=== PATIENT | male | born 1955 | race American Indian/Alaskan Native ===

== ENCOUNTER 2016-08-16 12:31 | Day surgery (SDC) | payer MEDICARE ==
[2016-08-16] MEDS ORDERED: HEPARIN/NS 5000 UNIT/500ML(CATH LAB) 1,000 ML IR ONE (14:45)
[2016-08-16] MEDS ORDERED: NACL 0.9% 250ML 250 ML ONE (14:51)
[2016-08-16] MEDS: XYLOCAINE 2% INFILTRATI ONE ×2 (15:31→15:46)
[2016-08-16] MEDS: HEPARIN 10,000 UNITS/10 ML ONE ×2 (15:31→15:50)
[2016-08-16] MEDS: SUBLIMAZE ONE ×3 (15:32→15:59)
[2016-08-16] MEDS: VERSED ONE ×3 (15:32→16:00)
[2016-08-16] MEDS ORDERED: ANCEF/STERILE WATER 2 GM/20 ML 2 GM/20 ML SYRINGE IV ONE (15:35)
--- NOTE | 2016-08-16 16:24 | Short Stay Summary ---
Short Stay Documentation Date of service: 08/16/16 - History Principal diagnosis: Malfunctioning dialysis access Past Medical History: dialysis, ESRD, other (hypotension) Past Surgical History: Other (prior LUE declots) Social history: no significant social history - Allergies and Medications Current Medications: Allergies No Known Allergies Allergy (Verified 08/16/16 14:35) Home Medications Medication Instructions Recorded Confirmed Last Taken Type Midodrine [Proamatine] 5 mg PO 3XW 08/16/16 08/16/16 08/16/16 06:30 History Sevelamer Carbonate [Renvela] 800 mg PO TIDWM 08/16/16 08/16/16 08/16/16 06:30 History Vit B Comp&C/Folic Acid/Vit D3 1 each PO QDAY 08/16/16 08/16/16 08/16/16 06:30 History [Dialyvite 800 Plus D Wafer] - Physical exam General appearance: no acute distress HEENT: Atraumatic Lungs: Normal air movement Breasts: deferred Heart: Regular rate Gastrointestinal: normal Male Genitourinary: deferred Rectal Exam: deferred Extremities: no ischemia Neurological: Normal speech - Brief post op/procedure progress note Date of procedure: 08/16/16 Pre-op diagnosis: Thrombosed LUE fistula Post-op diagnosis: same Procedure: LUE FGA amd declot Anesthesia: local Surgeon: ALLEN YOUNG Estimated blood loss: minimal Pathology: none Condition: stable - Disposition Condition at discharge: Good Disposition: DISCHARGED TO HOME OR SELFCARE Short Stay Discharge Plan Activity: advance as tolerated Weight Bearing Status: Weight Bear as Tolerated Diet: renal Wound: keep clean and dry, per your surgeon's advice Additional Instructions: F/U with outpatient Hemodialysis clinic
--- NOTE | 2016-08-16 16:31 | Operative Report ---
Operative Report Operative Report: EXAM: LEFT UPPER GENERALLY FISTULOGRAM AND THE CLOT CLINICAL INDICATION: THROMBOSED LEFT UPPER EXTREMITY FISTULA SECONDARY TO REPEATED HYPOTENSION DATE: 08/16/2016 PROCEDURE: Following an explanation of the risks, benefits and alternatives; written informed consent was obtained. The patient was brought to the injury graphic suite and placed in supine position on the examination table. Initial evaluation of the left upper extremity fistula demonstrated thrombus throughout the fistula. Patient's left upper arm was prepped and draped in the usual sterile fashion. The fistula was cannulated with a 7 cm 21-gauge needle directed towards the venous outflow. A 0.018 guidewire was advanced centrally. The needle was removed and a micro-sheath placed. The 0.018 guidewire was exchanged for a 0.035 guidewire and the micro-sheath exchanged for a 7 [place]uran vascular sheath. Accessed towards the arterial anastomosis was obtained in a similar fashion and a 6 [place] sheath placed towards the arterial anastomosis. A 4 [place] vertebral catheter was advanced over the 0.035 guidewire through the venous sheath. Together the guidewire and catheter were advanced centrally. Venography of the central veins to Mr. a widely patent central veins. There is thrombus extending from the axillary vein and a previously placed stent to the sheath insertion site. Mechanical thrombectomy of the fistula was then performed from distal to proximal using a Trerotola mechanical thrombectomy device. The 4 [place]uran vertebral catheter and 0.035 guidewire were then advanced through the arterial sheath through the arterial anastomosis and into the brachial artery. Digital traction angiography demonstrated thrombus from the serial anastomosis to the sheath insertion site. Mechanical thrombectomy of the fistula was then performed from just proximal to the arterial anastomosis to the sheath insertion site. Venoplasty of the arterial anastomosis was performed with a 6 mm balloon. This was also used to sweep the arterial plug. Following venoplasty of the arterial anastomosis, palpable thrill is present throughout the graft however it is somewhat faint. Digital subtraction venography demonstrates 30-40% stenosis within the body of the fistula. An 8 mm balloon was advanced over a guidewire through the venous lumen and deployed across the stenosis. The balloon was insufflated to 15 gm for 30 seconds at multiple locations. The balloon was removed. A strong thrill is present at the fistula. Digital subtraction angiography demonstrates brisk flow throughout the fistula. At this point, the catheters, guidewires and she's were removed and hemostasis achieved using 4-0 Vicryl suture and Dermabond. Sterile dressings were then applied. The patient tolerated the procedure well. There were no immediate post procedure complications. Conscious sedation was performed under the guidance of radiologic nursing. Continuous cardiopulmonary monitoring was utilized. IMPRESSION: 1) Left upper extremity fistulogram demonstrating thrombus throughout left upper extremity fistula secondary to recurrent bouts of hypotension. 2) Mechanical thrombectomy of the fistula as described.
[2016-08-16 16:45] VITALS: BP 130/75
== END 2016-08-16 16:48 | disposition home or self-care (01) ==
LOC: EDSTATUS 14:14 → OPU 14:19
PROVIDERS: ATTEND Radiology Diagnostic Radiology
DX: T82.868A Thrombosis due to vascular prosthetic devices, implants and grafts, initial encounter (principal); N18.6 End stage renal disease; Z99.2 Dependence on renal dialysis; Z87.891 Personal history of nicotine dependence; Y83.2 Surgical operation with anastomosis, bypass or graft as the cause of abnormal reaction of the patient, or of later complication, without mention of misadventure at the time of the procedure
CPT/HCPCS: 36415; 36905; 84132; C1725; C1751; C1757; C1769; C1894; J0690; J1644; J2250; J3010; J7050; Q9967

== ENCOUNTER 2017-10-24 15:14 | Inpatient (IN) | payer MEDICARE ==
[2017-10-24] MEDS ORDERED: ASPIRIN PO ONE (15:50)
[2017-10-24 16:22] LABS: Basophils # (Auto) 0.1 K/mm3 (0.0-0.1); Eosinophils # (Auto) 0.2 K/mm3 (0.0-0.4); Eosinophils % (Auto) 3.7 % (0.0-4.3); Hematocrit 38.4 % (35.5-45.6); Hemoglobin 12.9 gm/dl (11.8-15.2); Lymphocytes # (Auto) 1.5 K/mm3 (1.2-5.4); Lymphocytes % (Auto) 28.1 % (13.4-35.0); Mean Corpuscular HGB Conc 34 % (32-34); Mean Corpuscular Hemoglobin 30 pg (28-32); Mean Corpuscular Volume 89 fl (84-94); Monocytes # (Auto) 0.8 K/mm3 (0.0-0.8); Monocytes % (Auto) 15.9 % (0.0-7.3); Platelet Count 149 K/mm3 (140-440); Red Blood Count 4.31 M/mm3 (3.65-5.03)
[2017-10-24] MEDS ORDERED: PROVENTIL IH ONE (16:31)
[2017-10-24] MEDS ORDERED: D50W (25GM) Syringe IV ONE (16:31)
[2017-10-24] MEDS ORDERED: SODIUM BICARBONATE IV ONE (16:31)
[2017-10-24] MEDS ORDERED: HumuLIN R IV ONE (16:31)
[2017-10-24 16:35] LABS: Calcium 9.1 mg/dL (8.4-10.2)
--- NOTE | 2017-10-24 16:35 | Emergency Department Report ---
ED Palpitations HPI - General Chief Complaint: Arrhythmia/Palpitations Stated Complaint: LOW HEART RATE Time Seen by Provider: 10/24/17 16:25 Source: patient, RN notes reviewed Mode of arrival: Stretcher Limitations: No Limitations - History of Present Illness Initial Comments: This is a 62-year-old male. The patient is previously on known to this provider. He has a past medical history of end-stage renal disease, on dialysis Friday, Friday, Friday. His last dialysis session was on Friday. It was of normal length and duration. He denies dietary indiscretions. His mechanical energy engineer is Dr. Amador Patient was at dialysis today, was found to be bradycardic. He does not take any blood pressure medications that aren't negative inotropes. It was asymptomatic. He was sent to the ER for further evaluation and management. He denies headache, neck pain, chest pain, abdominal pain and shortness of breath. He has no complaints at this time. He denies dizziness and lightheadedness. In the emergency room, he was found to be in third-degree heart block with a heart rate in the 40s. His potassium was initially reported to me over the phone by the laboratory at 5.0, and he was initially ordered for hyperkalemia cocktail. However, laboratory and result of his labs with potassium of 3.7. After discussion with his covering mechanical energy engineer, Dr. Stallworth, it was deemed very unlikely that the patient had electrolyte disturbance that was causing his bradycardia. Therefore, nephrology did not recommend hyperkalemia cocktail or emergent dialysis. From a volume standpoint, patient appeared to be euvolemic or even hypovolemic. Case was discussed with the consulting bookstore clerk, Dr. Cordova, who is going to arrange temporary placement of a pacemaker. Patient did not endorse any risk factors for Lyme disease. The case was presented to the Hospital physician, Dr. Miguel who accepted the patient to the medical service. Complaint: irregular heart beat -: unknown Context: other Associated Symptoms: denies other symptoms - Related Data Home Medications Medication Instructions Recorded Confirmed Last Taken Midodrine [Proamatine] 5 mg PO 3XW 08/16/16 10/24/17 08/16/16 06:30 Sevelamer Carbonate [Renvela] 800 mg PO TIDWM 08/16/16 10/24/1708/16/17 06:30 Vit B Comp C/Folic Acid/Vit D3 1 each PO QDAY 08/16/16 10/24/17 08/16/16 06:30 [Dialyvite 800 Plus D Wafer] Allergies Allergy/AdvReac Type Severity Reaction Status Date / Time No Known Allergies Allergy Verified 08/16/16 14:35 ED Review of Systems ROS: Stated complaint: LOW HEART RATE Other details as noted in HPI Comment: All other systems reviewed and negative ED Past Medical Hx - Past Medical History Hx Hypertension: No Hx Heart Attack/AMI: No Hx Congestive Heart Failure: No Hx Diabetes: No Hx GERD: Yes Hx Renal Disease: Yes (dialysis M, W, F) - Surgical History Past Surgical History?: Yes Additional Surgical History: fistula to left upper arm - Social History Smoking Status: Current Every Day Smoker Substance Use Type: Alcohol - Medications Home Medications: Home Medications Medication Instructions Recorded Confirmed Last Taken Type Midodrine [Proamatine] 5 mg PO 3XW 08/16/16 10/24/17 08/16/16 06:30 History Sevelamer Carbonate [Renvela] 800 mg PO TIDWM 08/16/16 10/24/17 08/16/16 06:30 History Vit B Comp C/Folic Acid/Vit D3 1 each PO QDAY 08/16/16 10/24/17 08/16/16 06:30 History [Dialyvite 800 Plus D Wafer] ED Physical Exam - General Limitations: No Limitations General appearance: alert, in no apparent distress - Head Head exam: Present: atraumatic, normocephalic - Eye Eye exam: Present: normal appearance, EOMI. Absent: nystagmus - ENT ENT exam: Present: normal exam, normal orophraynx, mucous membranes moist, normal external ear exam - Neck Neck exam: Present: normal inspection, full ROM - Respiratory Respiratory exam: Present: normal lung sounds bilaterally. Absent: respiratory distress - Cardiovascular Cardiovascular Exam: Present: bradycardia, irregular rhythm, normal heart sounds. Absent: systolic murmur, diastolic murmur, rubs, gallop - GI/Abdominal GI/Abdominal exam: Present: soft, normal bowel sounds. Absent: distended, tenderness, guarding, rebound, rigid, pulsatile mass - Rectal Rectal exam: Present: deferred - Extremities Exam Extremities exam: Present: full ROM, other (upper extremity graft with no redness, pus or streaking. Chronic venous stasis changes noted in the bilateral lower extremities. There is no palpable cord. There is a negative Homans sign.). Absent: pedal edema, calf tenderness - Back Exam Back exam: Present: normal inspection, full ROM. Absent: tenderness, CVA tenderness (R), paraspinal tenderness, vertebral tenderness - Neurological Exam Neurological exam: Present: alert, oriented X3, CN II-XII intact, other ( Extraocular movements intact. Tongue midline. No facial droop. Facial sensation intact to light touch in the V1, V2, V3 distribution bilaterally. 5 and 5 strength in 4 extremities.. Sensation is intact to light touch in 4 extremities.). Absent: motor sensory deficit - Psychiatric Psychiatric exam: Present: normal affect, normal mood - Skin Skin exam: Present: warm, dry, intact, normal color. Absent: rash ED Course Vital Signs 10/24/17 10/24/17 10/24/17 15:47 17:05 19:25 Temperature 98 F Pulse Rate 45 L 42 L Pulse Rate [ 63 From Monitor] Pulse Rate [ None] Respiratory 16 16 18 Rate Blood Pressure 107/48 Blood Pressure 125/44 [Left] O2 Sat by Pulse 98 95 98 Oximetry 10/24/17 10/24/17 10/24/17 19:30 19:45 20:00 Temperature 98.0 F Pulse Rate Pulse Rate [ From Monitor] Pulse Rate [ 63 63 63 None] Respiratory 18 16 18 Rate Blood Pressure 88/61 117/67 Blood Pressure [Left] O2 Sat by Pulse 98 100 98 Oximetry 10/24/17 10/24/17 10/24/17 20:15 20:30 20:45 Temperature Pulse Rate Pulse Rate [ From Monitor] Pulse Rate [ 63 63 63 None] Respiratory 20 16 18 Rate Blood Pressure 118/62 101/53 111/58 Blood Pressure [Left] O2 Sat by Pulse 100 100 100 Oximetry 10/24/17 10/24/17 10/24/17 21:00 21:15 21:30 Temperature Pulse Rate 64 63 Pulse Rate [ From Monitor] Pulse Rate [ 63 None] Respiratory 18 14 13 Rate Blood Pressure 105/60 112/63 101/66 Blood Pressure [Left] O2 Sat by Pulse 100 100 100 Oximetry 10/24/17 10/24/17 10/24/17 21:45 22:00 22:15 Temperature Pulse Rate 63 63 63 Pulse Rate [ From Monitor] Pulse Rate [ None] Respiratory 18 12 21 Rate Blood Pressure 108/58 99/59 107/66 Blood Pressure [Left] O2 Sat by Pulse 100 100 100 Oximetry 10/24/17 10/24/17 10/24/17 22:31 22:45 23:00 Temperature Pulse Rate 63 63 63 Pulse Rate [ From Monitor] Pulse Rate [ None] Respiratory 14 11 L 13 Rate Blood Pressure 118/70 118/70 115/64 Blood Pressure [Left] O2 Sat by Pulse 98 97 92 Oximetry 10/24/17 10/24/17 10/24/17 23:15 23:31 23:45 Temperature Pulse Rate 64 63 63 Pulse Rate [ From Monitor] Pulse Rate [ None] Respiratory 14 20 17 Rate Blood Pressure 108/74 112/68 105/63 Blood Pressure [Left] O2 Sat by Pulse 95 96 98 Oximetry 10/24/17 10/25/17 10/25/17 23:52 00:00 00:11 Temperature 98.1 F Pulse Rate 63 64 63 Pulse Rate [ 63 From Monitor] Pulse Rate [ None] Respiratory 17 13 15 Rate Blood Pressure 105/63 107/64 104/62 Blood Pressure [Left] O2 Sat by Pulse 99 100 100 Oximetry 10/25/17 10/25/17 10/25/17 00:15 00:31 00:45 Temperature Pulse Rate 63 63 63 Pulse Rate [ From Monitor] Pulse Rate [ None] Respiratory 14 19 15 Rate Blood Pressure 104/62 105/63 105/63 Blood Pressure [Left] O2 Sat by Pulse 100 99 99 Oximetry 10/25/17 10/25/17 10/25/17 01:00 02:01 03:00 Temperature Pulse Rate 63 63 63 Pulse Rate [ From Monitor] Pulse Rate [ None] Respiratory 15 13 19 Rate Blood Pressure 100/61 100/50 94/56 Blood Pressure [Left] O2 Sat by Pulse 99 100 100 Oximetry ED Medical Decision Making - Lab Data Result diagrams: 10/24/17 16:07 10/27/17 03:10 Vital Signs 10/24/17 10/24/17 15:47 17:05 Temperature 98 F Pulse Rate 45 L 42 L Respiratory 16 16 Rate Blood Pressure 107/48 Blood Pressure 125/44 [Left] O2 Sat by Pulse 98 95 Oximetry Lab Results 10/24/17 10/24/1718 Range/Units 16:07 16:07 16:50 WBC 5.3 (4.5-11.0) K/mm3 RBC 4.31 (3.65-5.03) M/mm3 Hgb 12.9 (11.8-15.2) gm/dl Hct 38.4 (35.5-45.6) % MCV 89 (84-94) fl MCH 30 (28-32) pg MCHC 34 (32-34) % RDW 18.0 H (13.2-15.2) % Plt Count 149 (140-440) K/mm3 Lymph % (Auto) 28.1 (13.4-35.0) % [place] % (Auto) 15.9 H (0.0-7.3) % Eos % (Auto) 3.7 (0.0-4.3) % Baso % (Auto) 1.0 (0.0-1.8) % Lymph # 1.5 (1.2-5.4) K/mm3 [place] # 0.8 (0.0-0.8) K/mm3 Eos # 0.2 (0.0-0.4) K/mm3 Baso # 0.1 (0.0-0.1) K/mm3 Seg Neutrophils % 51.3 (40.0-70.0) % Seg Neutrophils # 2.7 (1.8-7.7) K/mm3 Sodium 139 (137-145) mmol/L Potassium 3.7 (3.6-5.0) mmol/L Chloride 93.8 L (98-107) mmol/L Carbon Dioxide 30 (22-30) mmol/L Anion Gap 19 mmol/L BUN 9 (9-20) mg/dL Creatinine 3.4 H (0.8-1.5) mg/dL Estimated GFR 22 ml/min BUN/Creatinine Ratio 3 % Glucose 104 H (75-100) mg/dL Calcium 9.1 (8.4-10.2) mg/dL Magnesium 2.20 (1.7-2.3) mg/dL Troponin T 0.081 H (0.00-0.029) ng/mL Triglycerides 124 (2-149) mg/dL Cholesterol 126 (50-199) mg/dL LDL Cholesterol Direct 58 (50-130) mg/dL HDL Cholesterol 57 (40-59) mg/dL Cholesterol/HDL Ratio 2.21 % TSH (0.270-4.200) mlU/mL Free T4 (0.76-1.46) ng/dL 10/24/17 10/24/17 Range/Units 16:50 16:50 WBC (4.5-11.0) K/mm3 RBC (3.65-5.03) M/mm3 Hgb (11.8-15.2) gm/dl Hct (35.5-45.6) % MCV (84-94) fl MCH (28-32) pg MCHC (32-34) % RDW (13.2-15.2) % Plt Count (140-440) K/mm3 Lymph % (Auto) (13.4-35.0) % [place] % (Auto) (0.0-7.3) % Eos % (Auto) (0.0-4.3) % Baso % (Auto) (0.0-1.8) % Lymph # (1.2-5.4) K/mm3 [place] # (0.0-0.8) K/mm3 Eos # (0.0-0.4) K/mm3 Baso # (0.0-0.1) K/mm3 Seg Neutrophils % (40.0-70.0) % Seg Neutrophils # (1.8-7.7) K/mm3 Sodium (137-145) mmol/L Potassium (3.6-5.0) mmol/L Chloride (98-107) mmol/L Carbon Dioxide (22-30) mmol/L Anion Gap mmol/L BUN (9-20) mg/dL Creatinine (0.8-1.5) mg/dL Estimated GFR ml/min BUN/Creatinine Ratio % Glucose (75-100) mg/dL Calcium (8.4-10.2) mg/dL Magnesium (1.7-2.3) mg/dL Troponin T (0.00-0.029) ng/mL Triglycerides (2-149) mg/dL Cholesterol (50-199) mg/dL LDL Cholesterol Direct (50-130) mg/dL HDL Cholesterol (40-59) mg/dL Cholesterol/HDL Ratio % TSH 1.300 (0.270-4.200) mlU/mL Free T4 1.47 H (0.76-1.46) ng/dL - EKG Data -: EKG Interpreted by Me - EKG Data When compared to previous EKG there are: previous EKG unavailable 10/24/17 17:37 Bradycardia, third-degree AV block, normal axis, not having chest pain, not morphologically consistent with ST elevation myocardial infarction. - Medical Decision Making Differential diagnosis, including the not limited to: Her degree heart block, hyperkalemia, conduction disturbance, Assessment and plan: 62-year-old now with third-degree heart block. He is not hyperkalemic. He has no other symptoms. No risk factors for Lyme disease. This may be a primarily conduction disturbance. He is hemodynamically stable at this time. He is going to the Mixing Machine Tender for a pacemaker Placement. Critical Care Time: Yes Critical care time in (mins) excluding proc time.: 35 Critical care attestation.: If time is entered above; I have spent that time in minutes in the direct care of this critically ill patient, excluding procedure time. Critical Care Time: Critical care time includes multiple bedside reevaluation, multiple discussions with multiple consulting services, including cardiology, nephrology, hospital medicine. ED Disposition Clinical Impression: Third degree AV block, ESRD (end stage renal disease) Disposition: 09 OP ADMIT IP TO THIS HOSP Is pt being admited?: Yes Condition: Good
[2017-10-24] MEDS ORDERED: TYLENOL PO PRN (16:38)
[2017-10-24] MEDS ORDERED: ZOFRAN IV PRN (16:38)
[2017-10-24] MEDS ORDERED: SODIUM CHLORIDE FLUSH SYRINGE 10 ML IV PRN (16:38)
--- NOTE | 2017-10-24 16:38 | History and Physical Report ---
History of Present Illness Chief complaint: My heart is slow History of present illness: 62 YO Male with ESRD on HD (M,W,F), GERD, Nicotine Dependence presents to ED for evaluation. Pt was in his usual state of health and went to his scheduled dialysis session. Pt was found to have bradycardia with heart rate of 41. EMS notified, and upon arrival the patient was found to have symptomatic bradycardia. Pt transported to [facility] for further care and evaluation. Pt seen and evaluated in ED and found to have heart block. Cardiology consulted in ED and patient taken urgently to [facility] for intervention. Pt denies fever, chills, CP , Palpitations, NVD, Syncope, headache, Seizure, BRBPR, Unintentional weight loss, night sweats, skin rash, or recent ill contacts. Pt admitted to ICU. Past History Past Medical History: ESRD Past Surgical History: Other (LUE AVF) Social history: , smoking. denies: alcohol abuse, prescription drug abuse Family history: hypertension Medications and Allergies Allergies Allergy/AdvReac Type Severity Reaction Status Date / Time No Known Allergies Allergy Verified 08/16/16 14:35 Home Medications Medication Instructions Recorded Confirmed Last Taken Type Midodrine [Proamatine] 5 mg PO 3XW 08/16/16 10/24/17 08/16/16 06:30 History Sevelamer Carbonate [Renvela] 800 mg PO TIDWM 08/16/16 10/24/17 08/16/16 06:30 History Vit B Comp C/Folic Acid/Vit D3 1 each PO QDAY 08/16/16 10/24/17 08/16/16 06:30 History [Dialyvite 800 Plus D Wafer] Active Meds: Active Medications Calcium Gluconate 2,000 mg/ (Sodium Chloride) 120 mls @ 660 mls/hr IV ONCE ONE Stop: 10/24/17 16:41 Sodium Bicarbonate (Sodium Bicarbonate) 50 meq IV ONCE ONE Stop: 10/24/17 16:32 Review of Systems Constitutional: other (slow heart beat), no weight loss, no weight gain, no fever, no chills Ears, nose, mouth and throat: no ear pain, no ear discharge, no tinnitis, no decreased hearing, no nose pain, no nasal congestion, no nasal discharge, no sinus pressure Cardiovascular: no chest pain, no orthopnea, no palpitations, no rapid/ irregular heart beat, no edema, no syncope, no lightheadedness Respiratory: no cough, no cough with sputum, no excessive sputum, no hemoptysis , no shortness of breath Gastrointestinal: no abdominal pain, no nausea, no vomiting, no diarrhea, no constipation Genitourinary Male: no dysuria, no hematuria, no flank pain, no discharge, no urinary frequency, no urinary hesitancy, no nocturia, no incontinence Rectal: no pain, no incontinence, no bleeding Musculoskeletal: no neck stiffness, no neck pain, no shooting arm pain, no arm numbness/tingling, no low back pain, no shooting leg pain, no leg numbness/ tingling Integumentary: no rash, no pruritis, no redness, no sores, no wounds, no jaundice, no boils Neurological: no head injury, no transient paralysis, no paralysis, no weakness , no parathesias, no numbness, no tingling, no seizures, no syncope Psychiatric: no anxiety, no memory loss, no change in sleep habits, no sleep disturbances, no insomnia, no hypersomnia, no change in appetite, no change in libido, no suicidal ideation Endocrine: no cold intolerance, no heat intolerance, no polyphagia, no excessive thirst, no polydipsia, no polyuria, no nocturia, no excessive sweating Hematologic/Lymphatic: no easy bruising, no easy bleeding Allergic/Immunologic: no urticaria, no allergic rhinitis Exam - Constitutional Vitals: Temp Pulse Resp BP Pulse Ox 98 F 45 L 16 107/48 98 10/24/17 15:47 10/24/17 15:47 10/24/17 15:47 10/24/17 15:47 10/24/17 15:47 General appearance: Present: mild distress - EENT Eyes: Present: PERRL ENT: hearing intact, clear oral mucosa - Neck Neck: Present: supple, normal ROM - Respiratory Respiratory effort: normal Respiratory: bilateral: CTA - Cardiovascular Rhythm: other (bradycardia) Heart Sounds: Present: S1 & S2. Absent: rub, click - Extremities Extremities: pulses symmetrical, No edema Extremity abnormal: edema Peripheral Pulses: within normal limits - Abdominal General gastrointestinal: Present: soft, non-tender, non-distended, normal bowel sounds Male genitourinary: Present: normal - Integumentary Integumentary: Present: clear, warm, dry - Musculoskeletal Musculoskeletal: gait normal, strength equal bilaterally - Psychiatric Psychiatric: appropriate mood/affect, intact judgment & insight - Neurologic Neurologic: CNII-XII intact, moves all extremities Results - Labs CBC & Chem 7: 10/24/17 16:07 10/24/17 16:07 Labs: Abnormal lab results 10/24/17 10/24/17 Range/Units 16:07 16:07 RDW 18.0 H (13.2-15.2) % [place] % (Auto) 15.9 H (0.0-7.3) % Chloride 93.8 L (98-107) mmol/L Creatinine 3.4 H (0.8-1.5) mg/dL Glucose 104 H (75-100) mg/dL Troponin T 0.081 H (0.00-0.029) ng/mL Assessment and Plan - Patient Problems (1) Third degree AV block Current Visit: No Status: Acute Plan to address problem: Cardiology consulted, Pt taken urgently to labor and delivery registered nurse for pacemeker placement. The high probability of a clinically significant, sudden or life threatening deterioration of the [cardiac, renal, pulmonary] system(s) required my full and direct attention, intervention and personal management. The aggregate critical care time was [65] minutes. This time is in addition to time spent performing reported procedures but includes the following: [x] Data Review and interpretation [x] Patient assessment and monitoring of vital signs [x] Documentation [x] Medication orders and management (2) GERD (gastroesophageal reflux disease) Current Visit: Yes Status: Acute Qualifiers: Esophagitis presence: without esophagitis Qualified Code(s): K21.9 - Gastro -esophageal reflux disease without esophagitis Plan to address problem: PPI therapy, supportive care (3) Nicotine dependence Current Visit: Yes Status: Acute Qualifiers: Substance use status: in withdrawal Plan to address problem: supportive care. (4) ESRD (end stage renal disease) Current Visit: No Status: Acute Plan to address problem: nephrology consulted in ED, dialysis as per renal team. (5) DVT prophylaxis Current Visit: Yes Status: Acute Plan to address problem: scd to ble while in bed
[2017-10-24 16:51] LABS: Chol/HDL Ratio 2.21 %
--- NOTE | 2017-10-24 17:14 | Consultation ---
History of Present Illness Consult date: 10/24/17 Consult reason: other (Complete heart block) History of present illness: This is a 62yr old male with end stage renal disease who was sent from dialysis with bradycardia, found to be in 3rd degree AV block, with a rate of 41. The etiology of his heart block is uncertain. Patient remains asymptomatic. His blood pressure is stable. He has a normal potassium of 3.4. TSH results are pending. Patient denies a prior cardiac history. Cardiac consultation was requested. Medications and Allergies Allergies Allergy/AdvReac Type Severity Reaction Status Date / Time No Known Allergies Allergy Verified 08/16/16 14:35 Home Medications Medication Instructions Recorded Confirmed Last Taken Type Midodrine [Proamatine] 5 mg PO 3XW 08/16/16 10/24/17 08/16/16 06:30 History Sevelamer Carbonate [Renvela] 800 mg PO TIDWM 08/16/16 10/24/17 08/16/16 06:30 History Vit B Comp C/Folic Acid/Vit D3 1 each PO QDAY 08/16/16 10/24/17 08/16/16 06:30 History [Dialyvite 800 Plus D Wafer] Active Meds: Active Medications Acetaminophen (Tylenol) 650 mg PO Q4H PRN PRN Reason: Pain MILD(1-3)/Fever >100.5/TOURE Calcium Gluconate 2,000 mg/ (Sodium Chloride) 120 mls @ 360 mls/hr IV ONCE ONE Stop: 10/24/17 17:49 Ondansetron HCl (Zofran) 4 mg IV Q8H PRN PRN Reason: Nausea And Vomiting Sodium Chloride (Sodium Chloride Flush Syringe 10 Ml) 10 ml IV BID LILI Sodium Chloride (Sodium Chloride Flush Syringe 10 Ml) 10 ml IV PRN PRN PRN Reason: LINE FLUSH Physical Examination Vital Signs Temp Pulse Resp BP Pulse Ox 98 F 45 L 16 107/48 98 10/24/17 15:47 10/24/17 15:47 10/24/17 15:47 10/24/17 15:47 10/24/17 15:47 General appearance: no acute distress HEENT: Positive: PERRL Cardiac: Positive: Bradycardia Lungs: Positive: Decreased Breath Sounds Neuro: Positive: Grossly Intact Extremities: Absent: edema Results 10/24/17 16:07 10/24/17 16:07 Lipids 10/24/17 Range/Units 16:07 Triglycerides 124 (2-149) mg/dL Cholesterol 126 (50-199) mg/dL HDL Cholesterol 57 (40-59) mg/dL Cholesterol/HDL Ratio 2.21 % CBC 10/24/17 Range/Units 16:07 WBC 5.3 (4.5-11.0) K/mm3 RBC 4.31 (3.65-5.03) M/mm3 Hgb 12.9 (11.8-15.2) gm/dl Hct 38.4 (35.5-45.6) % Plt Count 149 (140-440) K/mm3 Lymph # 1.5 (1.2-5.4) K/mm3 [place] # 0.8 (0.0-0.8) K/mm3 Eos # 0.2 (0.0-0.4) K/mm3 Baso # 0.1 (0.0-0.1) K/mm3 Comprehensive Metabolic Panel 10/24/17 Range/Units 16:07 Sodium 139 (137-145) mmol/L Potassium 3.7 (3.6-5.0) mmol/L Chloride 93.8 L (98-107) mmol/L Carbon Dioxide 30 (22-30) mmol/L BUN 9 (9-20) mg/dL Creatinine 3.4 H (0.8-1.5) mg/dL Glucose 104 H (75-100) mg/dL Calcium 9.1 (8.4-10.2) mg/dL Assessment and Plan - Patient Problems (1) Third degree AV block Current Visit: No Status: Acute Plan to address problem: We will proceed with placement of a temporary pacemaker. (2) ESRD (end stage renal disease) Current Visit: No Status: Acute
[2017-10-24] MEDS ORDERED: HEPARIN/NS 5000 UNIT/500ML(CATH LAB) 1,000 ML IR ONE (17:22)
[2017-10-24] MEDS ORDERED: HEPARIN 10,000 UNITS/10 ML ONE (17:22)
[2017-10-24] MEDS ORDERED: SUBLIMAZE ONE (17:23)
[2017-10-24] MEDS ORDERED: NACL 0.9% 500 ML 500 ML ONE (17:23)
[2017-10-24] MEDS ORDERED: VERSED ONE (17:23)
[2017-10-24] MEDS ORDERED: XYLOCAINE 2% INFILTRATI ONE (17:23)
[2017-10-24] MEDS ORDERED: CALCIUM GLUCONATE 2,000 MG in NACL 0.9% 100 ML IV ONE (17:30)
[2017-10-24] MEDS ORDERED: NACL 0.9% 100 ML IV PRN (20:30)
--- NOTE | 2017-10-24 20:30 | Consultation ---
History of Present Illness Consult date: 10/24/17 Requesting physician: JOHN MACK Reason for consult: other (Complete Heart Block) History of present illness: PULMONARY/CCM CONSULT NOTE (Full dictation # [id number]) Please see dictated notes for full details Past History Past Medical History: ESRD Past Surgical History: Other (LUE AVF) Social history: , smoking. denies: alcohol abuse, prescription drug abuse Family history: hypertension Medications and Allergies Allergies Allergy/AdvReac Type Severity Reaction Status Date / Time No Known Allergies Allergy Verified 08/16/16 14:35 Home Medications Medication Instructions Recorded Confirmed Last Taken Type Midodrine [Proamatine] 5 mg PO 3XW 08/16/16 10/24/17 08/16/16 06:30 History Sevelamer Carbonate [Renvela] 800 mg PO TIDWM 08/16/16 10/24/17 08/16/16 06:30 History Vit B Comp C/Folic Acid/Vit D3 1 each PO QDAY 08/16/16 10/24/17 08/16/16 06:30 History [Dialyvite 800 Plus D Wafer] Active Meds: Active Medications Acetaminophen (Tylenol) 650 mg PO Q4H PRN PRN Reason: Pain MILD(1-3)/Fever >100.5/TOURE Ondansetron HCl (Zofran) 4 mg IV Q8H PRN PRN Reason: Nausea And Vomiting Sodium Chloride (Sodium Chloride Flush Syringe 10 Ml) 10 ml IV BID LILI Sodium Chloride (Sodium Chloride Flush Syringe 10 Ml) 10 ml IV PRN PRN PRN Reason: LINE FLUSH Physical Examination Vital signs: Vital Signs Temp Pulse Resp BP Pulse Ox 98 F 45 L 16 107/48 98 10/24/17 15:47 10/24/17 15:47 10/24/17 15:47 10/24/17 15:47 10/24/17 15:47 Results - Laboratory Findings CBC and BMP: 10/24/17 16:07 10/25/17 11:30 Abnormal lab findings: Abnormal Labs 10/24/17 10/24/17 10/24/17 16:07 16:07 16:50 RDW 18.0 H [place] % (Auto) 15.9 H Chloride 93.8 L Creatinine 3.4 H Glucose 104 H Troponin T 0.081 H Free T4 1.47 H 10/24/17 19:51 RDW [place] % (Auto) Chloride Creatinine Glucose Troponin T 0.076 H Free T4
--- NOTE | 2017-10-24 21:22 | XRay Report ---
FINAL REPORT PROCEDURE: Chest. TECHNIQUE: Portable AP view. HISTORY: End stage renal disease, heart block. COMPARISON: No prior studies are available for comparison. FINDINGS: The heart size is normal. There is mild tortuosity and calcification in the thoracic aorta. The right lung is clear. There is some opacity in the left costophrenic angle. This could represent early pneumonia or a small pleural effusion. The soft tissues are unremarkable. There is a vascular stent in the left arm. The regional skeleton appears intact. IMPRESSION: Early left basilar pneumonia versus small pleural effusion.
--- NOTE | 2017-10-25 10:41 | Procedure Note ---
INDICATION: Complete heart block with a junctional escape rhythm. DESCRIPTION OF PROCEDURE: After obtaining the consent, the patient was draped using sterile technique. Under ultrasound guidance, the right IJ was cannulated. An 0.035 wire was inserted. Positioning was verified using x-ray. A 6-[place] vascular sheath was then inserted into the right internal jugular vein. A balloon-tipped pacemaker wire was inserted and positioned in the RV apex. Pacing was verified. The pacemaker parameters were set at 60 beats per minute with a 5-milliampere amplitude and 5 millivolt sensitivity. No complications occurred during the procedure. Estimated blood loss was minimal. No sedation was given during the procedure. IMPRESSION: Successful insertion of a transvenous pacemaker through right internal jugular vein. RECOMMENDATION: Observe over the weekend and proceed with a permanent pacemaker insertion, early next week. JOB# [id number] ONELIA/KAMINI
--- NOTE | 2017-10-25 11:24 | Progress Note ---
Assessment and Plan - Patient Problems (1) SSS (sick sinus syndrome) Current Visit: Yes Status: Acute (2) ESRD (end stage renal disease) on dialysis Current Visit: Yes Status: Acute Subjective Date of service: 10/25/17 Interval history: NO C\O Objective Vital Signs Temp Pulse Pulse Pulse Resp BP BP 10/25/17 11:00 60 15 99/64 10/25/17 10:00 60 18 97/51 10/25/17 09:00 60 18 101/59 10/25/17 08:00 97.8 F 60 15 96/63 10/25/17 07:00 64 17 97/53 10/25/17 06:00 63 21 95/62 10/25/17 05:00 63 11 L 95/62 10/25/17 04:40 98.1 F 10/25/17 04:30 63 18 10/25/17 04:00 63 17 97/51 10/25/17 03:00 63 19 94/56 10/25/17 02:01 63 13 100/50 10/25/17 01:00 63 15 100/61 10/25/17 00:45 63 15 105/63 10/25/17 00:31 63 19 105/63 10/25/17 00:15 63 14 104/62 10/25/17 00:11 63 15 104/62 10/25/17 00:00 98.1 F 64 63 13 107/64 10/24/17 23:52 63 17 105/63 10/24/17 23:45 63 17 105/63 10/24/17 23:31 63 20 112/68 10/24/17 23:15 64 14 108/74 10/24/17 23:00 63 13 115/64 10/24/17 22:45 63 11 L 118/70 10/24/17 22:31 63 14 118/70 10/24/17 22:15 63 21 107/66 10/24/17 22:00 63 12 99/59 10/24/17 21:45 63 18 108/58 10/24/17 21:30 63 13 101/66 10/24/17 21:15 64 14 112/63 10/24/17 21:00 63 18 105/60 10/24/17 20:45 63 18 111/58 10/24/17 20:30 63 16 101/53 10/24/17 20:15 63 20 118/62 10/24/17 20:00 98.0 F 63 18 117/67 10/24/17 19:45 63 16 88/61 10/24/17 19:30 63 18 10/24/17 19:25 63 18 10/24/17 17:05 42 L 16 125/44 10/24/17 15:47 98 F 45 L 16 107/48 Pulse Ox 10/25/17 11:00 99 10/25/17 10:00 96 10/25/17 09:00 100 10/25/17 08:00 94 10/25/17 07:00 96 10/25/17 06:00 95 10/25/17 05:00 97 10/25/17 04:40 10/25/17 04:30 100 10/25/17 04:00 100 10/25/17 03:00 100 10/25/17 02:01 100 10/25/17 01:00 99 10/25/17 00:45 99 10/25/17 00:31 99 10/25/17 00:15 100 10/25/17 00:11 100 10/25/17 00:00 100 10/24/17 23:52 99 10/24/17 23:45 98 10/24/17 23:31 96 10/24/17 23:15 95 10/24/17 23:00 92 10/24/17 22:45 97 10/24/17 22:31 98 10/24/17 22:15 100 10/24/17 22:00 100 10/24/17 21:45 100 10/24/17 21:30 100 10/24/17 21:15 100 10/24/17 21:00 100 10/24/17 20:45 100 10/24/17 20:30 100 10/24/17 20:15 100 10/24/17 20:00 98 10/24/17 19:45 100 10/24/17 19:30 98 10/24/17 19:25 98 10/24/17 17:05 95 10/24/17 15:47 98 - Physical Examination General: No Apparent Distress HEENT: Positive: PERRL Neck: Positive: neck supple Cardiac: Positive: Regular Rate, Other (TEMP PACED-R.IJ) Lungs: Positive: clear to auscultation Neuro: Positive: Grossly Intact Abdomen: Positive: Other (HERNIA) Extremities: Absent: edema (NO) - Labs and Meds Lipids 10/24/17 Range/Units 16:07 Triglycerides 124 (2-149) mg/dL Cholesterol 126 (50-199) mg/dL HDL Cholesterol 57 (40-59) mg/dL Cholesterol/HDL Ratio 2.21 % CBC 10/24/17 Range/Units 16:07 WBC 5.3 (4.5-11.0) K/mm3 RBC 4.31 (3.65-5.03) M/mm3 Hgb 12.9 (11.8-15.2) gm/dl Hct 38.4 (35.5-45.6) % Plt Count 149 (140-440) K/mm3 Lymph # 1.5 (1.2-5.4) K/mm3 [place] # 0.8 (0.0-0.8) K/mm3 Eos # 0.2 (0.0-0.4) K/mm3 Baso # 0.1 (0.0-0.1) K/mm3 Comprehensive Metabolic Panel 10/24/17 Range/Units 16:07 Sodium 139 (137-145) mmol/L Potassium 3.7 (3.6-5.0) mmol/L Chloride 93.8 L (98-107) mmol/L Carbon Dioxide 30 (22-30) mmol/L BUN 9 (9-20) mg/dL Creatinine 3.4 H (0.8-1.5) mg/dL Glucose 104 H (75-100) mg/dL Calcium 9.1 (8.4-10.2) mg/dL
[2017-10-25] MEDS ORDERED: NACL 0.9% 100 ML IV PRN ×2 (11:53→14:46)
[2017-10-25 11:57] LABS: Calcium 9.2 mg/dL (8.4-10.2)
--- NOTE | 2017-10-25 12:05 | Progress Note ---
Assessment and Plan Assessment and plan: 62 YO Male with ESRD on HD (M,W,F), GERD, Nicotine Dependence presents to ED for evaluation. Pt was in his usual state of health and went to his scheduled dialysis session. Pt was found to have bradycardia with heart rate of 41. EMS notified, and upon arrival the patient was found to have symptomatic bradycardia. Pt transported to [facility] for further care and evaluation. Pt seen and evaluated in ED and found to have heart block. Cardiology consulted in ED and patient taken urgently to [facility] for intervention. Pt denies fever, chills, CP , Palpitations, NVD, Syncope, headache, Seizure, BRBPR, Unintentional weight loss, night sweats, skin rash, or recent ill contacts. Pt admitted to ICU. 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 Continues on external pacemaker No fever noted blood pressure controlled Hospitalist Physical - Physical exam Narrative exam: VITAL SIGNS: Reviewed. GENERAL: The patient appeared well nourished and normally developed. Vital signs as documented. HEAD: No signs of head trauma. EYES: Pupils are equal. Extraocular motions intact. EARS: Hearing grossly intact. MOUTH: Oropharynx is normal. NECK: No adenopathy, no JVD. CHEST: Chest with clear breath sounds bilaterally. No wheezes, rales, or rhonchi. CARDIAC: Paced rhythm. S1 and S2, VASCULAR: No Edema. Peripheral pulses normal and equal in all extremities. ABDOMEN: Soft, without detectable tenderness. No sign of distention. No rebound or guarding, and no masses palpated. Bowel Sounds normal. MUSCULOSKELETAL: Good range of motion of all major joints. Extremities without clubbing, cyanosis or edema. NEUROLOGIC EXAM: Alert and oriented x 3. No focal sensory or strength deficits. Speech normal. Follows commands. PSYCHIATRIC: Mood normal. SKIN: Temporary pacemaker via right IJ - Constitutional Vitals: Temp Pulse Resp BP Pulse Ox 97.8 F 60 15 99/64 99 10/25/17 08:00 10/25/17 11:00 10/25/17 11:00 10/25/17 11:00 10/25/17 11:00 General appearance: Present: mild distress Results - Labs CBC & Chem 7: 10/24/17 16:07 10/25/17 11:30 Labs: Laboratory Last Values WBC 5.3 K/mm3 (4.5-11.0) 10/24/17 16:07 RBC 4.31 M/mm3 (3.65-5.03) 10/24/17 16:07 Hgb 12.9 gm/dl (11.8-15.2) 10/24/17 16:07 Hct 38.4 % (35.5-45.6) 10/24/17 16:07 MCV 89 fl (84-94) 10/24/17 16:07 MCH 30 pg (28-32) 10/24/17 16:07 MCHC 34 % (32-34) 10/24/17 16:07 RDW 18.0 % (13.2-15.2) H 10/24/17 16:07 Plt Count 149 K/mm3 (140-440) 10/24/17 16:07 Lymph % (Auto) 28.1 % (13.4-35.0) 10/24/17 16:07 [place] % (Auto) 15.9 % (0.0-7.3) H 10/24/17 16:07 Eos % (Auto) 3.7 % (0.0-4.3) 10/24/17 16:07 Baso % (Auto) 1.0 % (0.0-1.8) 10/24/17 16:07 Lymph # 1.5 K/mm3 (1.2-5.4) 10/24/17 16:07 [place] # 0.8 K/mm3 (0.0-0.8) 10/24/17 16:07 Eos # 0.2 K/mm3 (0.0-0.4) 10/24/17 16:07 Baso # 0.1 K/mm3 (0.0-0.1) 10/24/17 16:07 Seg Neutrophils % 51.3 % (40.0-70.0) 10/24/17 16:07 Seg Neutrophils # 2.7 K/mm3 (1.8-7.7) 10/24/17 16:07 Sodium 138 mmol/L (137-145) 10/25/17 11:30 Potassium 3.4 mmol/L (3.6-5.0) L 10/25/17 11:30 Chloride 94.3 mmol/L (98-107) L 10/25/17 11:30 Carbon Dioxide 31 mmol/L (22-30) H 10/25/17 11:30 Anion Gap 16 mmol/L 10/25/17 11:30 BUN 17 mg/dL (9-20) 10/25/17 11:30 Creatinine 4.5 mg/dL (0.8-1.5) H 10/25/17 11:30 Estimated GFR 16 ml/min 10/25/17 11:30 BUN/Creatinine Ratio 4 % 10/25/17 11:30 Glucose 128 mg/dL (75-100) H 10/25/17 11:30 POC Glucose 135 (70-105) H 10/25/17 04:45 Calcium 9.2 mg/dL (8.4-10.2) 10/25/17 11:30 Magnesium 2.20 mg/dL (1.7-2.3) 10/24/17 16:50 Troponin T 0.087 ng/mL (0.00-0.029) H 10/24/17 21:38 Triglycerides 124 mg/dL (2-149) 10/24/17 16:07 Cholesterol 126 mg/dL (50-199) 10/24/17 16:07 LDL Cholesterol Direct 58 mg/dL (50-130) 10/24/17 16:07 HDL Cholesterol 57 mg/dL (40-59) 10/24/17 16:07 Cholesterol/HDL Ratio 2.21 % 10/24/17 16:07 TSH 1.300 mlU/mL (0.270-4.200) 10/24/17 16:50 Free T4 1.47 ng/dL (0.76-1.46) H 10/24/17 16:50 - Imaging and Cardiology Chest x-ray: image reviewed (small right-sided pleural effusion)
[2017-10-25 12:45] LABS: Hepatitis A Antibody IgM Non-Reactive (NonReactive); Hepatitis B Core IgM Non-Reactive (NonReactive); Hepatitis B Surface Antigen Non-Reactive (Negative); Hepatitis C Virus Antibody Non-Reactive (NonReactive)
[2017-10-25 14:02] LABS: Alanine Aminotransferase 8 units/L (7-56); Albumin 3.4 g/dL (3.9-5); Bilirubin,Direct < 0.2 mg/dL (0-0.2)
--- NOTE | 2017-10-25 14:12 | Consultation ---
History of Present Illness - Reason for Consult Consult date: 10/25/17 end stage renal disease - History of Present Illness HPI: Mr Peralta is a 62 y/o M with a PMH of ESRD on HD MWF via LUE AVF, GERD, Nicotine dependace who has been admitted to the [facility] with heart block. Pt is s/ p transcutaneous pacer. He currently denies CP, SHOB, N/V, belly pain, diarrhea. He says he did go to his HD unit yesterday where his blood was cleaned but no fluid was pulled out due to bradycardia and low BP. ROS: As in HPI otherwise 12 point review of systems -ve Past History Past Medical History: ESRD Past Surgical History: Other (LUE AVF) Social history: , smoking. denies: alcohol abuse, prescription drug abuse Family history: hypertension Medications and Allergies Allergies Allergy/AdvReac Type Severity Reaction Status Date / Time No Known Allergies Allergy Verified 08/16/16 14:35 Home Medications Medication Instructions Recorded Confirmed Last Taken Type Midodrine [Proamatine] 5 mg PO 3XW 08/16/16 10/24/17 08/16/16 06:30 History Sevelamer Carbonate [Renvela] 800 mg PO TIDWM 08/16/16 10/24/17 08/16/16 06:30 History Vit B Comp C/Folic Acid/Vit D3 1 each PO QDAY 08/16/16 10/24/17 08/16/16 06:30 History [Dialyvite 800 Plus D Wafer] Active Meds: Active Medications Acetaminophen (Tylenol) 650 mg PO Q4H PRN PRN Reason: Pain MILD(1-3)/Fever >100.5/TOURE Famotidine (Pepcid) 20 mg PO QDAY LILI Heparin Sodium (Porcine) (Heparin) 5,000 unit SUB-Q Q12HR LILI Sodium Chloride (Nacl 0.9%) 100 mls @ 999 mls/hr IV VIKRAM PRN PRN Reason: Hypotension Sodium Chloride (Nacl 0.9%) 100 mls @ 999 mls/hr IV VIKRAM PRN PRN Reason: Hypotension Ondansetron HCl (Zofran) 4 mg IV Q8H PRN PRN Reason: Nausea And Vomiting Sodium Chloride (Sodium Chloride Flush Syringe 10 Ml) 10 ml IV BID LILI Sodium Chloride (Sodium Chloride Flush Syringe 10 Ml) 10 ml IV PRN PRN PRN Reason: LINE FLUSH Exam - Vital Signs Vital signs: Vital Signs Temp Pulse Resp BP Pulse Ox 98 F 45 L 16 107/48 98 10/24/17 15:47 10/24/17 15:47 10/24/17 15:47 10/24/17 15:47 10/24/17 15:47 - Physical Exam Narrative exam: GE:AAOX3 HEENT:PERRLA Chest:CTAB CVS:Paced Abd:Soft/ND/BS+ Ext: No cce, LUE AVF Psyche:Appropriate mood Results - Lab Results 10/24/17 16:07 10/25/17 11:30 Most recent lab results Calcium 9.2 mg/dL (8.4-10.2) 10/25/17 11:30 Magnesium 2.20 mg/dL (1.7-2.3) 10/24/17 16:50 Assessment and Plan ESRD on Hemodialysis: -MWF OP via LUE AVF -HD today as did not get UF yesterday. Will eval for HD need daily -Check BMP, Mg, Phos daily Third Degree AV block: -Cards on board -Pacemaker placement per Cards Hyperphosphatemia: -Can continue home Phos binder GERD: -On PPI Nicotine dependance: -Per primary Plan d/w HD VIBHA. Beto Stallworth [phone]
[2017-10-25] MEDS: PEPCID PO SCH (15:36)
[2017-10-25] MEDS: SODIUM CHLORIDE FLUSH SYRINGE 10 ML IV SCH (15:38)
[2017-10-25] MEDS: HEPARIN SUB-Q SCH (15:38)
--- NOTE | 2017-10-25 16:20 | Progress Note ---
Assessment and Plan Symptomatic Bradycardia 3rd degree heart block ESRD on Dialysis Tobacco Use Disorder GERD Small right-sided pleural effusion Abdominal hernia - continue temporary PCM - follow electrolytes - HD/UF per nephrology prescription - continue GI & VTE prophylaxis - smoking cessation counselling > 15 mins provided - continue other care per attending / other consultants ... continue to watch in ICU ....re-evaluate in am & prn ... 35' Subjective Date of service: 10/25/17 Principal diagnosis: Symptomatic Bradycardia; 3rd degree heart block; ESRD on Dialysis Interval history: Patient is seen today for: Symptomatic Bradycardia; 3rd degree heart block; ESRD on Dialysis Seen and examined at bedside; 24hour events reviewed; nursing and respiratory care staff consulted; no adverse overnight events reported to me; resting peacefully in bed; denies acute chest pains or increased SOB; remains intermittently paced; awaiting PPM Objective Vital Signs - 12hr 10/25/17 10/25/17 10/25/17 04:30 04:40 05:00 Temperature 98.1 F Pulse Rate 63 Pulse Rate [ 63 From Monitor] Respiratory 18 11 L Rate Blood Pressure 95/62 O2 Sat by Pulse 100 97 Oximetry 10/25/17 10/25/17 10/25/17 06:00 07:00 08:00 Temperature 97.8 F Pulse Rate 63 64 60 Pulse Rate [ From Monitor] Respiratory 21 17 15 Rate Blood Pressure 95/62 97/53 96/63 O2 Sat by Pulse 95 96 94 Oximetry 10/25/17 10/25/17 10/25/17 09:00 10:00 11:00 Temperature Pulse Rate 60 60 60 Pulse Rate [ From Monitor] Respiratory 18 18 15 Rate Blood Pressure 101/59 97/51 99/64 O2 Sat by Pulse 100 96 99 Oximetry 10/25/17 10/25/17 10/25/17 11:15 11:30 11:45 Temperature 97.8 F Pulse Rate 60 60 60 Pulse Rate [ From Monitor] Respiratory 14 Rate Blood Pressure 105/64 112/68 98/67 O2 Sat by Pulse Oximetry 10/25/17 10/25/17 10/25/17 12:00 12:15 12:30 Temperature 97.8 F Pulse Rate 60 60 60 Pulse Rate [ From Monitor] Respiratory 12 Rate Blood Pressure 108/70 109/71 115/73 O2 Sat by Pulse 100 Oximetry 10/25/17 10/25/17 10/25/17 12:45 13:00 13:15 Temperature Pulse Rate 60 60 60 Pulse Rate [ From Monitor] Respiratory 11 L Rate Blood Pressure 94/66 106/64 102/57 O2 Sat by Pulse 100 Oximetry 10/25/17 10/25/17 10/25/17 13:30 13:45 14:00 Temperature Pulse Rate 60 60 60 Pulse Rate [ From Monitor] Respiratory 9 L Rate Blood Pressure 103/64 94/70 81/49 O2 Sat by Pulse 99 Oximetry 10/25/17 10/25/17 10/25/17 14:15 15:00 16:00 Temperature 97.8 F 97.6 F Pulse Rate 60 61 Pulse Rate [ From Monitor] Respiratory 11 L 12 Rate Blood Pressure 93/50 93/55 O2 Sat by Pulse 73 L Oximetry Constitutional: no acute distress, alert Eyes: non-icteric ENT: oropharynx moist, other (mallampatti 2 ) Neck: supple, no lymphadenopathy, no JVD, other (no thyromegaly) Effort: mildly labored Ascultation: Bilateral: diminished breath sounds, rhonchi Percussion: Bilateral: not dull Cardiovascular: regular rate and rhythm, other (no R/M) Gastrointestinal: normoactive bowel sounds, soft, non-tender, non-distended, other (no palpable HSM) Integumentary: normal Extremities: no cyanosis, no edema, pulses normal, no ischemia or petechiae Neurologic: normal mental status, non-focal exam, pupils equal and round, motor strength normal and Psychiatric: mood appropriate, affect normal CBC and BMP: 10/24/17 16:07 10/25/17 11:30 Abnormal lab findings: Abnormal Labs 10/24/17 10/24/17 10/24/17 16:07 16:07 16:50 RDW 18.0 H [place] % (Auto) 15.9 H Potassium Chloride 93.8 L Carbon Dioxide Creatinine 3.4 H Glucose 104 H POC Glucose Alkaline Phosphatase Troponin T 0.081 H Albumin Free T4 1.47 H 10/24/17 10/24/17 10/25/17 19:51 21:38 00:35 RDW [place] % (Auto) Potassium Chloride Carbon Dioxide Creatinine Glucose POC Glucose 240 H Alkaline Phosphatase Troponin T 0.076 H 0.087 H Albumin Free T4 10/25/17 10/25/17 10/25/17 04:45 08:21 11:30 RDW [place] % (Auto) Potassium 3.4 L Chloride 94.3 L Carbon Dioxide 31 H Creatinine 4.5 H Glucose 128 H POC Glucose 135 H 116 H Alkaline Phosphatase Troponin T Albumin Free T4 10/25/17 10/25/17 10/25/17 11:53 12:00 15:55 RDW [place] % (Auto) Potassium Chloride Carbon Dioxide Creatinine Glucose POC Glucose 117 H 187 H Alkaline Phosphatase 176 H Troponin T Albumin 3.4 L Free T4 Chest x-ray: image reviewed Allied health notes reviewed: nursing
[2017-10-26] MEDS: HEPARIN SUB-Q SCH ×2 (00:17→10:30)
[2017-10-26] MEDS: SODIUM CHLORIDE FLUSH SYRINGE 10 ML IV SCH ×4 (02:01→22:00)
--- NOTE | 2017-10-26 07:47 | Consultation ---
PULMONARY CRITICAL CARE CONSULTATION NOTE CONSULTING PHYSICIAN: Dr. Miguel. REASON FOR CONSULTATION: Complete heart block, need for ICU admission. CHIEF COMPLAINT AND HISTORY OF PRESENT ILLNESS: The patient is a 62-year-old -[place]isian male with past medical history significant amongst other things for a diagnosis of end-stage renal disease, on dialysis as well as nicotine tobacco use disorder who showed up in the Emergency Room after he was sent above from his dialysis session. He was bradycardic. His heart rate was as low as 41. Family says in the 30s. In the Emergency Room, he was found to have symptomatic bradycardia, further evaluation diagnosed in with complete heart block. Cardiology was consulted. He was emergently taken to the dock or pier laborer for placement of a temporary intravenous pacemaker and an Intensive Care Unit admission was requested thereafter. I stopped by to see the patient. He was feeling a little bit better. It seems like he was ____ as others around him realized that he was. He denied any chest pains. He denied nausea or vomiting. He denied any prior history of palpitations. In retrospect, he has had the periods of lethargy and reduced energy, but it is unclear if those were related to bradycardic episodes. It really is as much of the history of presentation as I have. I should mention they deny starting any new medications. As far as they know, he was not on any rate control drugs. Despite his symptoms, he had no loss of consciousness. He had no seizures. He had no focal weakness. No signs of constitutional symptoms otherwise. PAST MEDICAL HISTORY: Again, end-stage renal disease, gastroesophageal reflux disease, tobacco use disorder. PAST SURGICAL HISTORY: Left upper extremity AV graft. MEDICATIONS: At the time I saw him were reviewed, pertinent medications include the following: Zofran 4 mg IV q.8h. p.r.n. nausea and vomiting. He was on Tylenol 650 mg p.o. q.4h. p.r.n. He was on aspirin, received 325 mg dose once and had received some insulin at presentation along with I believe sodium bicarbonate, presumably for hyperkalemia. ALLERGIES: No known drug allergies. DIET: Well-built small statured gentleman. Denies acute weight loss or gain in the preceding few weeks to months. FAMILY AND SOCIAL HISTORY: Lives in the community. He is . He denies alcohol or illicit drug use or abuse. He does smoke. He has about a 10+ pack year tobacco smoking history. There is a family history of hypertension. REVIEW OF SYSTEMS: Again, he denied no loss of consciousness. No new-onset seizures. He denied significant weight loss or gain in preceding few weeks to months. He denied any odynophagia. He denied any tinnitus. He denied any nasal discharge or sinus pressure. He denied any cough or expectorations. Denied any chest pains. Denied any abdominal pain. Denied melena. Denied hematochezia. Denied hematuria. Denied dysuria. Denied any hesitancy or frequency. He denies polyuria or polydipsia. He denies heat or cold intolerance. He denied any new rashes on his body. Complete 13-system review of systems obtained. Pertinent positives and/or negatives as in body of history above, otherwise they are noncontributory. PHYSICAL EXAMINATION: VITAL SIGNS: At presentation in the Emergency Room, he was afebrile, temperature was 98 degrees Fahrenheit, pulse was 45, respiratory rate was 16, blood pressure 107/98, oxygen sats were 98%, inspired oxygen concentration was not recorded. At the time I saw him, his pulse was 60 and paced. GENERAL: He is a well built -Wallisian male. Normocephalic, atraumatic, talking to me in full sentences. He is in no overt respiratory distress. HEAD, EYES, EARS, NOSE AND THROAT: He is anicteric. No conjunctival erythema. Oropharynx is Mallampati #2. Oropharynx is moist. NECK: No gross jugular venous distention, no thyromegaly. Grossly, no palpable lymph nodes in the supraclavicular or submandibular lymph node chains. LUNGS: Auscultation of both lung parsons unremarkable. Lungs are clear bilaterally. HEART: Heart sounds 1 and 2 are heard at the time of my evaluation, regular rate and rhythm. He did have systolic murmur, no rubs. ABDOMEN: Soft, full, bowel sounds are positive, nontender. No palpable hepatosplenomegaly. Dorsalis pedis pulses were palpable bilaterally. EXTREMITIES: Also without overt digital clubbing, cyanosis, or pedal edema. NEUROLOGIC: Pupils are equal, round, about 4 mm, reactive to light. Extraocular muscle movements were intact. He moved all 4 extremities spontaneously. He had a left upper extremity AV graft. His mood was appropriate. His affect was normal. His judgment was a little bit off. I should say his insight as to his severity of his medical condition. LABORATORY AND DIAGNOSTIC DATA: From my review are as follows: Admission white cell count 5300, hemoglobin 12.9, hematocrit 38.4, platelet count 149. Serum sodium was 139, potassium was 3.7, chloride was 94, bicarbonate was 30, BUN was 9, creatinine was 3.4 and glucose was 104. Troponin was up at 0.076. Otherwise, cardiac enzymes within normal limits. LDL cholesterol was 58. TSH was within normal limits. Free T4 was slightly elevated at 1.47. No microbiology studies for my review. A chest x-ray was done. I have reviewed the chest x-ray and I have also reviewed the radiologist's interpretation. He does have left lower lobe infiltrate/small effusion, which is probably accentuated by the rotation of the film towards the left. He does have increased interstitial markings bilaterally, mostly in a chronic looking pattern, but obviously, I believe some element of interstitial edema is also present. Borderline cardiomegaly, no gross pneumothorax, no gross bony fractures. A 12-lead EKG was reviewed. It showed third degree AV block with a ventricular escape rate of 41. ASSESSMENT: 1. Third degree AV block. 2. Symptomatic bradycardia. 3. End-stage renal disease, on dialysis. 4. Gastroesophageal reflux disease. 5. Tobacco use disorder. 6. Elevated serum troponins. PLAN: He is status post temporary transvenous post-pacemaker. He will be observed in the intensive care unit until a permanent pacemaker can be placed. I will defer otherwise to Cardiology. Coronary artery disease evaluation will also be deferred to Cardiology. We will keep an eye on his serum potassium. However, he did not have any significant hyperkalemia. He will be continued on dialysis Friday, Friday, Friday per the cardiopulmonary physical therapist prescription. He will be placed on GI prophylaxis as well as DVT prophylaxis. Tobacco abstinence has been strongly counseled. Flu and pneumonia vaccination will also be addressed per protocol. Thank you very much for the consult Dr. Miguel. We will follow along. We will make further recommendations as picture progresses/becomes clearer. I should mention liver function test will also be ordered and supplemental oxygen will be continued to keep O2 sats greater than or equal to about 90%. He is currently on 2 L on about 97% O2 sats. He will be again observed in the intensive care unit. He certainly is critically ill at risk of decompensation including . At this time, I spent about 30-35 minutes of critical care time without overlap and excluding any procedural time that may be necessary. JOB# [id number] OLAMIDE/KAMINI
[2017-10-26] MEDS: PEPCID PO SCH (10:30)
--- NOTE | 2017-10-26 11:00 | Progress Note ---
Assessment and Plan Assessment and plan: 62 YO Male with ESRD on HD (M,W,F), GERD, Nicotine Dependence presents to ED for evaluation. Pt was in his usual state of health and went to his scheduled dialysis session. Pt was found to have bradycardia with heart rate of 41. EMS notified, and upon arrival the patient was found to have symptomatic bradycardia. Pt transported to [facility] for further care and evaluation. Pt seen and evaluated in ED and found to have heart block. Cardiology consulted in ED and patient taken urgently to Wrapping Machine Tender for intervention. Pt denies fever, chills, CP , Palpitations, NVD, Syncope, headache, Seizure, BRBPR, Unintentional weight loss, night sweats, skin rash, or recent ill contacts. Pt admitted to ICU. Complete heart block Nicotine dependence Hypotension End-stage renal disease GERD Hypokalemia Small right-sided pleural effusion Abdominal hernia Plan * Continue supportive care and intensive care unit * Nephrology and cardiology input noted in addition to budget controller * Expect potassium correction with dialysis. * Close monitoring of blood pressure. Hold any blood pressure medications. * 15 minutes of smoking cessation counseling provided * Continues on temporary pacemaker permanent pacemaker insertion planned for early next week * DVT and GI prophylaxis * Plan of care discussed with the patient detail patient verbalized understanding The high probability of a clinically significant, sudden or life threatening deterioration of the [cardiac] system(s) required my full and direct attention, intervention and personal management. The aggregate critical care time was [45] minutes. This time is in addition to time spent performing reported procedures but includes the following: [x] Data Review and interpretation [x] Patient assessment and monitoring of vital signs [x] Documentation [x] Medication orders and management History Interval history: Patient is seen today for: Complete heart block Seen and examined at bedside; 24hour events reviewed; nursing staff ; no adverse overnight events reported to me; Denies any chest pain, nausea, vomiting , diarrhea. Continues on external pacemaker No fever noted blood pressure controlled Hospitalist Physical - Physical exam Narrative exam: VITAL SIGNS: Reviewed. GENERAL: The patient appeared well nourished and normally developed. Vital signs as documented. HEAD: No signs of head trauma. EYES: Pupils are equal. Extraocular motions intact. EARS: Hearing grossly intact. MOUTH: Oropharynx is normal. NECK: No adenopathy, no JVD. CHEST: Chest with clear breath sounds bilaterally. No wheezes, rales, or rhonchi. CARDIAC: Paced rhythm. S1 and S2, VASCULAR: No Edema. Peripheral pulses normal and equal in all extremities. ABDOMEN: Soft, without detectable tenderness. No sign of distention. No rebound or guarding, and no masses palpated. Bowel Sounds normal. MUSCULOSKELETAL: Good range of motion of all major joints. Extremities without clubbing, cyanosis or edema. NEUROLOGIC EXAM: Alert and oriented x 3. No focal sensory or strength deficits. Speech normal. Follows commands. PSYCHIATRIC: Mood normal. SKIN: Temporary pacemaker via right IJ - Constitutional Vitals: Temp Pulse Resp BP Pulse Ox 98.1 F 60 21 93/49 100 10/26/17 08:00 10/26/17 08:00 10/26/17 08:00 10/26/17 08:00 10/26/17 08:00 General appearance: Present: mild distress Results - Labs CBC & Chem 7: 10/24/17 16:07 10/25/17 11:30 Labs: Laboratory Last Values WBC 5.3 K/mm3 (4.5-11.0) 10/24/17 16:07 RBC 4.31 M/mm3 (3.65-5.03) 10/24/17 16:07 Hgb 12.9 gm/dl (11.8-15.2) 10/24/17 16:07 Hct 38.4 % (35.5-45.6) 10/24/17 16:07 MCV 89 fl (84-94) 10/24/17 16:07 MCH 30 pg (28-32) 10/24/17 16:07 MCHC 34 % (32-34) 10/24/17 16:07 RDW 18.0 % (13.2-15.2) H 10/24/17 16:07 Plt Count 149 K/mm3 (140-440) 10/24/17 16:07 Lymph % (Auto) 28.1 % (13.4-35.0) 10/24/17 16:07 [place] % (Auto) 15.9 % (0.0-7.3) H 10/24/17 16:07 Eos % (Auto) 3.7 % (0.0-4.3) 10/24/17 16:07 Baso % (Auto) 1.0 % (0.0-1.8) 10/24/17 16:07 Lymph # 1.5 K/mm3 (1.2-5.4) 10/24/17 16:07 [place] # 0.8 K/mm3 (0.0-0.8) 10/24/17 16:07 Eos # 0.2 K/mm3 (0.0-0.4) 10/24/17 16:07 Baso # 0.1 K/mm3 (0.0-0.1) 10/24/17 16:07 Seg Neutrophils % 51.3 % (40.0-70.0) 10/24/17 16:07 Seg Neutrophils # 2.7 K/mm3 (1.8-7.7) 10/24/17 16:07 Sodium 138 mmol/L (137-145) 10/25/17 11:30 Potassium 3.4 mmol/L (3.6-5.0) L 10/25/17 11:30 Chloride 94.3 mmol/L (98-107) L 10/25/17 11:30 Carbon Dioxide 31 mmol/L (22-30) H 10/25/17 11:30 Anion Gap 16 mmol/L 10/25/17 11:30 BUN 17 mg/dL (9-20) 10/25/17 11:30 Creatinine 4.5 mg/dL (0.8-1.5) H 10/25/17 11:30 Estimated GFR 16 ml/min 10/25/17 11:30 BUN/Creatinine Ratio 4 % 10/25/17 11:30 Glucose 128 mg/dL (75-100) H 10/25/17 11:30 POC Glucose 283 (70-105) H 10/26/17 09:54 Calcium 9.2 mg/dL (8.4-10.2) 10/25/17 11:30 Magnesium 2.20 mg/dL (1.7-2.3) 10/24/17 16:50 Total Bilirubin 0.60 mg/dL (0.1-1.2) 10/25/17 12:00 Direct Bilirubin < 0.2 mg/dL (0-0.2) 10/25/17 12:00 AST 14 units/L (5-40) 10/25/17 12:00 ALT 8 units/L (7-56) 10/25/17 12:00 Alkaline Phosphatase 176 units/L (35-129) H 10/25/17 12:00 Troponin T 0.087 ng/mL (0.00-0.029) H 10/24/17 21:38 Total Protein 7.0 g/dL (6.3-8.2) 10/25/17 12:00 Albumin 3.4 g/dL (3.9-5) L 10/25/17 12:00 Albumin/Globulin Ratio 0.9 % 10/25/17 12:00 Triglycerides 124 mg/dL (2-149) 10/24/17 16:07 Cholesterol 126 mg/dL (50-199) 10/24/17 16:07 LDL Cholesterol Direct 58 mg/dL (50-130) 10/24/17 16:07 HDL Cholesterol 57 mg/dL (40-59) 10/24/17 16:07 Cholesterol/HDL Ratio 2.21 % 10/24/17 16:07 TSH 1.300 mlU/mL (0.270-4.200) 10/24/17 16:50 Free T4 1.47 ng/dL (0.76-1.46) H 10/24/17 16:50 Hepatitis A IgM Ab Non-reactive (NonReactive) 10/25/17 12:00 Hep Bs Antigen Non-reactive (Negative) 10/25/17 12:00 Hep B Core IgM Ab Non-reactive (NonReactive) 10/25/17 12:00 Hepatitis C Antibody Non-reactive (NonReactive) 10/25/17 12:00
--- NOTE | 2017-10-26 11:01 | Progress Note ---
Assessment and Plan ESRD on Hemodialysis: Hypokalemia: -MWF OP via LUE AVF -s/p HD yesterday, no HD today. Will eval for HD need daily -Check BMP, Mg, Phos daily -Replace K Third Degree AV block: -Cards on board -s/p Transvenous pacer per Cards -Pacemaker placement per Cards -Remains in ICU. Hyperphosphatemia: -Can continue home Phos binder GERD: -On PPI Nicotine dependance: -Per primary Beto Stallworth [phone] Subjective Date of service: 10/26/17 Principal diagnosis: Symptomatic Bradycardia; 3rd degree heart block; ESRD on Dialysis Interval history: Tolerated HD yesterday. Remains in ICU. Objective - Exam Narrative Exam: GE:AAOX3 HEENT:PERRLA Chest:CTAB CVS:Paced Abd:Soft/ND/BS+ Ext: No cce, LUE AVF Psyche:Appropriate mood - Vital Signs Vital signs: Vital Signs - 12hr 10/25/17 10/26/17 10/26/17 23:22 00:00 01:00 Temperature 98.7 F Pulse Rate 60 60 60 Pulse Rate [ 60 From Monitor] Respiratory 20 18 14 Rate Blood Pressure 97/63 94/58 101/63 O2 Sat by Pulse 97 99 98 Oximetry 10/26/17 10/26/17 10/26/17 02:00 03:00 04:00 Temperature 97.6 F Pulse Rate 60 60 60 Pulse Rate [ 60 From Monitor] Respiratory 13 13 17 Rate Blood Pressure 98/61 108/63 94/63 O2 Sat by Pulse 95 99 100 Oximetry 10/26/17 10/26/17 10/26/17 05:00 06:00 07:00 Temperature Pulse Rate 60 60 60 Pulse Rate [ From Monitor] Respiratory 15 15 15 Rate Blood Pressure 97/60 90/53 93/49 O2 Sat by Pulse 95 94 Oximetry 10/26/17 08:00 Temperature 98.1 F Pulse Rate 60 Pulse Rate [ From Monitor] Respiratory 21 Rate Blood Pressure 93/49 O2 Sat by Pulse 100 Oximetry - Lab 10/24/17 16:07 10/25/17 11:30 Most recent lab results Calcium 9.2 mg/dL (8.4-10.2) 10/25/17 11:30 Magnesium 2.20 mg/dL (1.7-2.3) 10/24/17 16:50
--- NOTE | 2017-10-26 11:18 | Progress Note ---
Assessment and Plan - Patient Problems (1) SSS (sick sinus syndrome) Current Visit: Yes Status: Acute (2) ESRD (end stage renal disease) on dialysis Current Visit: Yes Status: Acute (3) Mitral stenosis Current Visit: Yes Status: Acute Subjective Date of service: 10/26/17 Principal diagnosis: Symptomatic Bradycardia; 3rd degree heart block; ESRD on Dialysis Interval history: NO C\O Objective Vital Signs Temp Pulse Pulse Resp BP Pulse Ox 10/26/17 08:00 98.1 F 60 21 93/49 100 10/26/17 07:00 60 15 93/49 94 10/26/17 06:00 60 15 90/53 95 10/26/17 05:00 60 15 97/60 10/26/17 04:00 97.6 F 60 60 17 94/63 100 10/26/17 03:00 60 13 108/63 99 10/26/17 02:00 60 13 98/61 95 10/26/17 01:00 60 14 101/63 98 10/26/17 00:00 98.7 F 60 60 18 94/58 99 10/25/17 23:22 60 20 97/63 97 10/25/17 23:00 60 14 97/63 95 10/25/17 22:00 60 14 82/50 96 10/25/17 21:00 60 11 L 86/52 99 10/25/17 20:00 98.0 F 60 20 96/57 99 10/25/17 19:05 60 20 99 10/25/17 19:00 60 13 85/51 97 10/25/17 18:00 60 16 86/48 99 10/25/17 17:00 60 20 86/48 10/25/17 16:00 97.6 F 60 11 L 99 10/25/17 15:00 61 12 93/55 73 L 10/25/17 14:15 97.8 F 60 11 L 93/50 10/25/17 14:00 60 9 L 81/49 99 10/25/17 13:45 60 94/70 10/25/17 13:30 60 103/64 10/25/17 13:15 60 102/57 10/25/17 13:00 60 11 L 106/64 100 10/25/17 12:45 60 94/66 10/25/17 12:30 60 115/73 10/25/17 12:15 60 109/71 10/25/17 12:00 97.8 F 60 12 108/70 100 10/25/17 11:45 60 98/67 10/25/17 11:30 60 112/68 - Physical Examination General: No Apparent Distress HEENT: Positive: PERRL Neck: Positive: neck supple Cardiac: Positive: Reg Rate and Rhythm Lungs: Positive: clear to auscultation Neuro: Positive: Grossly Intact Abdomen: Positive: Other (HERNIA) Extremities: Absent: edema (NO) - Labs and Meds Cardiac Enzymes 10/25/17 Range/Units 12:00 AST 14 (5-40) units/L Comprehensive Metabolic Panel 10/25/17 10/25/17 Range/Units 11:30 12:00 Sodium 138 (137-145) mmol/L Potassium 3.4 L (3.6-5.0) mmol/L Chloride 94.3 L (98-107) mmol/L Carbon Dioxide 31 H (22-30) mmol/L BUN 17 (9-20) mg/dL Creatinine 4.5 H (0.8-1.5) mg/dL Glucose 128 H (75-100) mg/dL Calcium 9.2 (8.4-10.2) mg/dL Direct Bilirubin < 0.2 (0-0.2) mg/dL AST 14 (5-40) units/L ALT 8 (7-56) units/L Alkaline Phosphatase 176 H (35-129) units/L Total Protein 7.0 (6.3-8.2) g/dL Albumin 3.4 L (3.9-5) g/dL
[2017-10-26] MEDS ORDERED: K-DUR PO ONE (15:00)
--- NOTE | 2017-10-26 15:53 | Progress Note ---
Assessment and Plan Symptomatic Bradycardia 3rd degree heart block ESRD on Dialysis Tobacco Use Disorder GERD Small right-sided pleural effusion Abdominal hernia - continue temporary PCM - tentatively for PPM tomorrow - follow electrolytes - HD/UF per nephrology prescription - continue GI & VTE prophylaxis - smoking cessation counselling > 15 mins provided this admission - continue other care per attending / other consultants - care plan discussed at length with patient in room ... continue to watch in ICU ....re-evaluate in am & prn ... 35' Subjective Date of service: 10/26/17 Principal diagnosis: Symptomatic Bradycardia; Complete heart block; ESRD on Dialysis Interval history: Patient is seen today for: Symptomatic Bradycardia; Complete heart block; ESRD on Dialysis Seen and examined at bedside; 24hour events reviewed; nursing and respiratory care staff consulted; no adverse overnight events reported to me; resting peacefully in bed; denies acute chest pains or increased SOB; remains intermittently paced; awaiting PPM tentatively for tomorrow Objective Vital Signs - 12hr 10/26/17 10/26/17 10/26/17 04:00 05:00 06:00 Temperature 97.6 F Pulse Rate 60 60 60 Pulse Rate [ 60 From Monitor] Respiratory 17 15 15 Rate Blood Pressure 94/63 97/60 90/53 O2 Sat by Pulse 100 95 Oximetry 10/26/17 10/26/17 10/26/17 07:00 08:00 09:00 Temperature 98.1 F Pulse Rate 60 60 60 Pulse Rate [ From Monitor] Respiratory 15 21 17 Rate Blood Pressure 93/49 93/49 81/44 O2 Sat by Pulse 94 100 98 Oximetry 10/26/17 10/26/17 10/26/17 10:00 11:00 12:00 Temperature 97.6 F Pulse Rate 60 60 69 Pulse Rate [ From Monitor] Respiratory 19 18 17 Rate Blood Pressure 83/51 90/62 95/51 O2 Sat by Pulse 99 100 Oximetry 10/26/17 10/26/17 10/26/17 13:00 14:00 15:00 Temperature Pulse Rate 69 69 69 Pulse Rate [ From Monitor] Respiratory 14 18 15 Rate Blood Pressure 89/58 89/58 114/67 O2 Sat by Pulse 97 Oximetry Constitutional: no acute distress, alert Eyes: non-icteric ENT: oropharynx moist, other (mallampatti 2 ) Neck: supple, no lymphadenopathy, no JVD, other (no thyromegaly) Effort: mildly labored Ascultation: Bilateral: diminished breath sounds, rhonchi Percussion: Bilateral: not dull Cardiovascular: regular rate and rhythm, other (no R/M) Gastrointestinal: normoactive bowel sounds, soft, non-tender, non-distended, other (no palpable HSM) Integumentary: normal Extremities: no cyanosis, no edema, pulses normal, no ischemia or petechiae Neurologic: normal mental status, non-focal exam, pupils equal and round, motor strength normal and Psychiatric: mood appropriate, affect normal CBC and BMP: 10/24/17 16:07 10/25/17 11:30 Abnormal lab findings: Abnormal Labs 10/24/17 10/24/17 10/24/17 16:07 16:07 16:50 RDW 18.0 H [place] % (Auto) 15.9 H Potassium Chloride 93.8 L Carbon Dioxide Creatinine 3.4 H Glucose 104 H POC Glucose Alkaline Phosphatase Troponin T 0.081 H Albumin Free T4 1.47 H 10/24/17 10/24/17 10/25/17 19:51 21:38 00:35 RDW [place] % (Auto) Potassium Chloride Carbon Dioxide Creatinine Glucose POC Glucose 240 H Alkaline Phosphatase Troponin T 0.076 H 0.087 H Albumin Free T4 10/25/17 10/25/17 10/25/17 04:45 08:21 11:30 RDW [place] % (Auto) Potassium 3.4 L Chloride 94.3 L Carbon Dioxide 31 H Creatinine 4.5 H Glucose 128 H POC Glucose 135 H 116 H Alkaline Phosphatase Troponin T Albumin Free T4 10/25/17 10/25/17 10/25/17 11:53 12:00 15:55 RDW [place] % (Auto) Potassium Chloride Carbon Dioxide Creatinine Glucose POC Glucose 117 H 187 H Alkaline Phosphatase 176 H Troponin T Albumin 3.4 L Free T4 10/25/17 10/26/17 10/26/17 21:40 02:13 05:32 RDW [place] % (Auto) Potassium Chloride Carbon Dioxide Creatinine Glucose POC Glucose 241 H 183 H 143 H Alkaline Phosphatase Troponin T Albumin Free T4 10/26/17 10/26/17 09:54 14:34 RDW [place] % (Auto) Potassium Chloride Carbon Dioxide Creatinine Glucose POC Glucose 283 H 197 H Alkaline Phosphatase Troponin T Albumin Free T4 Allied health notes reviewed: nursing
[2017-10-26] MEDS: K-DUR PO SCH (20:25)
[2017-10-27 03:47] LABS: Calcium 9.6 mg/dL (8.4-10.2)
[2017-10-27] MEDS ORDERED: NACL 0.9% 1,000 ML, VANCOMYCIN VIAL 1,000 MG IR ONE (07:15)
[2017-10-27 07:31] LABS: INR 0.94 (0.87-1.13)
--- NOTE | 2017-10-27 07:32 | Anesthesia Day of Surgery ---
Anesthesia Day of Surgery - Day of Surgery Patient Examined: Yes Patient H&P Reviewed: Yes Patient is NPO: Yes
--- NOTE | 2017-10-27 07:32 | Anesthesia Consultation ---
Anesthesia Consult and Med Hx Date of service: 10/27/17 - Airway Anesthetic Teeth Evaluation: Poor (multiple missing teeth) ROM Head & Neck: Adequate Mental/Hyoid Distance: Adequate Mallampati Class: Class II Intubation Access Assessment: Probably Good - Pre-Operative Health Status ASA Pre-Surgery Classification: ASA3 Proposed Anesthetic Plan: MAC - Pulmonary Hx Smoking: Yes Hx Asthma: No COPD: No Hx Pneumonia: No - Cardiovascular System Hx Hypertension: No Hx Heart Attack/AMI: No Hx Cardia Arrhythmia: Yes (AV block III degree) Hx Pacemaker: Yes (external pacer is in place) - Central Nervous System CVA: Yes (1997 no residual issues) Hx Psychiatric Problems: No - Endocrine Hx Renal Disease: Yes (dialysis M, W, F) Hx End Stage Renal Disease: Yes - Hematic Hx Anemia: Yes - Other Systems Hx Cancer: No
[2017-10-27] MEDS ORDERED: DIPRIVAN 10 MG/ML IV ONE ×3 (07:52)
[2017-10-27] MEDS ORDERED: VERSED ONE (07:52)
[2017-10-27] MEDS ORDERED: DILAUDID ONE (07:52)
[2017-10-27] MEDS ORDERED: KETALAR ONE (07:54)
[2017-10-27] MEDS ORDERED: XYLOCAINE 1% 20 mL ONE (08:02)
[2017-10-27] MEDS ORDERED: MARCAINE 0.5% 60 ML INFILTRATI ONE (08:03)
[2017-10-27] MEDS ORDERED: NACL 0.9% 1000 ML 1,000 ML ONE ×2 (08:05→09:08)
[2017-10-27] MEDS ORDERED: NACL 0.9% 500 ML 500 ML ONE (08:21)
[2017-10-27] MEDS: ANCEF/STERILE WATER 2 GM/20 ML 2 GM/20 ML SYRINGE IV ONE ×2 (08:30→08:38)
[2017-10-27] MEDS: NACL 0.9% 500 ML IR ONE ×2 (08:40→08:45)
[2017-10-27] MEDS ORDERED: VANCOMYCIN VIAL 1,000 MG in NACL 0.9% 1,000 ML IRRIGATION ONE (09:24)
--- NOTE | 2017-10-27 10:00 | Event Note ---
Date: 10/27/17 Patient underwent dual chamber permanent pacemaker implant in right chest due to complete heart block without apparent complications. Temporary trans-venous pacemaker was removed. Recommend: 1. Check chest Xray. 2. Avoid heparin with next dialysis treatment 3. Pacemaker interrogation tomorrow morning 4. Prescribe short course of pain medications at time of discharge. 5. Further outpatient evaluation with General Cardiology for moderate mitral and aortic valve stenosis as outpatient. Nasir Arreola MD
--- NOTE | 2017-10-27 10:29 | Progress Note ---
Assessment and Plan Symptomatic Bradycardia 3rd degree heart block ESRD on Dialysis Tobacco Use Disorder GERD Small right-sided pleural effusion Abdominal hernia - continue supplemental oxygen to keep O2 Sats > 90% - s/p permanent pacemaker - follow electrolytes - continue HD/UF per nephrology prescription - continue GI & VTE prophylaxis - smoking cessation counselling > 15 mins provided - continue other care per attending / other consultants - transfer to telemetry when ok with cardiology ....re-evaluate in am & prn ... 25' Subjective Date of service: 10/27/17 Principal diagnosis: Symptomatic Bradycardia; Complete heart block; ESRD on Dialysis Interval history: Patient is seen today for: Symptomatic Bradycardia; Complete heart block; ESRD on Dialysis Seen and examined at bedside; 24hour events reviewed; nursing and respiratory care staff consulted; no adverse overnight events reported to me; resting peacefully in bed; s/p PPM this am; resting peacefully in bed; denies acute chest pains or increased SOB; No hemoptysis; weaning off oxygen therapy slowly Objective Vital Signs - 12hr 10/26/17 10/26/17 10/27/17 22:52 23:00 00:00 Temperature 98.7 F Pulse Rate 69 69 69 Pulse Rate [ From Monitor] Pulse Rate [ None] Respiratory 19 13 18 Rate Blood Pressure 114/71 109/86 112/66 O2 Sat by Pulse 95 100 99 Oximetry 10/27/17 10/27/17 10/27/17 00:10 01:00 02:00 Temperature Pulse Rate 69 69 Pulse Rate [ 66 From Monitor] Pulse Rate [ None] Respiratory 16 11 L 13 Rate Blood Pressure 112/66 112/66 O2 Sat by Pulse 99 99 100 Oximetry 10/27/17 10/27/17 10/27/17 03:00 04:00 04:20 Temperature 98.7 F Pulse Rate 69 69 Pulse Rate [ 66 From Monitor] Pulse Rate [ None] Respiratory 14 18 16 Rate Blood Pressure 112/66 112/66 O2 Sat by Pulse 100 100 99 Oximetry 10/27/17 10/27/17 10/27/17 05:00 06:00 07:22 Temperature 97.5 F L Pulse Rate 69 69 Pulse Rate [ From Monitor] Pulse Rate [ 70 None] Respiratory 15 15 16 Rate Blood Pressure 82/44 92/66 111/72 O2 Sat by Pulse 100 93 100 Oximetry Constitutional: no acute distress, alert Eyes: non-icteric ENT: oropharynx moist, other (mallampatti 2 ) Neck: supple, no lymphadenopathy, no JVD, other (no thyromegaly) Effort: mildly labored Ascultation: Bilateral: diminished breath sounds, rhonchi Percussion: Bilateral: not dull Cardiovascular: regular rate and rhythm, other (no R/M) Gastrointestinal: normoactive bowel sounds, soft, non-tender, non-distended, other (no palpable HSM) Integumentary: normal Extremities: no cyanosis, no edema, pulses normal, no ischemia or petechiae Neurologic: normal mental status, non-focal exam, pupils equal and round, motor strength normal and Psychiatric: mood appropriate, affect normal CBC and BMP: 10/24/17 16:07 10/27/17 03:10 ABG, PT/INR, D-dimer: PT/INR, D-dimer PT 13.0 Sec. (12.2-14.9) 10/27/17 06:57 INR 0.94 (0.87-1.13) 10/27/17 06:57 Abnormal lab findings: Abnormal Labs 10/24/17 10/24/17 10/24/17 16:07 16:07 16:50 RDW 18.0 H [place] % (Auto) 15.9 H Potassium Chloride 93.8 L Carbon Dioxide BUN Creatinine 3.4 H Glucose 104 H POC Glucose Alkaline Phosphatase Troponin T 0.081 H Albumin Free T4 1.47 H 10/24/17 10/24/17 10/25/17 19:51 21:38 00:35 RDW [place] % (Auto) Potassium Chloride Carbon Dioxide BUN Creatinine Glucose POC Glucose 240 H Alkaline Phosphatase Troponin T 0.076 H 0.087 H Albumin Free T4 10/25/17 10/25/17 10/25/17 04:45 08:21 11:30 RDW [place] % (Auto) Potassium 3.4 L Chloride 94.3 L Carbon Dioxide 31 H BUN Creatinine 4.5 H Glucose 128 H POC Glucose 135 H 116 H Alkaline Phosphatase Troponin T Albumin Free T4 10/25/17 10/25/17 10/25/17 11:53 12:00 15:55 RDW [place] % (Auto) Potassium Chloride Carbon Dioxide BUN Creatinine Glucose POC Glucose 117 H 187 H Alkaline Phosphatase 176 H Troponin T Albumin 3.4 L Free T4 10/25/17 10/26/17 10/26/17 21:40 02:13 05:32 RDW [place] % (Auto) Potassium Chloride Carbon Dioxide BUN Creatinine Glucose POC Glucose 241 H 183 H 143 H Alkaline Phosphatase Troponin T Albumin Free T4 10/26/17 10/26/17 10/26/17 09:54 14:34 18:12 RDW [place] % (Auto) Potassium Chloride Carbon Dioxide BUN Creatinine Glucose POC Glucose 283 H 197 H 211 H Alkaline Phosphatase Troponin T Albumin Free T4 10/26/17 10/27/17 10/27/17 21:59 02:01 03:10 RDW [place] % (Auto) Potassium Chloride 93.6 L Carbon Dioxide BUN 37 H Creatinine 6.7 H Glucose 157 H POC Glucose 175 H 195 H Alkaline Phosphatase Troponin T Albumin Free T4 10/27/17 05:34 RDW [place] % (Auto) Potassium Chloride Carbon Dioxide BUN Creatinine Glucose POC Glucose 154 H Alkaline Phosphatase Troponin T Albumin Free T4 Chest x-ray: image reviewed (new right upper chest wall PPM leads in good position; Rll indfiltrate & small effusion) Allied health notes reviewed: nursing
--- NOTE | 2017-10-27 10:43 | Progress Note ---
Assessment and Plan Assessment and plan: 62 YO Male with ESRD on HD (M,W,F), GERD, Nicotine Dependence presents to ED for evaluation. Pt was in his usual state of health and went to his scheduled dialysis session. Pt was found to have bradycardia with heart rate of 41. EMS notified, and upon arrival the patient was found to have symptomatic bradycardia. Pt transported to [facility] for further care and evaluation. Pt seen and evaluated in ED and found to have heart block. Cardiology consulted in ED and patient taken urgently to [facility] for intervention. Pt denies fever, chills, CP , Palpitations, NVD, Syncope, headache, Seizure, BRBPR, Unintentional weight loss, night sweats, skin rash, or recent ill contacts. Pt admitted to ICU. Complete heart block Nicotine dependence Hypotension End-stage renal disease GERD Hypokalemia Small right-sided pleural effusion Abdominal hernia Plan * Continue supportive care and transfer to tele * Nephrology and cardiology input noted in addition to sheet roller operator * Expect potassium correction with dialysis. * Close monitoring of blood pressure. Hold any blood pressure medications. * 15 minutes of smoking cessation counseling provided * Continues on temporary pacemaker permanent pacemaker insertion planned for early next week * DVT and GI prophylaxis * Plan of care discussed with the patient detail patient verbalized understanding * Discharge in am History Interval history: Patient is seen today for: Complete heart block Seen and examined at bedside; 24hour events reviewed; nursing staff ; no adverse overnight events reported to me; Denies any chest pain, nausea, vomiting , diarrhea. s/p permanent pacemaker. No fever noted blood pressure controlled Hospitalist Physical - Physical exam Narrative exam: VITAL SIGNS: Reviewed. GENERAL: The patient appeared well nourished and normally developed. Vital signs as documented. HEAD: No signs of head trauma. EYES: Pupils are equal. Extraocular motions intact. EARS: Hearing grossly intact. MOUTH: Oropharynx is normal. NECK: No adenopathy, no JVD. CHEST: Chest with clear breath sounds bilaterally. No wheezes, rales, or rhonchi. CARDIAC: Paced rhythm. S1 and S2, VASCULAR: No Edema. Peripheral pulses normal and equal in all extremities. ABDOMEN: Soft, without detectable tenderness. No sign of distention. No rebound or guarding, and no masses palpated. Bowel Sounds normal. MUSCULOSKELETAL: Good range of motion of all major joints. Extremities without clubbing, cyanosis or edema. NEUROLOGIC EXAM: Alert and oriented x 3. No focal sensory or strength deficits. Speech normal. Follows commands. PSYCHIATRIC: Mood normal. SKIN: Temporary pacemaker via right IJ - Constitutional Vitals: Temp Pulse Resp BP Pulse Ox 97.5 F L 70 16 111/72 100 10/27/17 07:22 10/27/17 07:22 10/27/17 07:22 10/27/17 07:22 10/27/17 07:22 General appearance: Present: mild distress Results - Labs CBC & Chem 7: 10/24/17 16:07 10/27/17 03:10 Labs: Laboratory Last Values WBC 5.3 K/mm3 (4.5-11.0) 10/24/17 16:07 RBC 4.31 M/mm3 (3.65-5.03) 10/24/17 16:07 Hgb 12.9 gm/dl (11.8-15.2) 10/24/17 16:07 Hct 38.4 % (35.5-45.6) 10/24/17 16:07 MCV 89 fl (84-94) 10/24/17 16:07 MCH 30 pg (28-32) 10/24/17 16:07 MCHC 34 % (32-34) 10/24/17 16:07 RDW 18.0 % (13.2-15.2) H 10/24/17 16:07 Plt Count 149 K/mm3 (140-440) 10/24/17 16:07 Lymph % (Auto) 28.1 % (13.4-35.0) 10/24/17 16:07 [place] % (Auto) 15.9 % (0.0-7.3) H 10/24/17 16:07 Eos % (Auto) 3.7 % (0.0-4.3) 10/24/17 16:07 Baso % (Auto) 1.0 % (0.0-1.8) 10/24/17 16:07 Lymph # 1.5 K/mm3 (1.2-5.4) 10/24/17 16:07 [place] # 0.8 K/mm3 (0.0-0.8) 10/24/17 16:07 Eos # 0.2 K/mm3 (0.0-0.4) 10/24/17 16:07 Baso # 0.1 K/mm3 (0.0-0.1) 10/24/17 16:07 Seg Neutrophils % 51.3 % (40.0-70.0) 10/24/17 16:07 Seg Neutrophils # 2.7 K/mm3 (1.8-7.7) 10/24/17 16:07 PT 13.0 Sec. (12.2-14.9) 10/27/17 06:57 INR 0.94 (0.87-1.13) 10/27/17 06:57 Sodium 137 mmol/L (137-145) 10/27/17 03:10 Potassium 4.4 mmol/L (3.6-5.0) D 10/27/17 03:10 Chloride 93.6 mmol/L (98-107) L 10/27/17 03:10 Carbon Dioxide 27 mmol/L (22-30) 10/27/17 03:10 Anion Gap 21 mmol/L 10/27/17 03:10 BUN 37 mg/dL (9-20) H 10/27/17 03:10 Creatinine 6.7 mg/dL (0.8-1.5) H 10/27/17 03:10 Estimated GFR 10 ml/min 10/27/17 03:10 BUN/Creatinine Ratio 6 % 10/27/17 03:10 Glucose 157 mg/dL (75-100) H 10/27/17 03:10 POC Glucose 154 (70-105) H 10/27/17 05:34 Calcium 9.6 mg/dL (8.4-10.2) 10/27/17 03:10 Magnesium 2.20 mg/dL (1.7-2.3) 10/24/17 16:50 Total Bilirubin 0.60 mg/dL (0.1-1.2) 10/25/17 12:00 Direct Bilirubin < 0.2 mg/dL (0-0.2) 10/25/17 12:00 AST 14 units/L (5-40) 10/25/17 12:00 ALT 8 units/L (7-56) 10/25/17 12:00 Alkaline Phosphatase 176 units/L (35-129) H 10/25/17 12:00 Troponin T 0.087 ng/mL (0.00-0.029) H 10/24/17 21:38 Total Protein 7.0 g/dL (6.3-8.2) 10/25/17 12:00 Albumin 3.4 g/dL (3.9-5) L 10/25/17 12:00 Albumin/Globulin Ratio 0.9 % 10/25/17 12:00 Triglycerides 124 mg/dL (2-149) 10/24/17 16:07 Cholesterol 126 mg/dL (50-199) 10/24/17 16:07 LDL Cholesterol Direct 58 mg/dL (50-130) 10/24/17 16:07 HDL Cholesterol 57 mg/dL (40-59) 10/24/17 16:07 Cholesterol/HDL Ratio 2.21 % 10/24/17 16:07 TSH 1.300 mlU/mL (0.270-4.200) 10/24/17 16:50 Free T4 1.47 ng/dL (0.76-1.46) H 10/24/17 16:50 Hepatitis A IgM Ab Non-reactive (NonReactive) 10/25/17 12:00 Hep Bs Antigen Non-reactive (Negative) 10/25/17 12:00 Hep B Core IgM Ab Non-reactive (NonReactive) 10/25/17 12:00 Hepatitis C Antibody Non-reactive (NonReactive) 10/25/17 12:00
--- NOTE | 2017-10-27 11:42 | XRay Report ---
AP CHEST: HISTORY: Pacemaker postop A 2-lead pacemaker has been inserted since 10/24/17. No pneumothorax. Heart size is borderline and unchanged. Mild pulmonary venous congestion has resolved. The lungs are generally clear. There are chronic interstitial changes bilaterally but no evidence for pneumonia or pleural effusion. IMPRESSION: Pacemaker placement. No acute process noted.
--- NOTE | 2017-10-27 12:14 | Progress Note ---
Assessment and Plan ESRD on Hemodialysis: Hypokalemia: -HD today for clearance and volume removal - Will eval for HD need daily -Check BMP, Mg, Phos daily Third Degree AV block: -Cards on board -s/p Transvenous pacer per Cards -Pacemaker placement per Cards -Remains in ICU. Hyperphosphatemia: -continue home Phos binder GERD: -On PPI Nicotine dependance: -Per primary Subjective Date of service: 10/27/17 Principal diagnosis: Symptomatic Bradycardia; Complete heart block; ESRD on Dialysis Interval history: seen during HD, tolerating Objective - Vital Signs Vital signs: Vital Signs - 12hr 10/27/17 10/27/17 10/27/17 01:00 02:00 03:00 Temperature Pulse Rate 69 69 69 Pulse Rate [ From Monitor] Pulse Rate [ None] Respiratory 11 L 13 14 Rate Blood Pressure 112/66 112/66 112/66 O2 Sat by Pulse 99 100 100 Oximetry 10/27/17 10/27/17 10/27/17 04:00 04:20 05:00 Temperature 98.7 F Pulse Rate 69 69 Pulse Rate [ 66 From Monitor] Pulse Rate [ None] Respiratory 18 16 15 Rate Blood Pressure 112/66 82/44 O2 Sat by Pulse 100 99 100 Oximetry 10/27/17 10/27/17 10/27/17 06:00 07:22 10:20 Temperature 97.5 F L Pulse Rate 69 64 Pulse Rate [ From Monitor] Pulse Rate [ 70 None] Respiratory 15 16 Rate Blood Pressure 92/66 111/72 O2 Sat by Pulse 93 100 Oximetry 10/27/17 10/27/17 11:00 12:01 Temperature Pulse Rate 69 65 Pulse Rate [ From Monitor] Pulse Rate [ None] Respiratory 13 15 Rate Blood Pressure 139/86 119/71 O2 Sat by Pulse 100 100 Oximetry - General Appearance General appearance: well-developed, well-nourished EENT: ATNC, PERRL, mucous membranes moist Neck: no JVD, no carotid bruit Respiratory: Present: Clear to Ascultation. Absent: Rales, Ronchi Cardiology: regular, S1S2 Gastrointestinal: normoactive bowel sounds, no tenderness, no distended, no masses Integumentary: no rash, warm and dry Neurologic: no focal deficit, no asterixis, alert and oriented x3 Musculoskeletal: other (no edema in BLE) Psychiatric: cooperative - Lab 10/24/17 16:07 10/27/17 03:10 Most recent lab results Calcium 9.6 mg/dL (8.4-10.2) 10/27/17 03:10 Magnesium 2.20 mg/dL (1.7-2.3) 10/24/17 16:50
[2017-10-27] MEDS ORDERED: ceFAZolin 1 GM in NACL 0.9% 20 ML IV SCH (14:00)
--- NOTE | 2017-10-27 14:59 | Event Note ---
Date: 10/27/17 Patient is supposed permanent pacemaker implant for his symptomatic bradycardia and third-degree AV block. Echocardiogram shows significant valvular disease with moderate stenosis of both mitral and aortic valves, consistent with rheumatic valvular heart disease. Recommendations: Valvular disease is asymptomatic, but as outpatient he may need further evaluation with right and left heart catheterization in future, once his current pacemaker status is stable.
[2017-10-27] MEDS: PEPCID PO SCH (16:18)
[2017-10-27] MEDS: K-DUR PO SCH (16:18)
[2017-10-27] MEDS: NORCO 5/325 PO PRN ×2 (16:18→20:08)
[2017-10-27] MEDS: ceFAZolin 1 GM in NACL 0.9% 20 ML IV SCH (16:19)
[2017-10-27] MEDS ORDERED: PERCOCET 5/325 PO PRN (16:40)
[2017-10-27] MEDS: SODIUM CHLORIDE FLUSH SYRINGE 10 ML IV SCH (16:50)
--- NOTE | 2017-10-27 17:11 | Post Anesthesia Evaluation ---
- Post Anesthesia Evaluation Patient Participated: Yes Airway Patent: Yes Stable Respiratory Function: Yes Nausea/Vomiting: No Temp > 96.8F: Yes Pain Manageable: Yes Adequeate Hydration: Yes Anesthesia Complications: No Block Receding Appropriately: Not Applicable Patient on Ventilator: No
[2017-10-27] MEDS ORDERED: ANCEF/NS 1 GM/50 ML 1 GM/50 ML BAG IV SCH (22:00)
[2017-10-28 05:12] VITALS: BP 123/34
--- NOTE | 2017-10-28 09:53 | Progress Note ---
Assessment and Plan ESRD on Hemodialysis: Hypokalemia: - no indicationf or HD today - Will eval for HD need daily -Check BMP, Mg, Phos daily Third Degree AV block: -Cards on board -s/p Transvenous pacer per Cards -Pacemaker placement per Cards -Remains in ICU. Hyperphosphatemia: -continue home Phos binder GERD: -On PPI Nicotine dependance: -Per primary Subjective Date of service: 10/28/17 Principal diagnosis: Symptomatic Bradycardia; Complete heart block; ESRD on Dialysis Interval history: tolerated HD well yesterday Objective - Vital Signs Vital signs: Vital Signs - 12hr 10/27/17 10/28/17 23:23 04:55 Temperature 97.6 F Pulse Rate 91 H 75 Respiratory 16 Rate Blood Pressure 113/46 123/34 O2 Sat by Pulse 96 95 Oximetry - General Appearance General appearance: well-developed, well-nourished EENT: ATNC, PERRL, mucous membranes moist Neck: no JVD, no carotid bruit Respiratory: Present: Clear to Ascultation. Absent: Rales, Ronchi Cardiology: regular, S1S2 Gastrointestinal: normoactive bowel sounds, no tenderness, no distended, no masses, no obese Integumentary: no rash Neurologic: no focal deficit, no asterixis, alert and oriented x3 Musculoskeletal: other (no edema in BLE) Psychiatric: mood/affect appropriate, cooperative - Lab 10/24/17 16:07 10/27/17 03:10 Most recent lab results Calcium 9.6 mg/dL (8.4-10.2) 10/27/17 03:10 Magnesium 2.20 mg/dL (1.7-2.3) 10/24/17 16:50
[2017-10-28] MEDS: K-DUR PO SCH (10:13)
[2017-10-28] MEDS: PEPCID PO SCH (10:13)
[2017-10-28] MEDS: SODIUM CHLORIDE FLUSH SYRINGE 10 ML IV SCH (10:15)
[2017-10-28] MEDS: ceFAZolin 1 GM in NACL 0.9% 20 ML IV SCH (10:20)
--- NOTE | 2017-10-28 10:42 | Progress Note ---
Assessment and Plan Complete heart block s/p pacemaker insertion ESRD on dialysis Rheumatic valvular disease Echocardiogram shows significant valvular disease with moderate stenosis of both mitral and aortic valves, consistent with rheumatic valvular heart disease. Ejection fraction 55-60%. Recommendations: 1. Valvular disease is asymptomatic, but as outpatient he may need further evaluation with right and left heart catheterization in future, once his current pacemaker status is stable. 2. Prescribe short course of pain medications at time of discharge. 3. Patient advised to follow up with [facility] as scheduled November 04. Subjective Date of service: 10/28/17 Principal diagnosis: Symptomatic Bradycardia; Complete heart block; ESRD on Dialysis Interval history: Patient is status post pacemaker insertion on 10/27 which is functioning normally on interrogation today. Patient has no complaints. Objective Vital Signs Temp Pulse Resp BP BP Pulse Ox 10/28/17 04:55 75 123/34 95 10/27/17 23:23 97.6 F 91 H 16 113/46 96 10/27/17 21:17 97.8 F 90 16 126/47 98 10/27/17 18:08 98/59 10/27/17 16:00 98.0 F 95 H 24 98/59 93/58 100 10/27/17 15:51 92 H 18 109/68 10/27/17 15:47 97.5 F L 85 16 102/61 10/27/17 15:41 90 16 103/65 10/27/17 15:30 91 H 21 103/65 10/27/17 15:21 95 H 9 L 113/75 10/27/17 15:11 86 14 105/63 96 10/27/17 15:00 84 15 105/63 10/27/17 14:51 84 17 111/77 97 10/27/17 14:41 92 H 15 102/61 10/27/17 14:30 85 18 97/60 10/27/17 14:21 86 18 105/66 98 10/27/17 14:15 84 105/66 10/27/17 14:11 94 H 16 93/57 97 10/27/17 14:00 95 H 17 93/57 98 10/27/17 13:51 93 H 20 92/65 99 10/27/17 13:45 92 H 92/65 10/27/17 13:41 89 17 109/70 99 10/27/17 13:30 87 16 109/70 100 05/07/18 13:21 82 14 99/65 99 10/27/17 13:15 80 99/65 10/27/17 13:11 79 14 100/65 98 10/27/17 13:00 80 17 100/65 100 10/27/17 12:51 76 15 112/70 100 10/27/17 12:45 80 105/67 10/27/17 12:41 85 15 112/70 100 10/27/17 12:30 72 13 112/70 99 10/27/17 12:21 78 24 104/67 100 10/27/17 12:15 69 104/67 10/27/17 12:11 73 14 119/71 100 10/27/17 12:01 65 15 119/71 100 10/27/17 12:00 65 119/71 10/27/17 11:45 70 122/73 10/27/17 11:30 63 154/82 10/27/17 11:15 69 153/83 10/27/17 11:00 98.2 F 69 13 139/86 100 - Physical Examination General: No Apparent Distress HEENT: Positive: PERRL Cardiac: Positive: Reg Rate and Rhythm, Systolic Murmur Lungs: Positive: Decreased Breath Sounds Neuro: Positive: Grossly Intact Abdomen: Positive: Other (HERNIA) Extremities: Absent: edema (NO) - Allied health notes Allied health notes reviewed: nursing
--- NOTE | 2017-10-28 12:16 | Discharge Summary ---
Providers - Providers Date of Admission: 10/24/17 16:38 Date of discharge: 10/28/17 Attending physician: ALTHEA BUTLER 10/24/17 16:31 Consult to Physician [CONS] Urgent Comment: Consulting Provider: CHELSEY VASQUES Physician Instructions: Reason For Exam: esrd 10/24/17 16:33 Consult to Physician [CONS] Urgent Comment: Consulting Provider: GILBERTO LAINEZ Physician Instructions: Reason For Exam: heart block 10/24/17 20:24 Consult to Physician [CONS] Urgent Comment: Consulting Provider: BRYN SANTIAGO Physician Instructions: Reason For Exam: complete heart block, temporary pacemaker in Primary care physician: VIDEO PHOTOGRAPHER Hospitalization Condition: Good Hospital course: 62 YO Male with ESRD on HD (M,W,F), GERD, Nicotine Dependence presents to ED for evaluation. Pt was in his usual state of health and went to his scheduled dialysis session. Pt was found to have bradycardia with heart rate of 41. EMS notified, and upon arrival the patient was found to have symptomatic bradycardia. Pt transported to [facility] for further care and evaluation. Pt seen and evaluated in ED and found to have heart block. Cardiology consulted in ED and patient taken urgently to [facility] for intervention. Pt denies fever, chills, CP , Palpitations, NVD, Syncope, headache, Seizure, BRBPR, Unintentional weight loss, night sweats, skin rash, or recent ill contacts. Pt admitted to ICU. Complete heart block s/p PPM Nicotine dependence Hypotension End-stage renal disease GERD Hypokalemia Small right-sided pleural effusion Abdominal hernia Plan * Continue supportive care and transfer to tele * Nephrology and cardiology input noted in addition to gate manager * Expect potassium correction with dialysis. * Close monitoring of blood pressure. Hold any blood pressure medications. * 15 minutes of smoking cessation counseling provided * Continues on temporary pacemaker permanent pacemaker insertion planned for early next week * DVT and GI prophylaxis * Plan of care discussed with the patient detail patient verbalized understanding * Discharge home, went into detail regarding no pulling or pushing with the arm where the ppm implanted. Disposition: TO HOME OR SELFCARE Time spent for discharge: 32 min Core Measure Documentation - Palliative Care Palliative Care/ Comfort Measures: Not Applicable - Core Measures Any of the following diagnoses?: none - VTE Discharge Requirements Deep Vein Thrombosis/Pulmonary Embolism Present on Admission: No Has pt received <5 days of overlap therapy or INR<2.0: No Anticoagulant overlap therapy prescribed at discharge: No Contraindication No Overlap Therapy order at DC: Not Indicated Exam - Constitutional Vitals: Temp Pulse Resp BP Pulse Ox 97.6 F 75 16 123/34 95 10/27/17 23:23 10/28/17 04:55 10/27/17 23:23 10/28/17 04:55 10/28/17 04:55 General appearance: Present: no acute distress, mild distress - EENT Eyes: Present: PERRL, EOM intact ENT: hearing intact, clear oral mucosa - Neck Neck: Present: supple, normal ROM - Respiratory Respiratory effort: normal Respiratory: bilateral: CTA - Cardiovascular Rhythm: regular Heart Sounds: Present: S1 & S2 - Extremities Extremities: no ischemia, pulses intact Peripheral Pulses: within normal limits - Abdominal General gastrointestinal: Present: non-tender, non-distended, normal bowel sounds - Integumentary Integumentary: Present: clear, warm, dry - Musculoskeletal Musculoskeletal: strength equal bilaterally - Psychiatric Psychiatric: appropriate mood/affect - Neurologic Neurologic: CNII-XII intact Plan Follow up with: PRIMARY CARE, [Primary Care Provider] - 3-5 Days GILBERTO LAINEZ MD [Staff Physician] - 7 Days CHELSEY VASQUES MD [Staff Physician] - 7 Days BRYN SANTIAGO MD [Staff Physician] - 7 Days Prescriptions: Famotidine [Pepcid] 20 mg PO QDAY #15 tablet HYDROcodone/APAP 5-325 [Mclain 5-325 mg TAB] 1 each PO Q6H PRN #15 tablet PRN Reason: Pain, Moderate (4-6)
--- NOTE | 2017-10-28 13:22 | Progress Note ---
Subjective Date of service: 10/28/17 Principal diagnosis: Symptomatic Bradycardia; Complete heart block; ESRD on Dialysis Objective Vital Signs - 12hr 10/28/17 04:55 Pulse Rate 75 Blood Pressure 123/34 O2 Sat by Pulse 95 Oximetry Constitutional: no acute distress, alert Eyes: non-icteric ENT: oropharynx moist, other (mallampatti 2 ) Neck: supple, no lymphadenopathy, no JVD, other (no thyromegaly) Effort: mildly labored Ascultation: Bilateral: diminished breath sounds, rhonchi Percussion: Bilateral: not dull Cardiovascular: regular rate and rhythm, other (no R/M) Gastrointestinal: normoactive bowel sounds, soft, non-tender, non-distended, other (no palpable HSM) Integumentary: normal Extremities: no cyanosis, no edema, pulses normal, no ischemia or petechiae Neurologic: normal mental status, non-focal exam, pupils equal and round, motor strength normal and Psychiatric: mood appropriate, affect normal CBC and BMP: 10/24/17 16:07 10/27/17 03:10 ABG, PT/INR, D-dimer: PT/INR, D-dimer PT 13.0 Sec. (12.2-14.9) 10/27/17 06:57 INR 0.94 (0.87-1.13) 10/27/17 06:57 Abnormal lab findings: Abnormal Labs 10/24/17 10/24/17 10/24/17 16:07 16:07 16:50 RDW 18.0 H [place] % (Auto) 15.9 H Potassium Chloride 93.8 L Carbon Dioxide BUN Creatinine 3.4 H Glucose 104 H POC Glucose Alkaline Phosphatase Troponin T 0.081 H Albumin Free T4 1.47 H 10/24/17 10/24/17 10/25/17 19:51 21:38 00:35 RDW [place] % (Auto) Potassium Chloride Carbon Dioxide BUN Creatinine Glucose POC Glucose 240 H Alkaline Phosphatase Troponin T 0.076 H 0.087 H Albumin Free T4 10/25/17 10/25/17 10/25/17 04:45 08:21 11:30 RDW [place] % (Auto) Potassium 3.4 L Chloride 94.3 L Carbon Dioxide 31 H BUN Creatinine 4.5 H Glucose 128 H POC Glucose 135 H 116 H Alkaline Phosphatase Troponin T Albumin Free T4 10/25/17 10/25/17 10/25/17 11:53 12:00 15:55 RDW [place] % (Auto) Potassium Chloride Carbon Dioxide BUN Creatinine Glucose POC Glucose 117 H 187 H Alkaline Phosphatase 176 H Troponin T Albumin 3.4 L Free T4 10/25/17 10/26/17 10/26/17 21:40 02:13 05:32 RDW [place] % (Auto) Potassium Chloride Carbon Dioxide BUN Creatinine Glucose POC Glucose 241 H 183 H 143 H Alkaline Phosphatase Troponin T Albumin Free T4 10/26/17 10/26/17 10/26/17 09:54 14:34 18:12 RDW [place] % (Auto) Potassium Chloride Carbon Dioxide BUN Creatinine Glucose POC Glucose 283 H 197 H 211 H Alkaline Phosphatase Troponin T Albumin Free T4 10/26/17 10/27/17 10/27/17 21:59 02:01 03:10 RDW [place] % (Auto) Potassium Chloride 93.6 L Carbon Dioxide BUN 37 H Creatinine 6.7 H Glucose 157 H POC Glucose 175 H 195 H Alkaline Phosphatase Troponin T Albumin Free T4 10/27/17 05:34 RDW [place] % (Auto) Potassium Chloride Carbon Dioxide BUN Creatinine Glucose POC Glucose 154 H Alkaline Phosphatase Troponin T Albumin Free T4 Allied health notes reviewed: nursing
--- NOTE | 2017-10-28 13:27 | Progress Note ---
Assessment and Plan Symptomatic Bradycardia 3rd degree heart block ESRD on Dialysis Tobacco Use Disorder GERD Small right-sided pleural effusion Abdominal hernia - continue prn supplemental oxygen to keep O2 Sats > 90% - s/p permanent pacemaker - follow electrolytes - continue HD/UF per nephrology prescription - continue GI & VTE prophylaxis - smoking cessation counselling again > 15 mins - continue other care per attending / other consultants - d/c planning ok respiratory-auguste ....re-evaluate in am & prn ... 25' Subjective Date of service: 10/28/17 Principal diagnosis: Symptomatic Bradycardia; Complete heart block; ESRD on Dialysis Interval history: Patient is seen today for: Symptomatic Bradycardia; Complete heart block; ESRD on Dialysis Seen and examined at bedside; 24hour events reviewed; nursing and respiratory care staff consulted; no adverse overnight events reported to me; resting peacefully in bed; off oxygen; denies acute chest pains or increased SOB; No N/V /F/C; denies pain at PPM insertion site. Objective Vital Signs - 12hr 10/28/17 04:55 Pulse Rate 75 Blood Pressure 123/34 O2 Sat by Pulse 95 Oximetry Constitutional: no acute distress, alert Eyes: non-icteric ENT: oropharynx moist, other (mallampatti 2 ) Neck: supple, no lymphadenopathy, no JVD, other (no thyromegaly) Effort: mildly labored Ascultation: Bilateral: diminished breath sounds, rhonchi (posterior bases) Percussion: Bilateral: not dull Cardiovascular: regular rate and rhythm, other (no R/M) Gastrointestinal: normoactive bowel sounds, soft, non-tender, non-distended, other (no palpable HSM) Integumentary: normal Extremities: no cyanosis, no edema, pulses normal, no ischemia or petechiae Neurologic: normal mental status, non-focal exam, pupils equal and round, motor strength normal and Psychiatric: mood appropriate, affect normal CBC and BMP: 10/24/17 16:07 10/27/17 03:10 ABG, PT/INR, D-dimer: PT/INR, D-dimer PT 13.0 Sec. (12.2-14.9) 10/27/17 06:57 INR 0.94 (0.87-1.13) 10/27/17 06:57 Abnormal lab findings: Abnormal Labs 10/24/17 10/24/1710/24/18 16:07 16:07 16:50 RDW 18.0 H [place] % (Auto) 15.9 H Potassium Chloride 93.8 L Carbon Dioxide BUN Creatinine 3.4 H Glucose 104 H POC Glucose Alkaline Phosphatase Troponin T 0.081 H Albumin Free T4 1.47 H 10/24/17 10/24/17 10/25/17 19:51 21:38 00:35 RDW [place] % (Auto) Potassium Chloride Carbon Dioxide BUN Creatinine Glucose POC Glucose 240 H Alkaline Phosphatase Troponin T 0.076 H 0.087 H Albumin Free T4 10/25/17 10/25/17 10/25/17 04:45 08:21 11:30 RDW [place] % (Auto) Potassium 3.4 L Chloride 94.3 L Carbon Dioxide 31 H BUN Creatinine 4.5 H Glucose 128 H POC Glucose 135 H 116 H Alkaline Phosphatase Troponin T Albumin Free T4 10/25/17 10/25/17 10/25/17 11:53 12:00 15:55 RDW [place] % (Auto) Potassium Chloride Carbon Dioxide BUN Creatinine Glucose POC Glucose 117 H 187 H Alkaline Phosphatase 176 H Troponin T Albumin 3.4 L Free T4 10/25/17 10/26/17 10/26/17 21:40 02:13 05:32 RDW [place] % (Auto) Potassium Chloride Carbon Dioxide BUN Creatinine Glucose POC Glucose 241 H 183 H 143 H Alkaline Phosphatase Troponin T Albumin Free T4 10/26/17 10/26/17 10/26/17 09:54 14:34 18:12 RDW [place] % (Auto) Potassium Chloride Carbon Dioxide BUN Creatinine Glucose POC Glucose 283 H 197 H 211 H Alkaline Phosphatase Troponin T Albumin Free T4 10/26/17 10/27/17 10/27/17 21:59 02:01 03:10 RDW [place] % (Auto) Potassium Chloride 93.6 L Carbon Dioxide BUN 37 H Creatinine 6.7 H Glucose 157 H POC Glucose 175 H 195 H Alkaline Phosphatase Troponin T Albumin Free T4 10/27/17 05:34 RDW [place] % (Auto) Potassium Chloride Carbon Dioxide BUN Creatinine Glucose POC Glucose 154 H Alkaline Phosphatase Troponin T Albumin Free T4 Allied health notes reviewed: nursing
== END 2017-10-28 20:20 | disposition home or self-care (01) | DRG 228 ==
LOC: ED 15:14 → CC1 16:38 → 4A 10-27 16:29
PROVIDERS: ADMIT Internal Medicine; ATTEND Internal Medicine
PROC: 02HK3NZ Insertion of Intracardiac Pacemaker into Right Ventricle, Percutaneous Approach (ICD-10-PCS; 2017-10-24)
PROC: 5A1D70Z Performance of Urinary Filtration, Intermittent, Less than 6 Hours Per Day (ICD-10-PCS; principal; 2017-10-25)
PROC: 5A1D70Z Performance of Urinary Filtration, Intermittent, Less than 6 Hours Per Day (ICD-10-PCS; 2017-10-25)
PROC: 0JH606Z Insertion of Pacemaker, Dual Chamber into Chest Subcutaneous Tissue and Fascia, Open Approach (ICD-10-PCS; 2017-10-27)
PROC: 02H63JZ Insertion of Pacemaker Lead into Right Atrium, Percutaneous Approach (ICD-10-PCS; 2017-10-27)
PROC: 02HK3JZ Insertion of Pacemaker Lead into Right Ventricle, Percutaneous Approach (ICD-10-PCS; 2017-10-27)
DX: I44.2 Atrioventricular block, complete (principal); N18.6 End stage renal disease; J90 Pleural effusion, not elsewhere classified; K21.9 Gastro-esophageal reflux disease without esophagitis; E87.6 Hypokalemia; E83.39 Other disorders of phosphorus metabolism; K46.9 Unspecified abdominal hernia without obstruction or gangrene; I05.0 Rheumatic mitral stenosis; D64.9 Anemia, unspecified; F17.210 Nicotine dependence, cigarettes, uncomplicated; Z99.2 Dependence on renal dialysis; Z82.49 Family history of ischemic heart disease and other diseases of the circulatory system; Z86.73 Personal history of transient ischemic attack (TIA), and cerebral infarction without residual deficits
CPT/HCPCS: 33208; 33210; 36415; 71045; 76937; 80048; 80061; 80074; 82962; 83735; 84439; 84443; 84484; 85025; 85610; 93005; 93010; 93306; C1779; C1781; C1785; C1892; C1894; J0610; J0690; J1170; J1644; J2250; J2704; J3010; J3370; J7030; J7040; Q9967

== ENCOUNTER 2018-06-27 14:42 | Inpatient (IN) | payer MEDICARE ==
[2018-06-27 17:57] LABS: Calcium 9.7 mg/dL (8.4-10.2)
[2018-06-27] MEDS ORDERED: NACL 0.9% 1000 ML IV ONE (18:04)
[2018-06-27] MEDS ORDERED: LEVAQUIN PO ONE (18:04)
--- NOTE | 2018-06-27 18:08 | Emergency Department Report ---
- General Chief Complaint: Dyspnea/Respdistress Stated Complaint: COUGH/JEREMIAS Time Seen by Provider: 06/27/18 16:36 Source: patient Mode of arrival: Ambulatory Limitations: No Limitations - History of Present Illness Initial Comments: 62-year-old male history of end-stage renal disease presents to ED with cough productive of yellow sputum 1 week. Patient has been taking [id number] medications without relief. Denies fever, nausea, vomiting. At triage patient's blood pressure is 92/72, however daughter states patient has history of low blood pressure and is actually on midodrine. Patient last dialyzed yesterday. -: week(s) (1) Severity: moderate Consistency: constant Improves With: nothing Worsens With: nothing Context: sick contacts Associated Symptoms: cough. denies: fever, chills - Related Data Home Medications Medication Instructions Recorded Confirmed Last Taken Midodrine [Proamatine] 5 mg PO 3XW 08/16/16 10/24/17 08/16/16 06:30 Sevelamer Carbonate [Renvela] 800 mg PO TIDWM 08/16/16 10/24/17 08/16/16 06:30 Vit B Comp C/Folic Acid/Vit D3 1 each PO QDAY 08/16/16 10/24/17 08/16/16 06:30 [Dialyvite 800 Plus D Wafer] Previous Rx's Medication Instructions Recorded Last Taken Type Acetaminophen [Acetaminophen TAB] 650 mg PO Q4H PRN #30 tablet 10/28/17 Unknown Rx Famotidine [Pepcid] 20 mg PO QDAY #15 tablet 10/28/17 Unknown Rx HYDROcodone/APAP 5-325 [[place] 1 each PO Q6H PRN #15 tablet 10/28/17 Unknown Rx 5-325 mg TAB] Allergies Allergy/AdvReac Type Severity Reaction Status Date / Time No Known Allergies Allergy Verified 08/16/16 14:35 ED Review of Systems ROS: Stated complaint: COUGH/JEREMIAS Other details as noted in HPI Comment: All other systems reviewed and negative Constitutional: denies: chills, fever Respiratory: cough, shortness of breath ED Past Medical Hx - Past Medical History Previous Medical History?: Yes Hx Hypertension: No Hx Heart Attack/AMI: No Hx Congestive Heart Failure: No Hx Diabetes: No Hx GERD: Yes Hx Renal Disease: Yes (dialysis M, W, F) Hx Asthma: No Hx COPD: No - Surgical History Past Surgical History?: Yes Hx Pacemaker: Yes (external pacer is in place) Additional Surgical History: fistula to left upper arm - Social History Smoking Status: Current Every Day Smoker Substance Use Type: Alcohol, Prescribed - Medications Home Medications: Home Medications Medication Instructions Recorded Confirmed Last Taken Type Midodrine [Proamatine] 5 mg PO 3XW 08/16/16 10/24/17 08/16/16 06:30 History Sevelamer Carbonate [Renvela] 800 mg PO TIDWM 08/16/16 10/24/17 08/16/16 06:30 History Vit B Comp C/Folic Acid/Vit D3 1 each PO QDAY 08/16/16 10/24/17 08/16/16 06:30 History [Dialyvite 800 Plus D Wafer] Acetaminophen [Acetaminophen TAB] 650 mg PO Q4H PRN #30 tablet 10/28/17 Unknown Rx Famotidine [Pepcid] 20 mg PO QDAY #15 tablet 10/28/17 Unknown Rx HYDROcodone/APAP 5-325 [[place] 1 each PO Q6H PRN #15 tablet 10/28/17 Unknown Rx 5-325 mg TAB] ED Physical Exam - General Limitations: No Limitations General appearance: alert, in no apparent distress - Head Head exam: Present: atraumatic, normocephalic - Eye Eye exam: Present: normal appearance - ENT ENT exam: Present: mucous membranes moist - Neck Neck exam: Present: normal inspection - Respiratory Respiratory exam: Present: normal lung sounds bilaterally. Absent: respiratory distress - Cardiovascular Cardiovascular Exam: Present: normal rhythm, bradycardia - GI/Abdominal GI/Abdominal exam: Present: soft. Absent: distended - Extremities Exam Extremities exam: Present: normal inspection - Neurological Exam Neurological exam: Present: alert, oriented X3 - Psychiatric Psychiatric exam: Present: normal affect, normal mood - Skin Skin exam: Present: warm, dry, intact, normal color ED Course Vital Signs 06/27/18 06/27/18 15:05 18:23 Temperature 98.1 F Pulse Rate 57 L 84 Respiratory 16 18 Rate Blood Pressure 92/72 Blood Pressure 101/63 [Right] O2 Sat by Pulse 100 99 Oximetry ED Medical Decision Making - Lab Data Result diagrams: 06/27/18 17:32 06/27/18 17:32 - Radiology Data Radiology results: report reviewed, image reviewed - Medical Decision Making 62-year-old male with cough and shortness of breath 1 week. Chest x-ray shows interstitial opacity in the left lung base. O2 sats normal. Blood pressure in itially low, with systolic BP in the 90s. Patient has history of low blood pressure, for which he takes Midodrine. However, lactic acid is elevated at 2.6, so will administer IV fluids. Blood cultures drawn. Levaquin given for the infiltrate on chest x-ray. I spoke with Dr. Miguel, hospitalist, will admit the patient. - Differential Diagnosis pneumonia, bronchitis, pulmonary edema Critical care attestation.: If time is entered above; I have spent that time in minutes in the direct care of this critically ill patient, excluding procedure time. ED Disposition Clinical Impression: Pneumonia, Sepsis Disposition: -09 OP ADMIT IP TO THIS HOSP Is pt being admited?: Yes Condition: Stable Referrals: PRIMARY CARE, [Primary Care Provider] - 3-5 Days Time of Disposition: 18:31
--- NOTE | 2018-06-27 18:10 | XRay Report ---
FINAL REPORT EXAM: XR CHEST ROUTINE 2V HISTORY: cough TECHNIQUE: 2 view examination of the chest PRIORS: 10/24/2017 FINDINGS: A new electronic cardiac device obscures a portion of the right chest, limiting the examination. Cab le entry is via the right subclavian vein. New blunting right CP angle may be scar or small effusion. There appears to be new slight fluid in th e right minor fissure. Interval resolution of left pleural effusion. New patchy and interstitial nonspecific opacity in left lung base. No pneumothorax. Normal cardiac silhouette size without definite vascular congestion. No acute displa augustine fracture. Atherosclerotic calcification in aortic arch. IMPRESSION: New lateral right CP angle scar versus small effusion also tracking in the minor fissure New patchy and interstitial opacity in left lung base may be atelectasis, edema, and/or pneumonitis
[2018-06-27 18:13] LABS: Basophils # (Auto) 0.1 K/mm3 (0.0-0.1); Basophils % (Auto) 0.5 % (0.0-1.8); Eosinophils # (Auto) 0.1 K/mm3 (0.0-0.4); Eosinophils % (Auto) 0.9 % (0.0-4.3); Hematocrit 34.6 % (35.5-45.6); Hemoglobin 11.4 gm/dl (11.8-15.2); Lymphocytes # (Auto) 1.2 K/mm3 (1.2-5.4); Lymphocytes % (Auto) 10.2 % (13.4-35.0); Mean Corpuscular HGB Conc 33 % (32-34); Mean Corpuscular Volume 89 fl (84-94); Monocytes # (Auto) 0.8 K/mm3 (0.0-0.8); Platelet Count 273 K/mm3 (140-440); Red Blood Count 3.89 M/mm3 (3.65-5.03); Red Cell Distribution Width 17.1 % (13.2-15.2)
--- NOTE | 2018-06-27 18:48 | History and Physical Report ---
History of Present Illness Chief complaint: I feel sick History of present illness: 62 YO Male with ESRD on HD (M,W,F), GERD, Nicotine Dependence presents to ED for evaluation. Pt states that he has experienced general malaise, and productive cough of yellow sputum over the past 1week with persistent symptoms over same time frame. Pt transported to by family to [facility] for further care and evaluation. Pt seen and evaluated in ED and found to have ESRD, as well as Pneumonia. Pt Admitted to medical floor and initiated on Pneumonia protocol. Nephrology consulted in ED. Pt denies fever, chills, CP, Palpitations, NVD, Trauma, Skin Rash, NVD, Syncope, headache, Seizure, BRBPR, Unintentional weight loss, night sweats, skin rash, or recent ill contacts. Past History Past Medical History: ESRD, GERD Past Surgical History: Other (AV Fistula) Social history: , smoking Family history: no significant family history (reviewed) Medications and Allergies Allergies Allergy/AdvReac Type Severity Reaction Status Date / Time No Known Allergies Allergy Verified 08/16/16 14:35 Home Medications Medication Instructions Recorded Confirmed Last Taken Type Midodrine [Proamatine] 5 mg PO 3XW 08/16/16 10/24/17 08/16/16 06:30 History Sevelamer Carbonate [Renvela] 800 mg PO TIDWM 08/16/16 10/24/17 08/16/16 06:30 History Vit B Comp C/Folic Acid/Vit D3 1 each PO QDAY 08/16/16 10/24/17 08/16/16 06:30 History [Dialyvite 800 Plus D Wafer] Acetaminophen [Acetaminophen TAB] 650 mg PO Q4H PRN #30 tablet 10/28/17 Unknown Rx Famotidine [Pepcid] 20 mg PO QDAY #15 tablet 10/28/17 Unknown Rx HYDROcodone/APAP 5-325 [[place] 1 each PO Q6H PRN #15 tablet 10/28/17 Unknown Rx 5-325 mg TAB] Review of Systems Constitutional: weakness, malaise, no weight loss, no weight gain, no fever Ears, nose, mouth and throat: no ear pain, no ear discharge, no tinnitis, no decreased hearing, no nose pain Cardiovascular: no chest pain, no orthopnea, no palpitations, no rapid/irregular heart beat Respiratory: cough, cough with sputum Gastrointestinal: no nausea, no vomiting, no diarrhea, no change in bowel habits Genitourinary Male: no hematuria, no flank pain, no discharge, no urinary frequency, no urinary hesitancy Rectal: no pain, no incontinence, no bleeding Musculoskeletal: no neck stiffness, no neck pain, no shooting arm pain, no arm numbness/tingling, no low back pain Integumentary: no rash, no pruritis, no redness, no sores, no wounds Neurological: no paralysis, no weakness, no parathesias, no numbness, no tingling Psychiatric: no anxiety, no memory loss, no change in sleep habits, no sleep disturbances, no insomnia, no hypersomnia Endocrine: no cold intolerance, no heat intolerance, no excessive thirst, no polydipsia, no polyuria, no nocturia Hematologic/Lymphatic: no easy bruising, no easy bleeding, no lymphadenopathy, no lymphedema Allergic/Immunologic: no urticaria, no allergic rhinitis, no wheezing Exam - Constitutional Vitals: Temp Pulse Resp BP Pulse Ox 98.1 F 84 18 101/63 99 06/27/18 15:05 06/27/18 18:23 06/27/18 18:23 06/27/18 18:23 06/27/18 18:23 General appearance: Present: mild distress, cachectic - EENT Eyes: Present: PERRL ENT: hearing intact, clear oral mucosa - Neck Neck: Present: supple, normal ROM - Respiratory Respiratory effort: normal Respiratory: bilateral: diminished, rhonchi - Cardiovascular Heart Sounds: Present: S1 & S2. Absent: rub, click - Extremities Extremities: pulses symmetrical, No edema Peripheral Pulses: within normal limits - Abdominal General gastrointestinal: Present: soft, non-tender, non-distended, normal bowel sounds Male genitourinary: Present: normal - Integumentary Integumentary: Present: clear, warm, dry - Musculoskeletal Musculoskeletal: gait normal, strength equal bilaterally - Psychiatric Psychiatric: appropriate mood/affect, intact judgment & insight - Neurologic Neurologic: CNII-XII intact, moves all extremities Results - Labs CBC & Chem 7: 06/27/18 17:32 06/27/18 17:32 Labs: Abnormal lab results 06/27/18 06/27/18 06/27/18 Range/Units 17:32 17:32 17:32 WBC 11.4 H (4.5-11.0) K/mm3 Hgb 11.4 L (11.8-15.2) gm/dl Hct 34.6 L (35.5-45.6) % RDW 17.1 H (13.2-15.2) % Lymph % (Auto) 10.2 L (13.4-35.0) % Seg Neutrophils % 81.4 H (40.0-70.0) % Seg Neutrophils # 9.3 H (1.8-7.7) K/mm3 Potassium 3.2 L (3.6-5.0) mmol/L Chloride 88.5 L (98-107) mmol/L Carbon Dioxide 33 H (22-30) mmol/L BUN 25 H (9-20) mg/dL Creatinine 5.8 H (0.8-1.5) mg/dL Glucose 143 H (75-100) mg/dL Lactic Acid 2.60 H* (0.7-2.0) mmol/L Assessment and Plan - Patient Problems (1) Pneumonia Current Visit: Yes Status: Acute Qualifiers: Laterality: left Lung location: lower lobe of lung Plan to address problem: Pneumonia protocol: IV antibiotic therapy, chest x ray, nebulizer therapy, supplemental oxygen, CBC (2) SIRS (systemic inflammatory response syndrome) Current Visit: Yes Status: Acute Plan to address problem: IV antibiotic therapy, CBC, Chest X ray, supportive care. (3) Acidosis Current Visit: Yes Status: Acute Plan to address problem: IV bicarbonate, repeat bmp, treat pneumonia, (4) Nicotine dependence Current Visit: No Status: Acute Qualifiers: Nicotine product type: cigarettes Substance use status: in withdrawal Qualified Code(s): F17.213 - Nicotine dependence, cigarettes, with withdrawal Plan to address problem: Smoking cessation counseling, supportive care. (5) DVT prophylaxis Current Visit: Yes Status: Acute Plan to address problem: SCD to BLE while in bed
[2018-06-27] MEDS ORDERED: TYLENOL PO PRN ×2 (18:50→18:52)
[2018-06-27] MEDS ORDERED: PROVENTIL IH PRN (18:50)
[2018-06-27] MEDS ORDERED: ZOFRAN IV PRN (18:50)
[2018-06-27] MEDS ORDERED: SODIUM CHLORIDE FLUSH SYRINGE 10 ML IV PRN (18:50)
[2018-06-27] MEDS: ROCEPHIN/NS 2 GM/100 ML 2 GM/100 ML BAG IV SCH (19:37)
[2018-06-27] MEDS: ZITHROMAX 500 MG in NACL 0.9% 250ML 250 ML IV SCH (20:18)
[2018-06-27] MEDS: SODIUM CHLORIDE FLUSH SYRINGE 10 ML IV SCH (22:21)
[2018-06-28] MEDS: HYDROMET PO PRN ×3 (00:05→18:19)
[2018-06-28] MEDS ORDERED: MAGNESIUM SULFATE 1 GM in NACL 0.9% 50 ML IV ONE (04:59)
[2018-06-28] MEDS: RENVELA PO SCH ×3 (08:00→17:07)
[2018-06-28] MEDS: SODIUM CHLORIDE FLUSH SYRINGE 10 ML IV SCH ×2 (09:48→22:41)
[2018-06-28] MEDS: Renal Caps PO SCH (09:49)
[2018-06-28] MEDS: PEPCID PO SCH (09:49)
[2018-06-28] MEDS ORDERED: NON-FORMULARY (Vit B Comp C/Folic Acid/Vit D3 [Dialyvite 800 Plus D Wafer] 1 EACH) PO SCH (10:00)
[2018-06-28] MEDS ORDERED: NACL 0.9% 100 ML IV PRN (13:37)
--- NOTE | 2018-06-28 13:47 | Consultation ---
History of Present Illness - Reason for Consult Consult date: 06/28/18 end stage renal disease Requesting physician: JOHN MACK - History of Present Illness This is a 62 y/o male with PMH of ESRD on HD, GERD, hypotension who presented to [facility] yesterday with c/o shortness of breath, productive cough with green sputum, and generalized weakness. Pt admitted to hospitalist service, started on antibiotics for pneumonia. This pt undergoes outpatient HD at [facility] every MWF. Last HD treatment was 06/26/18. We were consulted to evaluate this pt who has ESRD. Past History Past Medical History: ESRD, GERD Past Surgical History: Other (AV Fistula) Social history: , smoking Family history: no significant family history (reviewed) Medications and Allergies Allergies Allergy/AdvReac Type Severity Reaction Status Date / Time No Known Allergies Allergy Verified 08/16/16 14:35 Home Medications Medication Instructions Recorded Confirmed Last Taken Type Midodrine [Proamatine] 5 mg PO 3XW 08/16/16 10/24/17 08/16/16 06:30 History Sevelamer Carbonate [Renvela] 800 mg PO TIDWM 08/16/16 10/24/17 08/16/16 06:30 History Vit B Comp C/Folic Acid/Vit D3 1 each PO QDAY 08/16/16 10/24/17 08/16/16 06:30 History [Dialyvite 800 Plus D Wafer] Acetaminophen [Acetaminophen TAB] 650 mg PO Q4H PRN #30 tablet 10/28/17 Unknown Rx Famotidine [Pepcid] 20 mg PO QDAY #15 tablet 10/28/17 Unknown Rx HYDROcodone/APAP 5-325 [[place] 1 each PO Q6H PRN #15 tablet 10/28/17 Unknown Rx 5-325 mg TAB] Active Meds: Active Medications Acetaminophen (Tylenol) 650 mg PO Q4H PRN PRN Reason: Pain MILD(1-3)/Fever >100.5/TOURE Acetaminophen/Hydrocodone Bitart ([place] 5/325) 1 each PO Q6H PRN PRN Reason: Pain, Moderate (4-6) Albuterol (Proventil) 2.5 mg IH Q4H PRN PRN Reason: Shortness Of Breath Famotidine (Pepcid) 20 mg PO QDAY LILI Last Admin: 06/28/18 09:49 Dose: 20 mg Documented by: Hydrocodone Bit/Homatropine Methylb (Hydromet) 10 ml PO Q6H PRN PRN Reason: Cough Last Admin: 06/28/18 09:48 Dose: 10 ml Documented by: Azithromycin 500 mg/ Sodium (Chloride) 250 mls @ 250 mls/hr IV Q24H [facility]; Protocol Last Admin: 06/27/18 20:18 Dose: 250 mls/hr Documented by: Ceftriaxone Sodium (Rocephin/Ns 2 Gm/100 Ml) 2 gm in 100 mls @ 200 mls/hr IV Q24H [facility]; Protocol Last Admin: 06/27/18 19:37 Dose: 200 mls/hr Documented by: Sodium Chloride (Nacl 0.9%) 100 mls @ 999 mls/hr IV VIKRAM PRN PRN Reason: Hypotension Midodrine (Proamatine) 5 mg PO MoWeFr [facility] Multivit/Ca Carb/B Cmplx/FA/Prenat (Renal Caps) 1 cap PO QDAY [facility] Last Admin: 06/28/18 09:49 Dose: 1 cap Documented by: Ondansetron HCl (Zofran) 4 mg IV Q8H PRN PRN Reason: Nausea And Vomiting Sevelamer Carbonate (Renvela) 800 mg PO TIDWM [facility] Last Admin: 06/28/18 12:00 Dose: 800 mg Documented by: Sodium Chloride (Sodium Chloride Flush Syringe 10 Ml) 10 ml IV BID [facility] Last Admin: 06/28/18 09:48 Dose: 10 ml Documented by: Sodium Chloride (Sodium Chloride Flush Syringe 10 Ml) 10 ml IV PRN PRN PRN Reason: LINE FLUSH Review of Systems Constitutional: fatigue, weakness, no fever Ears, nose, mouth and throat: nasal congestion, no headache Cardiovascular: shortness of breath, dyspnea on exertion, no chest pain Respiratory: cough with sputum, shortness of breath, dyspnea on exertion Gastrointestinal: no abdominal pain, no nausea, no vomiting, no diarrhea, no constipation, no hematemesis Genitourinary Male: no dysuria, no hematuria Musculoskeletal: muscle weakness Integumentary: no wounds Neurological: weakness, no headaches, no change in speech Psychiatric: no anxiety, no depression Endocrine: fatigue Exam - Vital Signs Vital signs: Vital Signs Temp Pulse Resp BP Pulse Ox 98.1 F 57 L 16 92/72 100 06/27/18 15:05 06/27/18 15:05 06/27/18 15:05 06/27/18 15:05 06/27/18 15:05 - General Appearance General appearance: frail EENT: ATNC Neck: Present: neck supple Respiratory: Decreased Breath Sounds Heart: regular, S1S2, other (ACCESS: Left AVF + thrill and bruit noted) Gastrointestinal: Present: normoactive bowel sounds. Absent: tenderness Integumentary: warm and dry Neurologic: alert and oriented x3 Musculoskeletal: Present: other (no edema to BLE) Psychiatric: mood/affect appropriate, cooperative Results - Lab Results 06/27/18 17:32 06/27/18 17:32 Most recent lab results Calcium 9.7 mg/dL (8.4-10.2) 06/27/18 17:32 Magnesium 2.00 mg/dL (1.7-2.3) 06/28/18 05:09 Assessment and Plan Pneumonia: - Follow cultures - On antibiotics, Nebs, steroids, oxygen ESRD on Hemodialysis: - Labs pending today - No acute indication for HD today - HD tomorrow for UF and clearance, goal UF 2-3 liters as tolerated - Adjusted HD prescription to decreased dialysate temp, sodium modeling, longer HD treatment time, and PRN albumin to assist with hemodynamic stability during HD - Continue midodrine for blood pressure support - Assess need for HD on daily basis - This pt undergoes outpatient HD at [facility] every MWF - Renally dose meds - Renal plan d/w Dr Crowe Hypokalemia: - HD prescription adjusted to [address] [place] for hypokalemia management - Labs pending today Hypotension, chronic: - Continue midodrine - Adjusted HD prescription to decreased dialysate temp, sodium modeling, longer HD treatment time, and PRN albumin to assist with hemodynamic stability during HD - UF as tolerated Anemia, normocytic: - Labs pending today - Epogen dosing as needed
[2018-06-28 14:25] LABS: Hematocrit 32.4 % (35.5-45.6); Hemoglobin 10.6 gm/dl (11.8-15.2); Mean Corpuscular HGB Conc 33 % (32-34); Mean Corpuscular Volume 90 fl (84-94); Platelet Count 238 K/mm3 (140-440); Red Blood Count 3.62 M/mm3 (3.65-5.03); Red Cell Distribution Width 16.8 % (13.2-15.2)
--- NOTE | 2018-06-28 16:53 | Progress Note ---
Assessment and Plan Assessment and plan: Patient is a 62 yo man with a history of ESRD on HD (M,W,F), GERD, Nicotine Dependence and hypertension who presents to [facility] ED with sob and productive cough. * 2 view CXR Impression: new lateral right cp angle scar vs small effusion also tracking in the minor fissure, new patchy and interstitial opacity in the left lung base may be atelectasis, edema and/or pneumonitis -Sepsis Pneumonia, poa: follow culture, careful with ivf due to ESRD -LLL pneumonia: treat with abx -ESRD on hemodialysis: consult nephrology -Metabolic acidosis, treat with hemodialysis: monitor closely -Tobacco dependency: equal opportunity counselor on stopping -Malnutrition, mild: consulted Logistics Assistant -DVT prophylaxis: scd History Interval history: Patient was seen and examined. Follow-up on current diagnosis of sob and cough with pneumonia, doing slightly better. Overnight uneventful. Patient denies any chest pain, nausea/vomiting or severe headaches. Imaging, nursing note, chart, labs and old chart reviewed. Discussed with patient. Hospitalist Physical - Physical exam Narrative exam: Gen: cachetic, bmi 18.3, NAD, Awake, Alert, Orientated HEENT: NCAT, EOMI, PERRL, OP Clear Neck: supple, no adenopathy, no thyromegaly, no JVD CVS/Heart: RRR, normal S1S2, pulses present bilaterally Chest/Lungs: coarse bs bilateral, diminished bs bilaterally, Symmetrical chest expansion, good air entry bilaterally GI/Abdomen: soft, NTND, good bowel sounds, no guarding or rebound /Bladder: no suprapubic tenderness, no CVA or paraspinal tenderness Extermity/Skin: no c/c/e, no obvious rash MSK: FROM x 4 Neuro: CN 2-12 grossly intact, no new focal deficits Psych: calm - Constitutional Vitals: Temp Pulse Resp BP Pulse Ox 98.0 F 71 20 100/62 100 06/28/18 12:16 06/28/18 12:16 06/28/18 12:16 06/28/18 12:16 06/28/18 12:16 General appearance: Present: mild distress, cachectic Results - Labs CBC & Chem 7: 06/28/18 14:13 06/28/18 14:13 Labs: Laboratory Last Values WBC 6.6 K/mm3 (4.5-11.0) 06/28/18 14:13 RBC 3.62 M/mm3 (3.65-5.03) L 06/28/18 14:13 Hgb 10.6 gm/dl (11.8-15.2) L 06/28/18 14:13 Hct 32.4 % (35.5-45.6) L 06/28/18 14:13 MCV 90 fl (84-94) 06/28/18 14:13 MCH 29 pg (28-32) 06/28/18 14:13 MCHC 33 % (32-34) 06/28/18 14:13 RDW 16.8 % (13.2-15.2) H 06/28/18 14:13 Plt Count 238 K/mm3 (140-440) 06/28/18 14:13 Lymph % (Auto) 10.2 % (13.4-35.0) L 06/27/18 17:32 [place] % (Auto) 7.0 % (0.0-7.3) 06/27/18 17:32 Eos % (Auto) 0.9 % (0.0-4.3) 06/27/18 17:32 Baso % (Auto) 0.5 % (0.0-1.8) 06/27/18 17:32 Lymph # 1.2 K/mm3 (1.2-5.4) 06/27/18 17:32 [place] # 0.8 K/mm3 (0.0-0.8) 06/27/18 17:32 Eos # 0.1 K/mm3 (0.0-0.4) 06/27/18 17:32 Baso # 0.1 K/mm3 (0.0-0.1) 06/27/18 17:32 Seg Neutrophils % 81.4 % (40.0-70.0) H 06/27/18 17:32 Seg Neutrophils # 9.3 K/mm3 (1.8-7.7) H 06/27/18 17:32 Sodium 141 mmol/L (137-145) 06/28/18 14:13 Potassium 4.4 mmol/L (3.6-5.0) D 06/28/18 14:13 Chloride 94.7 mmol/L (98-107) L 06/28/18 14:13 Carbon Dioxide 32 mmol/L (22-30) H 06/28/18 14:13 Anion Gap 19 mmol/L 06/28/18 14:13 BUN 34 mg/dL (9-20) H 06/28/18 14:13 Creatinine 6.9 mg/dL (0.8-1.5) H 06/28/18 14:13 Estimated GFR 10 ml/min 06/28/18 14:13 BUN/Creatinine Ratio 5 % 06/28/18 14:13 Glucose 127 mg/dL (75-100) H 06/28/18 14:13 Lactic Acid 2.00 mmol/L (0.7-2.0) 06/27/18 18:06 Calcium 9.0 mg/dL (8.4-10.2) 06/28/18 14:13 Magnesium 2.00 mg/dL (1.7-2.3) 06/28/18 05:09
[2018-06-28] MEDS: ROCEPHIN/NS 2 GM/100 ML 2 GM/100 ML BAG IV SCH (22:27)
[2018-06-28] MEDS: ZITHROMAX 500 MG in NACL 0.9% 250ML 250 ML IV SCH (23:20)
[2018-06-29 06:39] LABS: Hematocrit 29.2 % (35.5-45.6); Hemoglobin 9.9 gm/dl (11.8-15.2); Mean Corpuscular HGB Conc 34 % (32-34); Mean Corpuscular Volume 89 fl (84-94); Platelet Count 241 K/mm3 (140-440); Red Blood Count 3.28 M/mm3 (3.65-5.03); Red Cell Distribution Width 16.5 % (13.2-15.2)
[2018-06-29 07:00] LABS: Calcium 9.1 mg/dL (8.4-10.2)
[2018-06-29] MEDS: RENVELA PO SCH ×3 (08:21→17:36)
[2018-06-29] MEDS: PROAMATINE PO SCH (09:15)
[2018-06-29] MEDS: PEPCID PO SCH (09:15)
[2018-06-29] MEDS: Renal Caps PO SCH (09:15)
[2018-06-29] MEDS: SODIUM CHLORIDE FLUSH SYRINGE 10 ML IV SCH ×2 (09:18→22:38)
--- NOTE | 2018-06-29 10:51 | Progress Note ---
Assessment and Plan Pneumonia: - Follow cultures - On antibiotics, Nebs, steroids, oxygen ESRD on Hemodialysis: - HD today for UF and clearance, goal UF 2-3 liters as tolerated - Adjusted HD prescription to decreased dialysate temp, sodium modeling, longer HD treatment time, and PRN albumin to assist with hemodynamic stability during HD - Continue midodrine for blood pressure support - Assess need for HD on daily basis - This pt undergoes outpatient HD at [facility] every MWF - Renally dose meds Hypokalemia: - HD prescription adjusted to [address] [place] for hypokalemia management Hypotension, chronic: - Continue midodrine - Adjusted HD prescription to decreased dialysate temp, sodium modeling, longer HD treatment time, and PRN albumin to assist with hemodynamic stability during HD - UF as tolerated Anemia, normocytic: - Epogen dosing as needed Subjective Date of service: 06/29/18 Principal diagnosis: ESRD Interval history: was in HD this AM Objective - Vital Signs Vital signs: Vital Signs - 12hr 06/29/18 05:32 Temperature 97.9 F Pulse Rate 79 Respiratory 20 Rate Blood Pressure 107/65 O2 Sat by Pulse 96 Oximetry - Lab 06/29/18 06:23 06/29/18 06:23 Most recent lab results Calcium 9.1 mg/dL (8.4-10.2) 06/29/18 06:23 Phosphorus 5.70 mg/dL (2.5-4.5) H 06/29/18 06:23 Magnesium 2.00 mg/dL (1.7-2.3) 06/28/18 05:09 Medications & Allergies - Medications Allergies/Adverse Reactions: Allergies No Known Allergies Allergy (Verified 08/16/16 14:35) Home Medications: Home Medications Medication Instructions Recorded Confirmed Last Taken Type Midodrine [Proamatine] 5 mg PO 3XW 08/16/16 06/28/18 08/16/16 06:30 History Sevelamer Carbonate [Renvela] 800 mg PO TIDWM 08/16/16 06/28/18 08/16/16 06:30 History Vit B Comp C/Folic Acid/Vit D3 1 each PO QDAY 08/16/16 06/28/18 08/16/16 06:30 History [Dialyvite 800 Plus D Wafer] Acetaminophen [Acetaminophen TAB] 650 mg PO Q4H PRN #30 tablet 10/28/17 06/28/18 Unknown Rx Famotidine [Pepcid] 20 mg PO QDAY #15 tablet 10/28/17 06/28/18 Unknown Rx HYDROcodone/APAP 5-325 [[place] 1 each PO Q6H PRN #15 tablet 10/28/17 06/28/18 Unknown Rx 5-325 mg TAB] Active Medications: Generic Name Dose Route Start Last Admin Trade Name Freq PRN Reason Stop Dose Admin Acetaminophen 650 mg 06/27/18 18:50 Tylenol PO Q4H PRN Pain MILD(1-3)/Fever >100.5/TOURE Acetaminophen/Hydrocodone Bitart 1 each 06/27/18 18:52 [place] 5/325 PO Q6H PRN Pain, Moderate (4-6) Albuterol 2.5 mg 06/27/18 18:50 Proventil IH Q4H PRN Shortness Of Breath Famotidine 20 mg 06/28/18 10:00 06/29/18 09:15 Pepcid PO 20 mg QDAY LILI Administration Heparin Sodium (Porcine) 5,000 unit 06/29/18 22:00 Heparin SUB-Q Q8HR LILI Hydrocodone Bit/Homatropine Methylb 10 ml 06/27/18 20:21 06/28/18 18:19 Hydromet PO 10 ml Q6H PRN Administration Cough Azithromycin 500 mg/ Sodium 250 mls @ 250 mls/hr 06/27/18 20:00 06/28/18 23:20 Chloride IV 250 mls/hr Q24H LILI Administration Protocol Ceftriaxone Sodium 2 gm in 100 mls @ 200 mls/hr 06/27/18 19:00 06/28/18 22:27 Rocephin/Ns 2 Gm/100 Ml IV 200 mls/hr Q24H LILI Administration Protocol Sodium Chloride 100 mls @ 999 mls/hr 06/28/18 13:37 Nacl 0.9% IV VIKRAM PRN Hypotension Midodrine 5 mg 06/29/18 10:00 06/29/18 09:15 Proamatine PO 5 mg MoWeFr LILI Administration Multivit/Ca Carb/B Cmplx/FA/Prenat 1 cap 06/28/18 10:00 06/29/18 09:15 Renal Caps PO 1 cap QDAY LILI Administration Ondansetron HCl 4 mg 06/27/18 18:50 Zofran IV Q8H PRN Nausea And Vomiting Sevelamer Carbonate 800 mg 06/28/18 08:00 06/29/18 08:21 Renvela PO 800 mg TIDWM LILI Administration Sodium Chloride 10 ml 06/27/18 22:00 06/29/18 09:18 Sodium Chloride Flush Syringe 10 Ml IV 10 ml BID LILI Administration Sodium Chloride 10 ml 06/27/18 18:50 Sodium Chloride Flush Syringe 10 Ml IV PRN PRN LINE FLUSH
--- NOTE | 2018-06-29 11:14 | Progress Note ---
Assessment and Plan Assessment and plan: Patient is a 62 yo man with a history of ESRD on HD (M,W,F), GERD, Nicotine Dependence and hypertension who presents to [facility] ED with sob and productive cough. * 2 view CXR Impression: new lateral right cp angle scar vs small effusion also tracking in the minor fissure, new patchy and interstitial opacity in the left lung base may be atelectasis, edema and/or pneumonitis -Sepsis Pneumonia, poa: follow culture, careful with ivf due to ESRD -LLL pneumonia, sputum uncollected spoke with nurse: treat with abx -ESRD on hemodialysis: consulted nephrology -Metabolic acidosis, treat with hemodialysis: monitor closely -Tobacco dependency: career technical counselor on stopping -Malnutrition, mild: consulted Environmental Services Manager -DVT prophylaxis: scd History Interval history: Patient was seen and examined. Follow-up on current diagnosis of sob and cough with pneumonia, doing slightly better. Overnight uneventful. Patient denies any chest pain, nausea/vomiting or severe headaches. Imaging, nursing note, chart, l abs and old chart reviewed. Discussed with patient. Hospitalist Physical - Physical exam Narrative exam: Gen: cachetic, bmi 18.3, NAD, Awake, Alert, Orientated HEENT: NCAT, EOMI, PERRL, OP Clear Neck: supple, no adenopathy, no thyromegaly, no JVD CVS/Heart: RRR, normal S1S2, pulses present bilaterally Chest/Lungs: coarse bs bilateral, diminished bs bilaterally, Symmetrical chest expansion, good air entry bilaterally GI/Abdomen: soft, NTND, good bowel sounds, no guarding or rebound /Bladder: no suprapubic tenderness, no CVA or paraspinal tenderness Extermity/Skin: no c/c/e, no obvious rash MSK: FROM x 4 Neuro: CN 2-12 grossly intact, no new focal deficits Psych: calm - Constitutional Vitals: Temp Pulse Resp BP Pulse Ox 97.9 F 79 20 107/65 96 06/29/18 05:32 06/29/18 05:32 06/29/18 05:32 06/29/18 05:32 06/29/18 05:32 General appearance: Present: mild distress, cachectic Results - Labs CBC & Chem 7: 06/29/18 06:23 06/29/18 06:23 Labs: Laboratory Last Values WBC 6.5 K/mm3 (4.5-11.0) 06/29/18 06:23 RBC 3.28 M/mm3 (3.65-5.03) L 06/29/18 06:23 Hgb 9.9 gm/dl (11.8-15.2) L 06/29/18 06:23 Hct 29.2 % (35.5-45.6) L 06/29/18 06:23 MCV 89 fl (84-94) 06/29/18 06:23 MCH 30 pg (28-32) 06/29/18 06:23 MCHC 34 % (32-34) 06/29/18 06:23 RDW 16.5 % (13.2-15.2) H 06/29/18 06:23 Plt Count 241 K/mm3 (140-440) 06/29/18 06:23 Lymph % (Auto) 10.2 % (13.4-35.0) L 06/27/18 17:32 [place] % (Auto) 7.0 % (0.0-7.3) 06/27/18 17:32 Eos % (Auto) 0.9 % (0.0-4.3) 06/27/18 17:32 Baso % (Auto) 0.5 % (0.0-1.8) 06/27/18 17:32 Lymph # 1.2 K/mm3 (1.2-5.4) 06/27/18 17:32 [place] # 0.8 K/mm3 (0.0-0.8) 06/27/18 17:32 Eos # 0.1 K/mm3 (0.0-0.4) 06/27/18 17:32 Baso # 0.1 K/mm3 (0.0-0.1) 06/27/18 17:32 Seg Neutrophils % 81.4 % (40.0-70.0) H 06/27/18 17:32 Seg Neutrophils # 9.3 K/mm3 (1.8-7.7) H 06/27/18 17:32 Sodium 142 mmol/L (137-145) 06/29/18 06:23 Potassium 4.4 mmol/L (3.6-5.0) 06/29/18 06:23 Chloride 95.5 mmol/L (98-107) L 06/29/18 06:23 Carbon Dioxide 31 mmol/L (22-30) H 06/29/18 06:23 Anion Gap 20 mmol/L 06/29/18 06:23 BUN 40 mg/dL (9-20) H 06/29/18 06:23 Creatinine 8.4 mg/dL (0.8-1.5) H 06/29/18 06:23 Estimated GFR 8 ml/min 06/29/18 06:23 BUN/Creatinine Ratio 5 % 06/29/18 06:23 Glucose 99 mg/dL (75-100) 06/29/18 06:23 Lactic Acid 2.00 mmol/L (0.7-2.0) 06/27/18 18:06 Calcium 9.1 mg/dL (8.4-10.2) 06/29/18 06:23 Phosphorus 5.70 mg/dL (2.5-4.5) H 06/29/18 06:23 Magnesium 2.00 mg/dL (1.7-2.3) 06/28/18 05:09
[2018-06-29] MEDS ORDERED: NACL 0.9 (PRIMING MACHINE ONLY DIALYSIS) MC ONE (13:37)
[2018-06-29] MEDS: ROCEPHIN/NS 2 GM/100 ML 2 GM/100 ML BAG IV SCH (22:27)
[2018-06-29] MEDS: HEPARIN SUB-Q SCH (22:30)
[2018-06-29] MEDS: ZITHROMAX 500 MG in NACL 0.9% 250ML 250 ML IV SCH (22:37)
[2018-06-30] MEDS: HEPARIN SUB-Q SCH ×3 (05:39→21:26)
[2018-06-30 05:47] LABS: Hematocrit 29.4 % (35.5-45.6); Hemoglobin 9.7 gm/dl (11.8-15.2); Mean Corpuscular HGB Conc 33 % (32-34); Mean Corpuscular Volume 90 fl (84-94); Platelet Count 234 K/mm3 (140-440); Red Blood Count 3.26 M/mm3 (3.65-5.03); Red Cell Distribution Width 16.6 % (13.2-15.2)
[2018-06-30 06:04] LABS: Calcium 9.5 mg/dL (8.4-10.2)
--- NOTE | 2018-06-30 10:41 | Progress Note ---
Assessment and Plan Pneumonia: - Follow cultures - On antibiotics, Nebs, steroids, oxygen ESRD on Hemodialysis: - no indication for HD today - Continue midodrine for blood pressure support - Assess need for HD on daily basis - This pt undergoes outpatient HD at [facility] every MWF - Renally dose meds Hypotension, chronic: - Continue midodrine - Adjusted HD prescription to decreased dialysate temp, sodium modeling, longer HD treatment time, and PRN albumin to assist with hemodynamic stability during HD - UF as tolerated Anemia, normocytic: - Epogen dosing as needed Subjective Date of service: 06/30/18 Principal diagnosis: ESRD Interval history: tolerated HD well yesterday Objective - Vital Signs Vital signs: Vital Signs - 12hr 06/29/18 06/30/18 06/30/18 23:31 05:02 09:46 Temperature 98.0 F 98.6 F Pulse Rate 97 H 103 H Respiratory 20 20 Rate Blood Pressure 96/47 98/55 O2 Sat by Pulse 81 L 95 Oximetry - General Appearance General appearance: well-developed, well-nourished, appears stated age EENT: ATNC, PERRL, mucous membranes moist Neck: no JVD, no carotid bruit Respiratory: Present: Clear to Ascultation. Absent: Rales, Ronchi Cardiology: regular, S1S2 Gastrointestinal: normoactive bowel sounds, no tenderness, no distended Integumentary: no rash, warm and dry Neurologic: no focal deficit, no asterixis, alert and oriented x3 Musculoskeletal: other (no edema in BLE) Psychiatric: mood/affect appropriate, cooperative - Lab 06/30/18 05:10 06/30/18 05:10 Most recent lab results Calcium 9.5 mg/dL (8.4-10.2) 06/30/18 05:10 Phosphorus 5.70 mg/dL (2.5-4.5) H 06/29/18 06:23 Magnesium 2.00 mg/dL (1.7-2.3) 06/28/18 05:09 Medications & Allergies - Medications Allergies/Adverse Reactions: Allergies No Known Allergies Allergy (Verified 08/16/16 14:35) Home Medications: Home Medications Medication Instructions Recorded Confirmed Last Taken Type Midodrine [Proamatine] 5 mg PO 3XW 08/16/16 06/28/18 08/16/16 06:30 History Sevelamer Carbonate [Renvela] 800 mg PO TIDWM 08/16/16 06/28/18 08/16/16 06:30 History Vit B Comp C/Folic Acid/Vit D3 1 each PO QDAY 08/16/16 06/28/18 08/16/16 06:30 History [Dialyvite 800 Plus D Wafer] Acetaminophen [Acetaminophen TAB] 650 mg PO Q4H PRN #30 tablet 10/28/17 06/28/18 Unknown Rx Famotidine [Pepcid] 20 mg PO QDAY #15 tablet 10/28/17 06/28/18 Unknown Rx HYDROcodone/APAP 5-325 [[place] 1 each PO Q6H PRN #15 tablet 10/28/17 06/28/18 Unknown Rx 5-325 mg TAB] Active Medications: Generic Name Dose Route Start Last Admin Trade Name Freq PRN Reason Stop Dose Admin Acetaminophen 650 mg 06/27/18 18:50 Tylenol PO Q4H PRN Pain MILD(1-3)/Fever >100.5/TOURE Acetaminophen/Hydrocodone Bitart 1 each 06/27/18 18:52 [place] 5/325 PO Q6H PRN Pain, Moderate (4-6) Albuterol 2.5 mg 06/27/18 18:50 Proventil IH Q4H PRN Shortness Of Breath Azithromycin 500 mg 06/30/18 10:00 Zithromax PO QDAY LILI Famotidine 20 mg 06/28/18 10:00 06/29/18 09:15 Pepcid PO 20 mg QDAY LILI Administration Heparin Sodium (Porcine) 5,000 unit 06/29/18 22:00 06/30/18 05:39 Heparin SUB-Q 5,000 unit Q8HR LILI Administration Hydrocodone Bit/Homatropine Methylb 10 ml 06/27/18 20:21 06/28/18 18:19 Hydromet PO 10 ml Q6H PRN Administration Cough Ceftriaxone Sodium 2 gm in 100 mls @ 200 mls/hr 06/27/18 19:00 06/29/18 22:27 Rocephin/Ns 2 Gm/100 Ml IV 200 mls/hr Q24H LILI Administration Protocol Sodium Chloride 100 mls @ 999 mls/hr 06/28/18 13:37 Nacl 0.9% IV VIKRAM PRN Hypotension Midodrine 5 mg 06/29/18 10:00 06/29/18 09:15 Proamatine PO 5 mg MoWeFr LILI Administration Multivit/Ca Carb/B Cmplx/FA/Prenat 1 cap 06/28/18 10:00 06/29/18 09:15 Renal Caps PO 1 cap QDAY LILI Administration Ondansetron HCl 4 mg 06/27/18 18:50 Zofran IV Q8H PRN Nausea And Vomiting Sevelamer Carbonate 800 mg 06/28/18 08:00 06/29/18 17:36 Renvela PO 800 mg TIDWM LILI Administration Sodium Chloride 10 ml 06/27/18 22:00 06/29/18 22:38 Sodium Chloride Flush Syringe 10 Ml IV 10 ml BID LILI Administration Sodium Chloride 10 ml 06/27/18 18:50 Sodium Chloride Flush Syringe 10 Ml IV PRN PRN LINE FLUSH
[2018-06-30] MEDS: ZITHROMAX PO SCH (11:51)
[2018-06-30] MEDS: PEPCID PO SCH (11:51)
[2018-06-30] MEDS: Renal Caps PO SCH (11:51)
[2018-06-30] MEDS: RENVELA PO SCH ×4 (11:51→19:32)
[2018-06-30] MEDS: SODIUM CHLORIDE FLUSH SYRINGE 10 ML IV SCH ×2 (11:52→21:26)
--- NOTE | 2018-06-30 13:15 | Progress Note ---
Assessment and Plan Assessment and plan: Patient is a 62 yo man with a history of ESRD on HD (M,W,F), GERD, Nicotine Dependence and hypertension who presents to [facility] ED with sob and productive cough. * 2 view CXR Impression: new lateral right cp angle scar vs small effusion also tracking in the minor fissure, new patchy and interstitial opacity in the left lung base may be atelectasis, edema and/or pneumonitis -Sepsis Pneumonia, poa: follow culture, careful with ivf due to ESRD -Acute hypoxic respiratory, poa: trying to wean off o2 -LLL pneumonia, sputum uncollected spoke with nurse: treat with abx -ESRD on hemodialysis: consulted nephrology -Metabolic acidosis, treat with hemodialysis: monitor closely -Tobacco dependency: alcoholic counselor on stopping -Malnutrition, mild: consulted Hospital Monitor -DVT prophylaxis: scd Pulse ox dropped all the way down to 78% walking on RA, increased back to 90% on 2liters sputum also pending. d/c next 1-2 days with or without O2 History Interval history: Patient was seen and examined. Follow-up on current diagnosis of sob and cough with pneumonia, doing slightly better. Overnight uneventful. Patient denies any chest pain, nausea/vomiting or severe headaches. Imaging, nursing note, chart, labs and old chart reviewed. Discussed with patient. Hospitalist Physical - Physical exam Narrative exam: Gen: cachetic, bmi 18.3, NAD, Awake, Alert, Orientated HEENT: NCAT, EOMI, PERRL, OP Clear Neck: supple, no adenopathy, no thyromegaly, no JVD CVS/Heart: RRR, normal S1S2, pulses present bilaterally Chest/Lungs: coarse bs bilateral, diminished bs bilaterally, Symmetrical chest expansion, good air entry bilaterally GI/Abdomen: soft, NTND, good bowel sounds, no guarding or rebound /Bladder: no suprapubic tenderness, no CVA or paraspinal tenderness Extermity/Skin: no c/c/e, no obvious rash MSK: FROM x 4 Neuro: CN 2-12 grossly intact, no new focal deficits Psych: calm - Constitutional Vitals: Temp Pulse Resp BP Pulse Ox 98.6 F 103 H 20 98/55 95 06/30/18 05:02 06/30/18 05:02 06/30/18 05:02 06/30/18 05:02 06/30/18 09:46 General appearance: Present: mild distress, cachectic Results - Labs CBC & Chem 7: 06/30/18 05:10 06/30/18 05:10 Labs: Laboratory Last Values WBC 6.9 K/mm3 (4.5-11.0) 06/30/18 05:10 RBC 3.26 M/mm3 (3.65-5.03) L 06/30/18 05:10 Hgb 9.7 gm/dl (11.8-15.2) L 06/30/18 05:10 Hct 29.4 % (35.5-45.6) L 06/30/18 05:10 MCV 90 fl (84-94) 06/30/18 05:10 MCH 30 pg (28-32) 06/30/18 05:10 MCHC 33 % (32-34) 06/30/18 05:10 RDW 16.6 % (13.2-15.2) H 06/30/18 05:10 Plt Count 234 K/mm3 (140-440) 06/30/18 05:10 Lymph % (Auto) 10.2 % (13.4-35.0) L 06/27/18 17:32 [place] % (Auto) 7.0 % (0.0-7.3) 06/27/18 17:32 Eos % (Auto) 0.9 % (0.0-4.3) 06/27/18 17:32 Baso % (Auto) 0.5 % (0.0-1.8) 06/27/18 17:32 Lymph # 1.2 K/mm3 (1.2-5.4) 06/27/18 17:32 [place] # 0.8 K/mm3 (0.0-0.8) 06/27/18 17:32 Eos # 0.1 K/mm3 (0.0-0.4) 06/27/18 17:32 Baso # 0.1 K/mm3 (0.0-0.1) 06/27/18 17:32 Seg Neutrophils % 81.4 % (40.0-70.0) H 06/27/18 17:32 Seg Neutrophils # 9.3 K/mm3 (1.8-7.7) H 06/27/18 17:32 Sodium 141 mmol/L (137-145) 06/30/18 05:10 Potassium 3.8 mmol/L (3.6-5.0) 06/30/18 05:10 Chloride 96.7 mmol/L (98-107) L 06/30/18 05:10 Carbon Dioxide 27 mmol/L (22-30) 06/30/18 05:10 Anion Gap 21 mmol/L 06/30/18 05:10 BUN 22 mg/dL (9-20) H 06/30/18 05:10 Creatinine 5.5 mg/dL (0.8-1.5) H 06/30/18 05:10 Estimated GFR 13 ml/min 06/30/18 05:10 BUN/Creatinine Ratio 4 % 06/30/18 05:10 Glucose 153 mg/dL (75-100) H 06/30/18 05:10 Lactic Acid 2.00 mmol/L (0.7-2.0) 06/27/18 18:06 Calcium 9.5 mg/dL (8.4-10.2) 06/30/18 05:10 Phosphorus 5.70 mg/dL (2.5-4.5) H 06/29/18 06:23 Magnesium 2.00 mg/dL (1.7-2.3) 06/28/18 05:09 Nutrition/Malnutrition Assess - Dietary Evaluation Nutrition/Malnutrition Findings: Nutrition Notes Start: 06/29/18 16:36 Freq: Status: Active Protocol: Document 06/29/18 16:36 OH (Rec: 06/29/18 16:36 OH [id number]) Nutrition Notes Initial or Follow up Brief Note Subjective/Other Information Pt. in dialysis at time of visit. Nutrition Intervention Follow-Up By: 06/30/18
[2018-06-30] MEDS: ROCEPHIN/NS 2 GM/100 ML 2 GM/100 ML BAG IV SCH (17:59)
[2018-07-01] MEDS: NORCO 5/325 PO PRN ×2 (00:05→22:37)
[2018-07-01] MEDS: HEPARIN SUB-Q SCH ×3 (05:28→22:37)
[2018-07-01 06:35] LABS: Hematocrit 27.3 % (35.5-45.6); Mean Corpuscular HGB Conc 33 % (32-34); Mean Corpuscular Volume 90 fl (84-94); Platelet Count 241 K/mm3 (140-440); Red Blood Count 3.03 M/mm3 (3.65-5.03); Red Cell Distribution Width 16.6 % (13.2-15.2)
[2018-07-01 06:53] LABS: Calcium 10.1 mg/dL (8.4-10.2)
[2018-07-01] MEDS: RENVELA PO SCH ×3 (08:49→19:00)
[2018-07-01] MEDS: PROAMATINE PO SCH (10:00)
[2018-07-01] MEDS: Renal Caps PO SCH (10:00)
[2018-07-01] MEDS: ZITHROMAX PO SCH (10:00)
[2018-07-01] MEDS: PEPCID PO SCH (10:00)
--- NOTE | 2018-07-01 10:10 | Progress Note ---
Assessment and Plan Pneumonia: - On antibiotics, Nebs, steroids, oxygen ESRD on Hemodialysis: - HD today for clearance and volume removal - Continue midodrine for blood pressure support - Assess need for HD on daily basis - This pt undergoes outpatient HD at [facility] every MWF - Renally dose meds Hypotension, chronic: - Continue midodrine - Adjusted HD prescription to decreased dialysate temp, sodium modeling, longer HD treatment time, and PRN albumin to assist with hemodynamic stability during HD - UF as tolerated Anemia, normocytic: - Epogen dosing as needed Subjective Date of service: 07/01/18 Principal diagnosis: ESRD Interval history: denies acute issues overnight Objective - Vital Signs Vital signs: Vital Signs - 12hr 06/30/18 07/01/18 23:57 05:35 Temperature 97.6 F 98.6 F Pulse Rate 89 84 Respiratory 20 20 Rate Blood Pressure 139/80 130/76 O2 Sat by Pulse 97 99 Oximetry - General Appearance General appearance: well-developed, well-nourished, appears stated age EENT: ATNC, PERRL, mucous membranes moist Neck: no JVD, no carotid bruit Respiratory: Present: Clear to Ascultation. Absent: Rales, Ronchi Cardiology: regular, S1S2 Gastrointestinal: normoactive bowel sounds, no tenderness, no distended Integumentary: no rash, warm and dry Neurologic: no focal deficit, no asterixis, alert and oriented x3 Musculoskeletal: other (no edema in BLE) Psychiatric: mood/affect appropriate, cooperative - Lab 07/01/18 06:06 07/01/18 06:06 Most recent lab results Calcium 10.1 mg/dL (8.4-10.2) 07/01/18 06:06 Phosphorus 5.70 mg/dL (2.5-4.5) H 06/29/18 06:23 Magnesium 2.00 mg/dL (1.7-2.3) 06/28/18 05:09 Medications & Allergies - Medications Allergies/Adverse Reactions: Allergies No Known Allergies Allergy (Verified 08/16/16 14:35) Home Medications: Home Medications Medication Instructions Recorded Confirmed Last Taken Type Midodrine [Proamatine] 5 mg PO 3XW 08/16/16 06/28/18 08/16/16 06:30 History Sevelamer Carbonate [Renvela] 800 mg PO TIDWM 08/16/16 06/28/18 08/16/16 06:30 History Vit B Comp C/Folic Acid/Vit D3 1 each PO QDAY 08/16/16 06/28/18 08/16/16 06:30 History [Dialyvite 800 Plus D Wafer] Acetaminophen [Acetaminophen TAB] 650 mg PO Q4H PRN #30 tablet 10/28/17 06/28/18 Unknown Rx Famotidine [Pepcid] 20 mg PO QDAY #15 tablet 10/28/17 06/28/18 Unknown Rx HYDROcodone/APAP 5-325 [[place] 1 each PO Q6H PRN #15 tablet 10/28/17 06/28/18 Unknown Rx 5-325 mg TAB] Active Medications: Generic Name Dose Route Start Last Admin Trade Name Freq PRN Reason Stop Dose Admin Acetaminophen 650 mg 06/27/18 18:50 Tylenol PO Q4H PRN Pain MILD(1-3)/Fever >100.5/TOURE Acetaminophen/Hydrocodone Bitart 1 each 06/27/18 18:52 07/01/18 00:05 [place] 5/325 PO 1 each Q6H PRN Administration Pain, Moderate (4-6) Albuterol 2.5 mg 06/27/18 18:50 Proventil IH Q4H PRN Shortness Of Breath Azithromycin 500 mg 06/30/18 10:00 06/30/18 11:51 Zithromax PO 500 mg QDAY LILI Administration Famotidine 20 mg 06/28/18 10:00 06/30/18 11:51 Pepcid PO 20 mg QDAY LILI Administration Heparin Sodium (Porcine) 5,000 unit 06/29/18 22:00 07/01/18 05:28 Heparin SUB-Q 5,000 unit Q8HR LILI Administration Hydrocodone Bit/Homatropine Methylb 10 ml 06/27/18 20:21 06/28/18 18:19 Hydromet PO 10 ml Q6H PRN Administration Cough Ceftriaxone Sodium 2 gm in 100 mls @ 200 mls/hr 06/27/18 19:00 06/30/18 17:59 Rocephin/Ns 2 Gm/100 Ml IV 200 mls/hr Q24H LILI Administration Protocol Sodium Chloride 100 mls @ 999 mls/hr 06/28/18 13:37 Nacl 0.9% IV VIKRAM PRN Hypotension Midodrine 5 mg 06/29/18 10:00 06/29/18 09:15 Proamatine PO 5 mg MoWeFr LILI Administration Multivit/Ca Carb/B Cmplx/FA/Prenat 1 cap 06/28/18 10:00 06/30/18 11:51 Renal Caps PO 1 cap QDAY LILI Administration Ondansetron HCl 4 mg 06/27/18 18:50 Zofran IV Q8H PRN Nausea And Vomiting Sevelamer Carbonate 800 mg 06/28/18 08:00 07/01/18 08:49 Renvela PO 800 mg TIDWM LILI Administration Sodium Chloride 10 ml 06/27/18 22:00 06/30/18 21:26 Sodium Chloride Flush Syringe 10 Ml IV 10 ml BID LILI Administration Sodium Chloride 10 ml 06/27/18 18:50 Sodium Chloride Flush Syringe 10 Ml IV PRN PRN LINE FLUSH
--- NOTE | 2018-07-01 12:20 | Progress Note ---
Assessment and Plan Assessment and plan: Patient is a 62 yo man with a history of ESRD on HD (M,W,F), GERD, Nicotine Dependence and hypertension who [facility] with sob and productive cough. * 2 view CXR Impression: new lateral right cp angle scar vs small effusion also tracking in the minor fissure, new patchy and interstitial opacity in the left lung base may be atelectasis, edema and/or pneumonitis -Sepsis Pneumonia, poa: follow culture, careful with ivf due to ESRD -Acute hypoxic respiratory, poa: trying to wean off o2 -LLL pneumonia, sputum uncollected spoke with nurse, then the order was auto- cancelled by [employer] EMR: treat with abx -ESRD on hemodialysis: consulted nephrology -Metabolic acidosis, treat with hemodialysis: monitor closely -Tobacco dependency: family and marriage counsellor on stopping -Malnutrition, mild: consulted Natural Resources Specialist -DVT prophylaxis: scd Pulse ox dropped all the way down to 79% walking on RA, increased back to 90% on 2liters sputum culture was ordered by not collected d/c next 1-2 days with or without O2 History Interval history: Patient was seen and examined. Follow-up on current diagnosis of sob and cough with pneumonia, doing slightly better. Overnight uneventful. Patient denies any chest pain, nausea/vomiting or severe headaches. Imaging, nursing note, chart, labs and old chart reviewed. Discussed with patient. Hospitalist Physical - Physical exam Narrative exam: Gen: cachetic, bmi 18.3, NAD, Awake, Alert, Orientated HEENT: NCAT, EOMI, PERRL, OP Clear Neck: supple, no adenopathy, no thyromegaly, no JVD CVS/Heart: RRR, normal S1S2, pulses present bilaterally Chest/Lungs: coarse bs bilateral, diminished bs bilaterally, Symmetrical chest expansion, good air entry bilaterally GI/Abdomen: soft, NTND, good bowel sounds, no guarding or rebound /Bladder: no suprapubic tenderness, no CVA or paraspinal tenderness Extermity/Skin: no c/c/e, no obvious rash MSK: FROM x 4 Neuro: CN 2-12 grossly intact, no new focal deficits Psych: calm - Constitutional Vitals: Temp Pulse Resp BP Pulse Ox 98.0 F 76 16 122/71 99 07/01/18 10:30 07/01/18 11:15 07/01/18 10:30 07/01/18 11:15 07/01/18 05:35 General appearance: Present: mild distress, cachectic Results - Labs CBC & Chem 7: 07/01/18 06:06 07/01/18 06:06 Labs: Laboratory Last Values WBC 4.9 K/mm3 (4.5-11.0) 07/01/18 06:06 RBC 3.03 M/mm3 (3.65-5.03) L 07/01/18 06:06 Hgb 9.0 gm/dl (11.8-15.2) L 07/01/18 06:06 Hct 27.3 % (35.5-45.6) L 07/01/18 06:06 MCV 90 fl (84-94) 07/01/18 06:06 MCH 30 pg (28-32) 07/01/18 06:06 MCHC 33 % (32-34) 07/01/18 06:06 RDW 16.6 % (13.2-15.2) H 07/01/18 06:06 Plt Count 241 K/mm3 (140-440) 07/01/18 06:06 Lymph % (Auto) 10.2 % (13.4-35.0) L 06/27/18 17:32 Saline % (Auto) 7.0 % (0.0-7.3) 06/27/18 17:32 Eos % (Auto) 0.9 % (0.0-4.3) 06/27/18 17:32 Baso % (Auto) 0.5 % (0.0-1.8) 06/27/18 17:32 Lymph # 1.2 K/mm3 (1.2-5.4) 06/27/18 17:32 Saline # 0.8 K/mm3 (0.0-0.8) 06/27/18 17:32 Eos # 0.1 K/mm3 (0.0-0.4) 06/27/18 17:32 Baso # 0.1 K/mm3 (0.0-0.1) 06/27/18 17:32 Seg Neutrophils % 81.4 % (40.0-70.0) H 06/27/18 17:32 Seg Neutrophils # 9.3 K/mm3 (1.8-7.7) H 06/27/18 17:32 Sodium 140 mmol/L (137-145) 07/01/18 06:06 Potassium 4.1 mmol/L (3.6-5.0) 07/01/18 06:06 Chloride 96.2 mmol/L (98-107) L 07/01/18 06:06 Carbon Dioxide 28 mmol/L (22-30) 07/01/18 06:06 Anion Gap 20 mmol/L 07/01/18 06:06 BUN 35 mg/dL (9-20) H 07/01/18 06:06 Creatinine 7.0 mg/dL (0.8-1.5) H 07/01/18 06:06 Estimated GFR 10 ml/min 07/01/18 06:06 BUN/Creatinine Ratio 5 % 07/01/18 06:06 Glucose 114 mg/dL (75-100) H 07/01/18 06:06 Lactic Acid 2.00 mmol/L (0.7-2.0) 06/27/18 18:06 Calcium 10.1 mg/dL (8.4-10.2) 07/01/18 06:06 Phosphorus 5.70 mg/dL (2.5-4.5) H 06/29/18 06:23 Magnesium 2.00 mg/dL (1.7-2.3) 06/28/18 05:09 Nutrition/Malnutrition Assess - Dietary Evaluation Nutrition/Malnutrition Findings: Nutrition Notes Start: 06/29/18 16:36 Freq: Status: Active Protocol: Document 06/30/18 15:08 LM (Rec: 06/30/18 15:35 LM [id number]) Co-Sign 06/30/18 15:08 LP Nutrition Notes Initial or Follow up Assessment Current Diagnosis CKD (stage V CKD) Other Pertinent Diagnosis Pneumonia, DVT, Nicotine dependence, DVT Current Diet Cardiac Labs/Tests BUN: 22 Creat: 5.5 Pertinent Medications Reviewed Height 6 ft 1 in Weight 63 kg Usual Body Weight 70.45 kg [place] Body Weight (lbs) 184.0 BMI 18.3 Weight Status Emaciated Subjective/Other Information Pt stated his appetite is getting better. Pt ate eggs and pancakes for breakfast this morning. Pt stated he noticed he recently has lost about 10 lb. Noticed muscle wasting in the arms and shoulders. Offered pt Nepro and pt accepted. Burn Absent Trauma Absent #1 Nutrition Diagnosis Malnutrition Etiology poor appetite As Evidenced by Signs and Symptoms Muscle wasting and 12 lb weight loss per pt Is patient on ventilator? No Is Patient Ambulatory and/or Out of Bed No REE-([facility]-confined to bed) 1779.948 Kcal/Kg value to use for calculation 35 Approximate Energy Requirements Using 2205 kcal/Kg Additional Notes Adj BW 73.5 kg Protein: 88-110 g (1.2-1.5 g/ kg) Fluid needs: 1-1.5 L/day or per MD Malnutrition Assessment Food and Nutrition Intake (non-severe) <75% Estimated Energy Requirement >7 days Body Fat Depletion (Severe) Mod to Severe Depletion Is clinical finding present on admission Yes ? Nutrition Intervention Change Diet Order: Renal diet Add Supplement/Snack (indicate name/kcal Nepro Vanilla once a day /protein ) Goal #1 Meet at least 75% of Energy and protein needs Goal #2 Weight gain/maintenance Anticipated Discharge Needs: Renal diet Follow-Up By: 07/03/18 Additional Comments F/U for PO/ONS intakes
[2018-07-01] MEDS ORDERED: NACL 0.9 (PRIMING MACHINE ONLY DIALYSIS) MC ONE ×2 (15:48→16:52)
[2018-07-01] MEDS: ROCEPHIN/NS 2 GM/100 ML 2 GM/100 ML BAG IV SCH (18:48)
[2018-07-01] MEDS: SODIUM CHLORIDE FLUSH SYRINGE 10 ML IV SCH ×2 (19:00→22:38)
[2018-07-02] MEDS: HEPARIN SUB-Q SCH ×3 (05:37→22:35)
[2018-07-02 07:03] LABS: Hematocrit 29.1 % (35.5-45.6); Hemoglobin 9.6 gm/dl (11.8-15.2); Mean Corpuscular HGB Conc 33 % (32-34); Mean Corpuscular Volume 90 fl (84-94); Platelet Count 279 K/mm3 (140-440); Red Blood Count 3.23 M/mm3 (3.65-5.03); Red Cell Distribution Width 16.7 % (13.2-15.2)
[2018-07-02 07:25] LABS: Calcium 9.5 mg/dL (8.4-10.2)
[2018-07-02] MEDS: RENVELA PO SCH ×3 (09:02→18:08)
[2018-07-02] MEDS: PEPCID PO SCH (10:31)
[2018-07-02] MEDS: Renal Caps PO SCH (10:31)
[2018-07-02] MEDS: ZITHROMAX PO SCH (10:32)
[2018-07-02] MEDS: SODIUM CHLORIDE FLUSH SYRINGE 10 ML IV SCH ×2 (10:32→22:34)
--- NOTE | 2018-07-02 11:15 | Progress Note ---
Assessment and Plan Pneumonia: - On antibiotics, Nebs, steroids, oxygen ESRD on Hemodialysis: - no indication for HD today - Continue midodrine for blood pressure support - Assess need for HD on daily basis - This pt undergoes outpatient HD at [facility] every MWF - Renally dose meds Hypotension, chronic: - Continue midodrine - Adjusted HD prescription to decreased dialysate temp, sodium modeling, longer HD treatment time, and PRN albumin to assist with hemodynamic stability during HD - UF as tolerated Anemia, normocytic: - Epogen dosing as needed Subjective Date of service: 07/02/18 Principal diagnosis: ESRD Interval history: tolerated HD yesterday Objective - Vital Signs Vital signs: Vital Signs - 12hr 07/01/18 07/01/18 07/02/18 23:37 23:50 05:57 Temperature 97.0 F L 97.7 F Pulse Rate 94 H 83 Respiratory 18 16 18 Rate Blood Pressure 97/61 115/67 O2 Sat by Pulse 97 95 Oximetry 07/02/18 09:00 Temperature Pulse Rate Respiratory 18 Rate Blood Pressure O2 Sat by Pulse Oximetry - General Appearance General appearance: well-developed, well-nourished, appears stated age EENT: ATNC, PERRL, mucous membranes moist Neck: no JVD, no thyromegaly Respiratory: Present: Clear to Ascultation. Absent: Rales, Ronchi Cardiology: regular, S1S2 Gastrointestinal: normoactive bowel sounds, no tenderness, no distended Integumentary: no rash, warm and dry Neurologic: no focal deficit, no asterixis, alert and oriented x3 Musculoskeletal: other (no edema in BLE) Psychiatric: mood/affect appropriate, cooperative - Lab 07/02/18 06:49 07/02/18 06:49 Most recent lab results Calcium 9.5 mg/dL (8.4-10.2) 07/02/18 06:49 Phosphorus 5.70 mg/dL (2.5-4.5) H 06/29/18 06:23 Magnesium 2.00 mg/dL (1.7-2.3) 06/28/18 05:09 Medications & Allergies - Medications Allergies/Adverse Reactions: Allergies No Known Allergies Allergy (Verified 08/16/16 14:35) Home Medications: Home Medications Medication Instructions Recorded Confirmed Last Taken Type Midodrine [Proamatine] 5 mg PO 3XW 08/16/16 06/28/18 08/16/16 06:30 History Sevelamer Carbonate [Renvela] 800 mg PO TIDWM 08/16/16 06/28/18 08/16/16 06:30 History Vit B Comp C/Folic Acid/Vit D3 1 each PO QDAY 08/16/16 06/28/18 08/16/16 06:30 History [Dialyvite 800 Plus D Wafer] Acetaminophen [Acetaminophen TAB] 650 mg PO Q4H PRN #30 tablet 10/28/17 06/28/18 Unknown Rx Famotidine [Pepcid] 20 mg PO QDAY #15 tablet 10/28/17 06/28/18 Unknown Rx HYDROcodone/APAP 5-325 [[place] 1 each PO Q6H PRN #15 tablet 10/28/17 06/28/18 Unknown Rx 5-325 mg TAB] Active Medications: Generic Name Dose Route Start Last Admin Trade Name Freq PRN Reason Stop Dose Admin Acetaminophen 650 mg 06/27/18 18:50 Tylenol PO Q4H PRN Pain MILD(1-3)/Fever >100.5/TOURE Acetaminophen/Hydrocodone Bitart 1 each 06/27/18 18:52 07/01/18 22:37 [place] 5/325 PO 1 each Q6H PRN Administration Pain, Moderate (4-6) Albuterol 2.5 mg 06/27/18 18:50 Proventil IH Q4H PRN Shortness Of Breath Azithromycin 500 mg 06/30/18 10:00 07/02/18 10:32 Zithromax PO 500 mg QDAY LILI Administration Famotidine 20 mg 06/28/18 10:00 07/02/18 10:31 Pepcid PO 20 mg QDAY LILI Administration Heparin Sodium (Porcine) 5,000 unit 06/29/18 22:00 07/02/18 05:37 Heparin SUB-Q 5,000 unit Q8HR LILI Administration Hydrocodone Bit/Homatropine Methylb 10 ml 06/27/18 20:21 06/28/18 18:19 Hydromet PO 10 ml Q6H PRN Administration Cough Ceftriaxone Sodium 2 gm in 100 mls @ 200 mls/hr 06/27/18 19:00 07/01/18 18:48 Rocephin/Ns 2 Gm/100 Ml IV 200 mls/hr Q24H LILI Administration Protocol Sodium Chloride 100 mls @ 999 mls/hr 06/28/18 13:37 Nacl 0.9% IV VIKRAM PRN Hypotension Midodrine 5 mg 06/29/18 10:00 07/01/18 10:00 Proamatine PO Not Given MoWeFr LILI Multivit/Ca Carb/B Cmplx/FA/Prenat 1 cap 06/28/18 10:00 07/02/18 10:31 Renal Caps PO 1 cap QDAY LILI Administration Ondansetron HCl 4 mg 06/27/18 18:50 Zofran IV Q8H PRN Nausea And Vomiting Sevelamer Carbonate 800 mg 06/28/18 08:00 07/02/18 09:02 Renvela PO 800 mg TIDWM LILI Administration Sodium Chloride 10 ml 06/27/18 22:00 07/02/18 10:32 Sodium Chloride Flush Syringe 10 Ml IV 10 ml BID LILI Administration Sodium Chloride 10 ml 06/27/18 18:50 Sodium Chloride Flush Syringe 10 Ml IV PRN PRN LINE FLUSH
[2018-07-02] MEDS ORDERED: PROCRIT IV PRN (11:18)
--- NOTE | 2018-07-02 14:19 | Progress Note ---
Assessment and Plan Assessment and Plan Assessment and plan: Patient is a 62 yo man with a history of ESRD on HD (M,W,F), GERD, Nicotine Dependence and hypertension who presents to [facility] ED with sob and productive cough. * 2 view CXR Impression: new lateral right cp angle scar vs small effusion also tracking in the minor fissure, new patchy and interstitial opacity in the left lung base may be atelectasis, edema and/or pneumonitis -Sepsis Pneumonia, poa: follow culture, careful with ivf due to ESRD -Acute hypoxic respiratory, poa: trying to wean off o2 -LLL pneumonia, sputum uncollected spoke with nurse, then the order was auto-cancelled by [employer] EMR: treat with abx -ESRD on hemodialysis: consulted nephrology -Metabolic acidosis, treat with hemodialysis: monitor closely -Tobacco dependency: loan counselor on stopping -Malnutrition, mild: consulted Bosom Presser -DVT prophylaxis: scd COPD--Patient has chronic resp failure and had been smoking for last 20 years .Also exposed to second hand smoke from his daughter for many years. Pulse ox dropped all the way down to 79% walking on RA, increased back to 90% on 2liters sputum culture was ordered by not collected d/c next 1-2 days with or without O2 Will arrange for home O2 - Patient Problems (1) COPD (chronic obstructive pulmonary disease) Current Visit: Yes Status: Chronic Qualifiers: COPD type: unspecified COPD Qualified Code(s): J44.9 - Chronic obstructive pulmonary disease, unspecified Plan to address problem: Patient needs Home O2 Subjective Date of service: 07/02/18 Principal diagnosis: ESRD Interval history: Doing better Objective - Constitutional Vitals: Vital Signs - 12hr 07/02/18 07/02/18 05:57 09:00 Temperature 97.7 F Pulse Rate 83 Respiratory 18 18 Rate Blood Pressure 115/67 O2 Sat by Pulse 95 Oximetry General appearance: Present: no acute distress, well-nourished - EENT Eyes: PERRL, EOM intact ENT: hearing intact, clear oral mucosa Ears: bilateral: normal - Neck Neck: supple, normal ROM - Respiratory Respiratory effort: normal Respiratory: bilateral: CTA - Breasts Breasts: normal - Cardiovascular Heart rate: 78 Rhythm: regular Heart Sounds: Present: S1 & S2. Absent: gallop, rub Extremities: no ischemia, pulses intact, No edema, normal color, Full ROM - Gastrointestinal General gastrointestinal: Present: soft, non-tender, non-distended, normal bowel sounds - Genitourinary Male genitourinary: normal - Integumentary Integumentary: clear, warm, dry - Musculoskeletal Musculoskeletal: 1, strength equal bilaterally - Neurologic Neurologic: moves all extremities - Psychiatric Psychiatric: memory intact, appropriate mood/affect, intact judgment & insight - Labs CBC & Chem 7: 07/02/18 06:49 07/02/18 06:49 Labs: Abnormal lab results 07/02/18 07/02/18 Range/Units 06:49 06:49 RBC 3.23 L (3.65-5.03) M/mm3 Hgb 9.6 L (11.8-15.2) gm/dl Hct 29.1 L (35.5-45.6) % RDW 16.7 H (13.2-15.2) % Chloride 96.8 L (98-107) mmol/L BUN 22 H (9-20) mg/dL Creatinine 5.3 H (0.8-1.5) mg/dL Glucose 111 H (75-100) mg/dL
[2018-07-02] MEDS: ROCEPHIN/NS 2 GM/100 ML 2 GM/100 ML BAG IV SCH (18:10)
[2018-07-03 05:46] LABS: Hematocrit 28.5 % (35.5-45.6); Hemoglobin 9.4 gm/dl (11.8-15.2); Mean Corpuscular HGB Conc 33 % (32-34); Mean Corpuscular Volume 91 fl (84-94); Platelet Count 266 K/mm3 (140-440); Red Blood Count 3.13 M/mm3 (3.65-5.03); Red Cell Distribution Width 16.9 % (13.2-15.2)
[2018-07-03 06:07] LABS: Calcium 9.6 mg/dL (8.4-10.2)
[2018-07-03] MEDS: HEPARIN SUB-Q SCH ×2 (06:47→14:33)
[2018-07-03] MEDS: RENVELA PO SCH ×2 (09:00→14:33)
--- NOTE | 2018-07-03 10:54 | Progress Note ---
Assessment and Plan Pneumonia: - On antibiotics, Nebs, steroids, oxygen ESRD on Hemodialysis: - HD today for clearance and volume removal - Continue midodrine for blood pressure support - Assess need for HD on daily basis - This pt undergoes outpatient HD at [facility] every MWF - Renally dose meds Hypotension, chronic: - Continue midodrine - Adjusted HD prescription to decreased dialysate temp, sodium modeling, longer HD treatment time, and PRN albumin to assist with hemodynamic stability during HD - UF as tolerated Anemia, normocytic: - Epogen dosing as needed Subjective Date of service: 07/03/18 Principal diagnosis: ESRD Interval history: seen during HD, tolerating Objective - Vital Signs Vital signs: Vital Signs - 12hr 07/03/18 07/03/18 07/03/18 05:43 09:20 09:30 Temperature 97.4 F L 97.4 F L Pulse Rate 77 73 73 Respiratory 16 18 Rate Blood Pressure 115/70 136/81 136/80 O2 Sat by Pulse 96 Oximetry 07/03/18 07/03/18 07/03/18 09:45 10:00 10:15 Temperature Pulse Rate 69 70 64 Respiratory Rate Blood Pressure 132/75 125/70 122/69 O2 Sat by Pulse Oximetry 07/03/18 10:30 Temperature Pulse Rate 73 Respiratory Rate Blood Pressure 125/68 O2 Sat by Pulse Oximetry - General Appearance General appearance: well-developed, well-nourished EENT: ATNC, PERRL, mucous membranes moist Neck: no JVD, no carotid bruit Respiratory: Present: Clear to Ascultation. Absent: Rales, Ronchi Cardiology: regular, S1S2 Gastrointestinal: normoactive bowel sounds, no tenderness, no distended Integumentary: no rash, warm and dry Neurologic: no focal deficit, no asterixis, alert and oriented x3 Musculoskeletal: other (no edema in BLE) Psychiatric: cooperative - Lab 07/03/18 04:52 07/03/18 04:52 Most recent lab results Calcium 9.6 mg/dL (8.4-10.2) 07/03/18 04:52 Phosphorus 5.70 mg/dL (2.5-4.5) H 06/29/18 06:23 Magnesium 2.00 mg/dL (1.7-2.3) 06/28/18 05:09 Medications & Allergies - Medications Allergies/Adverse Reactions: Allergies No Known Allergies Allergy (Verified 08/16/16 14:35) Home Medications: Home Medications Medication Instructions Recorded Confirmed Last Taken Type Midodrine [Proamatine] 5 mg PO 3XW 08/16/16 06/28/18 08/16/16 06:30 History Sevelamer Carbonate [Renvela] 800 mg PO TIDWM 08/16/16 06/28/18 08/16/16 06:30 History Vit B Comp C/Folic Acid/Vit D3 1 each PO QDAY 08/16/16 06/28/18 08/16/16 06:30 History [Dialyvite 800 Plus D Wafer] Acetaminophen [Acetaminophen TAB] 650 mg PO Q4H PRN #30 tablet 10/28/17 06/28/18 Unknown Rx Famotidine [Pepcid] 20 mg PO QDAY #15 tablet 10/28/17 06/28/18 Unknown Rx HYDROcodone/APAP 5-325 [[place] 1 each PO Q6H PRN #15 tablet 10/28/17 06/28/18 Unknown Rx 5-325 mg TAB] Active Medications: Generic Name Dose Route Start Last Admin Trade Name Freq PRN Reason Stop Dose Admin Acetaminophen 650 mg 06/27/18 18:50 Tylenol PO Q4H PRN Pain MILD(1-3)/Fever >100.5/TOURE Acetaminophen/Hydrocodone Bitart 1 each 06/27/18 18:52 07/01/18 22:37 [place] 5/325 PO 1 each Q6H PRN Administration Pain, Moderate (4-6) Albuterol 2.5 mg 06/27/18 18:50 Proventil IH Q4H PRN Shortness Of Breath Azithromycin 500 mg 06/30/18 10:00 07/02/18 10:32 Zithromax PO 500 mg QDAY LILI Administration Epoetin Per 10,000 unit 07/02/18 11:18 Procrit IV VIKRAM PRN hemodialysis Famotidine 20 mg 06/28/18 10:00 07/02/18 10:31 Pepcid PO 20 mg QDAY LILI Administration Heparin Sodium (Porcine) 5,000 unit 06/29/18 22:00 07/03/18 06:47 Heparin SUB-Q Not Given Q8HR LILI Hydrocodone Bit/Homatropine Methylb 10 ml 06/27/18 20:21 06/28/18 18:19 Hydromet PO 10 ml Q6H PRN Administration Cough Ceftriaxone Sodium 2 gm in 100 mls @ 200 mls/hr 06/27/18 19:00 07/02/18 18:10 Rocephin/Ns 2 Gm/100 Ml IV 200 mls/hr Q24H LILI Administration Protocol Sodium Chloride 100 mls @ 999 mls/hr 06/28/18 13:37 Nacl 0.9% IV VIKRAM PRN Hypotension Midodrine 5 mg 06/29/18 10:00 07/01/18 10:00 Proamatine PO Not Given MoWeFr LILI Multivit/Ca Carb/B Cmplx/FA/Prenat 1 cap 06/28/18 10:00 07/02/18 10:31 Renal Caps PO 1 cap QDAY LILI Administration Ondansetron HCl 4 mg 06/27/18 18:50 Zofran IV Q8H PRN Nausea And Vomiting Sevelamer Carbonate 800 mg 06/28/18 08:00 07/02/18 18:08 Renvela PO 800 mg TIDWM LILI Administration Sodium Chloride 10 ml 06/27/18 22:00 07/02/18 22:34 Sodium Chloride Flush Syringe 10 Ml IV 10 ml BID LILI Administration Sodium Chloride 10 ml 06/27/18 18:50 Sodium Chloride Flush Syringe 10 Ml IV PRN PRN LINE FLUSH
[2018-07-03] MEDS ORDERED: NACL 0.9 (PRIMING MACHINE ONLY DIALYSIS) MC ONE (13:24)
[2018-07-03] MEDS: PEPCID PO SCH (14:30)
[2018-07-03] MEDS: Renal Caps PO SCH (14:31)
[2018-07-03] MEDS: PROAMATINE PO SCH (14:31)
[2018-07-03] MEDS: SODIUM CHLORIDE FLUSH SYRINGE 10 ML IV SCH (14:32)
[2018-07-03] MEDS: ZITHROMAX PO SCH (14:32)
--- NOTE | 2018-07-03 15:08 | Discharge Summary ---
Providers - Providers Date of Admission: 06/27/18 18:50 Date of discharge: 07/03/18 Attending physician: MARII GOSS 06/27/18 20:17 Consult to Physician [CONS] Routine Comment: Consulting Provider: OLIVIA TO Physician Instructions: Reason For Exam: esrd 06/28/18 16:56 Consult to Dietitian/Nutrition [CONS] Routine Physician Instructions: Reason For Exam: Reason for Consult: Malnutrition Primary care physician: INTERNAL MEDICINE PHYSICIAN Hospitalization Condition: Stable Hospital course: Assessment and Plan Assessment and plan: Patient is a 62 yo man with a history of ESRD on HD (M,W,F), GERD, Nicotine Dependence and hypertension who presents to [facility] ED with sob and productive cough. * 2 view CXR Impression: new lateral right cp angle scar vs small effusion also tracking in the minor fissure, new patchy and interstitial opacity in the left lung base may be atelectasis, edema and/or pneumonitis -Sepsis Pneumonia, poa: follow culture, careful with ivf due to ESRD -Acute hypoxic respiratory, poa: trying to wean off o2 -LLL pneumonia, sputum uncollected spoke with nurse, then the order was auto- cancelled by [employer] EMR: treat with abx -ESRD on hemodialysis: consulted nephrology -Metabolic acidosis, treat with hemodialysis: monitor closely -Tobacco dependency: student services counselor on stopping -Malnutrition, mild: consulted Manager Education -DVT prophylaxis: scd COPD--Patient has chronic resp failure and had been smoking for last 20 years .Also exposed to second hand smoke from his daughter for many years. Pulse ox dropped all the way down to 79% walking on RA, increased back to 90% on 2liters Home O2 arranged Disposition: TO HOME OR SELFCARE - Discharge Diagnoses (1) COPD (chronic obstructive pulmonary disease) Status: Chronic Qualifiers: COPD type: unspecified COPD Qualified Code(s): J44.9 - Chronic obstructive pulmonary disease, unspecified Core Measure Documentation - Palliative Care Palliative Care/ Comfort Measures: Not Applicable - Core Measures Any of the following diagnoses?: none Exam - Constitutional Vitals: Temp Pulse Resp BP Pulse Ox 98.3 F 76 16 129/64 96 07/03/18 13:29 07/03/18 13:29 07/03/18 13:29 07/03/18 13:29 07/03/18 05:43 General appearance: Present: no acute distress, well-nourished - EENT Eyes: Present: PERRL ENT: hearing intact, clear oral mucosa - Neck Neck: Present: supple, normal ROM - Respiratory Respiratory effort: normal Respiratory: bilateral: CTA - Cardiovascular Heart rate: 76 Rhythm: regular Heart Sounds: Present: S1 & S2. Absent: rub, click - Extremities Extremities: no ischemia, pulses intact, pulses symmetrical, No edema Peripheral Pulses: within normal limits - Abdominal General gastrointestinal: Present: soft, non-tender, non-distended, normal bowel sounds Male genitourinary: Present: normal - Integumentary Integumentary: Present: clear, warm, dry - Musculoskeletal Musculoskeletal: gait normal, strength equal bilaterally - Psychiatric Psychiatric: appropriate mood/affect, intact judgment & insight - Neurologic Neurologic: CNII-XII intact, moves all extremities - Allied Health Allied health notes reviewed: nursing, case management Plan Activity: no restrictions Diet: renal Special Instructions: smoking cessation Follow up with: REGULO RAMIREZ MD [Primary Care Provider] - 3-5 Days OLIVIA TO MD [Staff Physician] - 7 Days
[2018-07-03 16:19] VITALS: BP 116/64
== END 2018-07-03 16:45 | disposition home or self-care (01) | DRG 871 ==
LOC: ED 14:42 → 3A 18:50
PROVIDERS: ADMIT Internal Medicine; ATTEND Internal Medicine
PROC: 5A1D70Z Performance of Urinary Filtration, Intermittent, Less than 6 Hours Per Day (ICD-10-PCS; principal; 2018-06-29)
PROC: 5A1D70Z Performance of Urinary Filtration, Intermittent, Less than 6 Hours Per Day (ICD-10-PCS; 2018-07-01)
PROC: 5A1D70Z Performance of Urinary Filtration, Intermittent, Less than 6 Hours Per Day (ICD-10-PCS; 2018-07-03)
DX: A41.9 Sepsis, unspecified organism (principal); N18.6 End stage renal disease; J18.1 Lobar pneumonia, unspecified organism; J96.21 Acute and chronic respiratory failure with hypoxia; F17.213 Nicotine dependence, cigarettes, with withdrawal; E44.1 Mild protein-calorie malnutrition; Z68.1 Body mass index [BMI] 19.9 or less, adult; J44.0 Chronic obstructive pulmonary disease with (acute) lower respiratory infection; K21.9 Gastro-esophageal reflux disease without esophagitis; F17.210 Nicotine dependence, cigarettes, uncomplicated; E87.6 Hypokalemia; D64.9 Anemia, unspecified; Z99.2 Dependence on renal dialysis; Z95.0 Presence of cardiac pacemaker; Z79.899 Other long term (current) drug therapy
CPT/HCPCS: 36415; 71046; 80048; 82140; 83735; 84100; 85025; 85027; 87040; 94760; G0378; J0456; J0696; J0885; J1644; J3475; J7030; J7050

== ENCOUNTER 2018-07-19 21:42 | Emergency (ER) | payer OTHER, MEDICARE ==
[2018-07-20] MEDS ORDERED: NORCO 5/325 PO STA (01:17)
--- NOTE | 2018-07-20 02:11 | XRay Report ---
FINAL REPORT EXAM: XR SPINE LUMBOSACRAL 2-3V HISTORY: LUMBAR PAIN TECHNIQUE: 3 views of the lumbar spine PRIORS: None. FINDINGS: The lumbar vertebral bodies are normal in height. Vertebral alignment is normal. There are flowing an terior syndesmophytes from T11 through L2. There is mild loss of disc height at L1-2. There is anteri or endplate osteophyte formation at L3-4 and L4-5 and L5-6. There is mild loss of disc height at L3-4 and moderate loss of disc height at L L4-5. There is vacuum disc at L5-S1. The soft tissues are unr emarkable. IMPRESSION: Findings are consistent with DISH and degenerative disc disease of the lower thoracic and lumbar spin e.
--- NOTE | 2018-07-20 02:18 | XRay Report ---
FINAL REPORT PROCEDURE: XR SPINE CERVICAL 2-3V TECHNIQUE: Cervical spine radiographs, minimum of four views, including AP, lateral and bilateral ob lique projections. HISTORY: neck pain COMPARISON: No prior studies are available for comparison. FINDINGS: There is no acute fracture or malalignment. There is reversal of cervical lordosis. There is bony fus ion of C3 through C7. There is multilevel facet arthropathy. There ossification of the interspinous l igament at C3 through C6. The prevertebral soft tissues are normal in thickness. IMPRESSION: There are chronic changes as described. There is no acute fracture or malalignment.
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
[2018-07-20 04:25] VITALS: BP 131/75
== END 2018-07-20 04:25 | disposition home or self-care (01) ==
LOC: ED 21:42
DX: M54.2 Cervicalgia (principal); M54.5 Low back pain; K21.9 Gastro-esophageal reflux disease without esophagitis; M19.90 Unspecified osteoarthritis, unspecified site; J44.9 Chronic obstructive pulmonary disease, unspecified; N18.6 End stage renal disease; Z99.2 Dependence on renal dialysis; Z87.01 Personal history of pneumonia (recurrent); V89.2XXA Person injured in unspecified motor-vehicle accident, traffic, initial encounter; Y93.89 Activity, other specified; Y92.488 Other paved roadways as the place of occurrence of the external cause; Y99.8 Other external cause status
CPT/HCPCS: 72040; 72100; 99283

== ENCOUNTER 2019-01-06 22:39 | Emergency (ER) | payer MEDICARE ==
[2019-01-06] MEDS ORDERED: NACL 0.9% IR ONE (23:09)
[2019-01-06 23:35] LABS: Basophils # (Auto) 0.1 K/mm3 (0.0-0.1); Basophils % (Auto) 0.8 % (0.0-1.8); Eosinophils # (Auto) 0.1 K/mm3 (0.0-0.4); Eosinophils % (Auto) 1.6 % (0.0-4.3); Hematocrit 36.1 % (35.5-45.6); Hemoglobin 11.8 gm/dl (11.8-15.2); Lymphocytes # (Auto) 0.9 K/mm3 (1.2-5.4); Lymphocytes % (Auto) 10.9 % (13.4-35.0); Mean Corpuscular HGB Conc 33 % (32-34); Mean Corpuscular Hemoglobin 30 pg (28-32); Mean Corpuscular Volume 93 fl (84-94); Monocytes # (Auto) 0.8 K/mm3 (0.0-0.8); Monocytes % (Auto) 9.4 % (0.0-7.3); Platelet Count 177 K/mm3 (140-440); Red Blood Count 3.89 M/mm3 (3.65-5.03)
[2019-01-06 23:45] LABS: INR 1.04 (0.87-1.13)
[2019-01-06 23:46] LABS: Partial Thromboplastin Time 31.2 Sec. (24.2-36.6)
[2019-01-06 23:50] LABS: Calcium 10.3 mg/dL (8.4-10.2)
[2019-01-07] MEDS ORDERED: NORCO 5/325 PO ONE (00:12)
[2019-01-07] MEDS ORDERED: XYLOCAINE 1%/ EPI 1:100,000 INFILTRATI ONE (00:26)
--- NOTE | 2019-01-07 00:45 | XRay Report ---
LEFT FEMUR, 4 VIEWS 01/06/2019 INDICATION / CLINICAL INFORMATION: Left leg pain.. COMPARISON: None available. FINDINGS: No fracture or dislocation. Signer Name: Merlin Morales MD Signed: 01/07/2019 12:40 AM Workstation Name: [id number]
--- NOTE | 2019-01-07 00:56 | Cat Scan Report ---
CT head/brain wo con INDICATION / CLINICAL INFORMATION: fall, head injury, scalp laceratoin. TECHNIQUE: All CT scans at this location are performed using CT dose reduction for ALARA by means of automated e xposure control. COMPARISON: None available. FINDINGS: No intracranial hemorrhage or evidence of subdural hematoma. No evidence of territorial infarction or mass effect. Basilar cisterns are normal. Generalized slight prominence of the ventricular system is noted with deepening of cortical sulci anton aterally. There is a right posterior parietal/occipital scalp hematoma. There is no evidence of underlying skull fracture. The orbits and paranasal sinuses appear intact. There is a mucosal retention cyst in the right sphenoid sinus. IMPRESSION: 1. No acute intracranial abnormalities. 2. Mild involutional changes. 3. Right sphenoid sinus disease. Signer Name: Merlin Morales MD Signed: 01/07/2019 12:52 AM Workstation Name: [id number]
[2019-01-07] MEDS ORDERED: KIONEX PO ONE (01:01)
[2019-01-07] MEDS ORDERED: BOOSTRIX IM ONE (01:01)
[2019-01-07] MEDS ORDERED: HYDROGEN PEROXIDE ONE (01:16)
--- NOTE | 2019-01-07 01:18 | Emergency Department Report ---
<JEREMIAH LAWRENCE - Last Filed: 01/07/19 01:56> ED Fall HPI - General Chief Complaint: Fall Stated Complaint: FALL W/SMALL LACERATION TO HEAD Time Seen by Provider: 01/07/19 00:05 - Related Data Home Medications Medication Instructions Recorded Confirmed Last Taken Vit B Comp C/Folic Acid/Vit D3 1 each PO QDAY 08/16/16 06/28/18 08/16/16 06:30 [Dialyvite 800 Plus D Wafer] Previous Rx's Medication Instructions Recorded Last Taken Type Acetaminophen [Acetaminophen TAB] 650 mg PO Q4H PRN #30 tablet 10/28/17 Unknown Rx HYDROcodone/APAP 5-325 [[place] 1 each PO Q6H PRN #15 tablet 10/28/17 Unknown Rx 5-325 mg TAB] Famotidine [Pepcid] 20 mg PO QDAY #30 tablet 07/03/18 Unknown Rx Folic Acid/Vit B Comp W-C [Renal 1 cap PO QDAY capsule 07/03/18 Unknown Rx Caps] HYDROcodone/HOMATROP 5-1.5 10 ml PO Q6H PRN #24 udc 07/03/18 Unknown Rx [HYDROcodone-Homatropin 5-1.5 mg per 5 ML] Midodrine [Proamatine] 5 mg PO MoWeFr #20 tablet 07/03/18 Unknown Rx Sevelamer Carbonate [Renvela] 800 mg PO TIDWM #90 tablet 07/03/18 Unknown Rx methOCARBAMOL [Robaxin TAB] 750 mg PO Q8H PRN #14 tablet 07/20/18 Unknown Rx Allergies Allergy/AdvReac Type Severity Reaction Status Date / Time No Known Allergies Allergy Verified 08/16/16 14:35 ED Past Medical Hx - Medications Home Medications: Home Medications Medication Instructions Recorded Confirmed Last Taken Type Vit B Comp C/Folic Acid/Vit D3 1 each PO QDAY 08/16/16 06/28/18 08/16/16 06:30 History [Dialyvite 800 Plus D Wafer] Acetaminophen [Acetaminophen TAB] 650 mg PO Q4H PRN #30 tablet 10/28/17 06/28/18 Unknown Rx HYDROcodone/APAP 5-325 [[place] 1 each PO Q6H PRN #15 tablet 10/28/17 06/28/18 Unknown Rx 5-325 mg TAB] Famotidine [Pepcid] 20 mg PO QDAY #30 tablet 07/03/18 Unknown Rx Folic Acid/Vit B Comp W-C [Renal 1 cap PO QDAY capsule 07/03/18 Unknown Rx Caps] HYDROcodone/HOMATROP 5-1.5 10 ml PO Q6H PRN #24 udc 07/03/18 Unknown Rx [HYDROcodone-Homatropin 5-1.5 mg per 5 ML] Midodrine [Proamatine] 5 mg PO MoWeFr #20 tablet 07/03/18 Unknown Rx Sevelamer Carbonate [Renvela] 800 mg PO TIDWM #90 tablet 07/03/18 Unknown Rx methOCARBAMOL [Robaxin TAB] 750 mg PO Q8H PRN #14 tablet 07/20/18 Unknown Rx - Laceration /Wound Repair Head Wound Location: head Wound Length (cm): 3 Wound's Depth, Shape: superficial Wound Explored: clean Irrigated w/ Saline (ccs): 40 Betadine Prep?: No Anesthesia: Lidocaine w/ Epi Volume Anesthetic (ccs): 1 Wound Debrided: minimal Wound Repaired With: sutures (Rafael x 4 edges well approximated all bleeding controlled ) Progress: 3 cm occipital scalp laceration wound cleaned with sterile saline solution and anesthesia with lidocaine with epi 1 mL, manually explored no foreign bodies on irrigated with 20 mL sterile saline and closed with rafael times edges were well approximated bleeding is controlled patient tolerated procedure with minimal distress patient given wound care instructions. ED Medical Decision Making - Lab Data Result diagrams: 01/06/19 23:17 01/06/19 23:17 ED Disposition Clinical Impression: Fall with injury, Scalp laceration, Contusion of left thigh, Hyperkalemia Disposition: DC-01 TO HOME OR SELFCARE Condition: Stable Instructions: Laceration (ED), Fall Prevention for Older Adults (ED), Minor Head Injury (ED), Hyperkalemia (ED), End-Stage Kidney Disease (ED) Additional Instructions: Take the medication as prescribed. Take the Kayexalate provided to encourage elimination of potassium. Follow up with your doctor or the clinic/doctor provided. Return if symptoms worsen as indicated by your discharge instructions. Rafael need removal in 5 days. You may return to the ER or follow up with your primary care doctor for staple removal. Referrals: your, primary are doctor [Other] - 3-5 Days CAPRICE,MOHAMAD M, MD [Staff Physician] - 3-5 Days <RAMIREZMARYYousuf Thomas - Last Filed: 01/07/19 02:32> ED Fall HPI - General Source: patient, EMS Mode of arrival: Stretcher Limitations: No Limitations - History of Present Illness Initial Comments: 63-year-old male with a past medical history end-stage disease on dialysis, a rthritis, COPD, GERD, AICD, and cardiac stent presents to the hospital with complaints of bleeding to left-sided scalp after fall and head injury. Patient fell and struck the left part of his head on his oxygen tank sustaining a laceration that would not stop bleeding. No LOC, headache, nausea, or vomiting reported. Patient also complains of left thigh pain without deformity. He denies neck pain. Takes aspirin 325 mg daily and heparin with dialysis. Last dialysis was January 06. Patient has not had a tetanus shot in over 10 years. Project Management: Dr. dawson ED Review of Systems ROS: Stated complaint: FALL W/SMALL LACERATION TO HEAD Other details as noted in HPI Comment: All other systems reviewed and negative ED Past Medical Hx - Past Medical History Previous Medical History?: Yes Hx Hypertension: No Hx Heart Attack/AMI: No Hx Congestive Heart Failure: No Hx Diabetes: No Hx GERD: Yes Hx Renal Disease: Yes (dialysis M, W, F) Hx Arthritis: Yes (uses cane) Hx Seizures: No Hx Asthma: No Hx COPD: Yes Hx HIV: No Additional medical history: pneumonia 06/2018 sent home with home O2 - Surgical History Past Surgical History?: Yes Hx Coronary Stent: Yes Hx Pacemaker: Yes (AICD) Additional Surgical History: fistula to left upper arm - Social History Smoking Status: Current Some Day Smoker Substance Use Type: Alcohol ED Physical Exam - General Limitations: Physical Limitation - Other Other exam information: General: No limitations, patient is alert in no acute distress Head exam: Left scalp with dried coagulated blood no active bleeding. No scalp step-off Eyes exam: Normal appearance, pupils equal reactive to light, extraocular movements intact ENT: Moist mucous membrane, normal oropharynx Neck exam: Normal inspection, full range of motion, no meningismus nontender Respiratory exam: Clear to auscultation bilateral, no wheezes, rales, crackles Cardiovascular: Normal rate and rhythm, systolic murmur, left arm dialysis access Abdomen: Soft, nondistended, and nontender, with normal bowel sounds, no rebound, or guarding Extremity: Full range of motion normal inspection no deformity, mid to lower left thigh pain with palpation without ecchymosis Back: Normal Inspection, full range of motion, no tenderness Neurologic: Alert, oriented x3, cranial nerves intact, no motor or sensory deficit Psychiatric: normal affect, normal mood Skin: 3 centimeter occipital parietal scalp lac ED Course Vital Signs 01/06/19 01/06/19 01/07/19 22:55 23:30 00:00 Temperature 97.5 F L Pulse Rate 102 H 94 H 89 Respiratory 14 14 17 Rate Blood Pressure 119/65 117/62 105/66 O2 Sat by Pulse 97 100 100 Oximetry - Consultations Consultation #1: 01/07/19 History 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 Recommends Kayexalate 45 g ED Medical Decision Making - Lab Data Result diagrams: 01/06/19 23:17 01/06/19 23:17 Lab Results 01/06/19 01/06/19 01/06/19 Range/Units 23:17 23:17 23:17 WBC 8.2 (4.5-11.0) K/mm3 RBC 3.89 (3.65-5.03) M/mm3 Hgb 11.8 (11.8-15.2) gm/dl Hct 36.1 (35.5-45.6) % MCV 93 (84-94) fl MCH 30 (28-32) pg MCHC 33 (32-34) % RDW 19.0 H (13.2-15.2) % Plt Count 177 (140-440) K/mm3 Lymph % (Auto) 10.9 L (13.4-35.0) % [place] % (Auto) 9.4 H (0.0-7.3) % Eos % (Auto) 1.6 (0.0-4.3) % Baso % (Auto) 0.8 (0.0-1.8) % Lymph # 0.9 L (1.2-5.4) K/mm3 [place] # 0.8 (0.0-0.8) K/mm3 Eos # 0.1 (0.0-0.4) K/mm3 Baso # 0.1 (0.0-0.1) K/mm3 Seg Neutrophils % 77.3 H (40.0-70.0) % Seg Neutrophils # 6.3 (1.8-7.7) K/mm3 PT 13.3 (12.2-14.9) Sec. INR 1.04 (0.87-1.13) APTT 31.2 (24.2-36.6) Sec. Sodium 137 (137-145) mmol/L Potassium 5.4 H (3.6-5.0) mmol/L Chloride 94.0 L (98-107) mmol/L Carbon Dioxide 28 (22-30) mmol/L Anion Gap 20 mmol/L BUN 20 (9-20) mg/dL Creatinine 4.8 H (0.8-1.5) mg/dL Estimated GFR 15 ml/min BUN/Creatinine Ratio 4 % Glucose 188 H (75-100) mg/dL Calcium 10.3 H (8.4-10.2) mg/dL - Radiology Data Radiology results: report reviewed CT head/brain wo con INDICATION / CLINICAL INFORMATION: fall, head injury, scalp laceratoin. TECHNIQUE: All CT scans at this location are performed using CT dose reduction for ALARA by means of automated exposure control. COMPARISON: None available. FINDINGS: No intracranial hemorrhage or evidence of subdural hematoma. No evidence of territorial infarction or mass effect. Basilar cisterns are normal. Generalized slight prominence of the ventricular system is noted with deepening of cortical sulci bilaterally. There is a right posterior parietal/occipital scalp hematoma. There is no evidence of underlying skull fracture. The orbits and paranasal sinuses appear intact. There is a mucosal retention cyst in the right sphenoid sinus. IMPRESSION: 1. No acute intracranial abnormalities. 2. Mild involutional changes. 3. Right sphenoid sinus disease. LEFT FEMUR, 4 VIEWS 01/06/2019 INDICATION / CLINICAL INFORMATION: Left leg pain.. COMPARISON: None available. FINDINGS: No fracture or dislocation. - Medical Decision Making Patient provided a dose of [place] for pain Tetanus shot provided No imaging signs of acute injury Kayexalate provided after discussion with casting room helper Lac repaired with rafael I examined repair prior to d/c Patient be discharged with follow-up Bedside commode and walker prescribed per request of family (handwritten prescriptions) - Differential Diagnosis fxt, contusion, sprain, intracranial hemorrhage Critical Care Time: No Critical care attestation.: If time is entered above; I have spent that time in minutes in the direct care of this critically ill patient, excluding procedure time. ED Disposition Is pt being admited?: No Does the pt Need Aspirin: No Time of Disposition: 02:29
[2019-01-07 02:29] VITALS: BP 105/66
== END 2019-01-07 02:48 | disposition home or self-care (01) ==
LOC: ED 22:39
DX: S01.01XA Laceration without foreign body of scalp, initial encounter (principal); S70.12XA Contusion of left thigh, initial encounter; E87.5 Hyperkalemia; F17.200 Nicotine dependence, unspecified, uncomplicated; M19.90 Unspecified osteoarthritis, unspecified site; K21.9 Gastro-esophageal reflux disease without esophagitis; J44.9 Chronic obstructive pulmonary disease, unspecified; N18.6 End stage renal disease; Z79.899 Other long term (current) drug therapy; Z98.890 Other specified postprocedural states; Z99.2 Dependence on renal dialysis; Z79.82 Long term (current) use of aspirin; Z95.810 Presence of automatic (implantable) cardiac defibrillator; W18.30XA Fall on same level, unspecified, initial encounter; Y93.89 Activity, other specified; Y92.89 Other specified places as the place of occurrence of the external cause; Y99.8 Other external cause status
CPT/HCPCS: 36415; 70450; 80048; 85025; 85610; 85730; 90471; 90715

== ENCOUNTER 2021-01-12 11:42 | Outpatient (CLI) | payer MEDICARE | END 2021-01-12 11:43 | disposition home or self-care (01) | LOC: ECHO 11:42 | PROVIDERS: ATTEND Internal Medicine Cardiovascular Disease | DX: I08.3 Combined rheumatic disorders of mitral, aortic and tricuspid valves (principal); I27.20 Pulmonary hypertension, unspecified | CPT/HCPCS: 93306 ==